=== PATIENT | male | born 1940 | race Caucasian/White ===

== ENCOUNTER 2017-01-06 07:51 | Day surgery (SDC) | payer MEDICARE, OTHER ==
[2017-01-06] MEDS ORDERED: Lactated Ringers 1,000 ML IV SCH (08:00)
[2017-01-06] MEDS ORDERED: Propofol 200 MG/20 ML SDV IV ONE (10:00)
[2017-01-06] MEDS ORDERED: Midazolam 1 MG/ML 2 ML SDV IV ONE (10:00)
--- NOTE | 2017-01-06 10:13 | PCM.OPNOTE ---
- General Post-Op/Procedure Note Date of Surgery/Procedure: 01/06/17 Operative Procedure(s): c scope Findings: in adequate prep diverticulosis Pre Op Diagnosis: screening Post-Op Diagnosis: in adequate prep. diverticulosis Anesthesia Technique: MAC Primary Surgeon: Jean-Claude Sanchez Anesthesia Provider: Lynn Evans Pathology: none Complications: None Condition: Good Free Text/Narrative:: see dictation n
[2017-01-06 11:20] VITALS: BP 132/74
--- NOTE | 2017-01-06 13:51 | OR ---
DATE OF OPERATION: 01/06/2017 SURGEON: Jean-Claude Sanchez MD PROCEDURE PERFORMED: Colonoscopy. PREOPERATIVE DIAGNOSIS: Colon cancer screening. POSTOPERATIVE DIAGNOSIS: Diverticulosis, inadequate prep. INDICATIONS FOR PROCEDURE: This is a 76-year-old white male who presents for followup colonoscopy, essentially without complaints. He was offered and accepted same. DESCRIPTION OF OPERATION: After an excellent IV sedation was administered, digital rectal exam was performed. Liquid stool was encountered. Flexible colonoscope was inserted and advanced without difficulty to the cecum. While we were able to reach the cecum, the prep was marginal at best. He had large deposits of thinned out particulate matter that we were able to irrigate. We were not able to successfully aspirate. The scope was then withdrawn. He was noted to have some scattered diverticula, but we could not clear the colon. He will be re-prepped and brought back at a later date. /[id number] /MODL
== END 2017-01-06 11:40 | disposition home or self-care (01) ==
LOC: FB.SDS 07:51
PROVIDERS: ATTEND Surgery
DX: Z12.11 Encounter for screening for malignant neoplasm of colon (principal); K57.30 Diverticulosis of large intestine without perforation or abscess without bleeding; I10 Essential (primary) hypertension; Z91.040 Latex allergy status; Z79.82 Long term (current) use of aspirin; Z79.84 Long term (current) use of oral hypoglycemic drugs; Z79.899 Other long term (current) drug therapy; N40.1 Benign prostatic hyperplasia with lower urinary tract symptoms; I25.810 Atherosclerosis of coronary artery bypass graft(s) without angina pectoris; E78.5 Hyperlipidemia, unspecified; I73.9 Peripheral vascular disease, unspecified; E11.9 Type 2 diabetes mellitus without complications; F32.9 Major depressive disorder, single episode, unspecified; Z96.651 Presence of right artificial knee joint; Z98.890 Other specified postprocedural states; Z87.891 Personal history of nicotine dependence
CPT/HCPCS: 00810; 82962; G0121; J2250; J2704; J7120

== ENCOUNTER 2017-01-07 08:44 | Day surgery (SDC) | payer MEDICARE, OTHER ==
[2017-01-07] MEDS ORDERED: Lactated Ringers 1,000 ML IV SCH (08:45)
[2017-01-07] MEDS ORDERED: Sodium Chloride 0.9% 10 ML Syringe FLUSH PRN (08:45)
[2017-01-07] MEDS ORDERED: Propofol 200 MG/20 ML SDV IV ONE (11:40)
[2017-01-07] MEDS ORDERED: Midazolam 1 MG/ML 2 ML SDV IV ONE (11:40)
--- NOTE | 2017-01-07 12:11 | PCM.OPNOTE ---
- General Post-Op/Procedure Note Date of Surgery/Procedure: 01/07/17 Operative Procedure(s): c scope with bx Findings: polyps ascending, sigmoid and rectum x2 Pre Op Diagnosis: screening Post-Op Diagnosis: polyps ascending, sigmoid and rectum x2. sigmioid diverticulosis Anesthesia Technique: MAC Primary Surgeon: Jean-Claude Sanchez Anesthesia Provider: Lynn Evans Pathology: polyps ascending, sigmoid and rectum x2 Complications: None Condition: Good Free Text/Narrative:: see dictation
[2017-01-07 13:00] VITALS: BP 152/66
--- NOTE | 2017-01-07 18:34 | OR ---
DATE OF OPERATION: 01/07/2017 SURGEON: Jean-Claude Sanchez MD PROCEDURE PERFORMED: Screening colonoscopy. PREOPERATIVE DIAGNOSIS: Need for screening C scope. POSTOPERATIVE DIAGNOSIS: Polyp ascending colon, polyp sigmoid colon, and rectal polyp x2 and sigmoid diverticulosis. INDICATIONS FOR PROCEDURE: This is a 76-year-old white male, who presents with the above-mentioned complaints. He was offered and accepted same. DESCRIPTION OF OPERATION: After an excellent IV sedation was administered, digital rectal exam was performed. No marked abnormality was noted. Flexible colonoscope was inserted and advanced without difficulty to the cecum. The prep was much improved from yesterday. Following findings were noted; ascending colon, small polypoid lesion, biopsied with cold biopsy forceps and sent for permanent. Transverse colon, unremarkable. Descending colon, unremarkable. Sigmoid, scattered diverticula. In the distal colon, there was a sigmoid polyp which was biopsied with cold biopsy forceps and sent for permanent. In the mid rectum, two polyps, one pedunculated biopsied with cold loop snare and one that was flat. This was biopsied and submitted in the same container. Colon was deflated, scope was removed. The patient tolerated the procedure well, and was taken to recovery room in good condition. /[id number] /MODL
== END 2017-01-07 13:25 | disposition home or self-care (01) ==
LOC: FB.SDS 08:44
PROVIDERS: ATTEND Surgery
DX: Z12.11 Encounter for screening for malignant neoplasm of colon (principal); D12.2 Benign neoplasm of ascending colon; D12.8 Benign neoplasm of rectum; K63.5 Polyp of colon; K57.30 Diverticulosis of large intestine without perforation or abscess without bleeding; I10 Essential (primary) hypertension; M19.90 Unspecified osteoarthritis, unspecified site; F34.1 Dysthymic disorder; E78.5 Hyperlipidemia, unspecified; F19.20 Other psychoactive substance dependence, uncomplicated; I73.9 Peripheral vascular disease, unspecified; E11.9 Type 2 diabetes mellitus without complications; F41.9 Anxiety disorder, unspecified; F32.9 Major depressive disorder, single episode, unspecified; I25.10 Atherosclerotic heart disease of native coronary artery without angina pectoris; Z95.1 Presence of aortocoronary bypass graft; Z79.84 Long term (current) use of oral hypoglycemic drugs; Z79.1 Long term (current) use of non-steroidal anti-inflammatories (NSAID); Z79.899 Other long term (current) drug therapy; Z79.82 Long term (current) use of aspirin; Z91.040 Latex allergy status; Z87.891 Personal history of nicotine dependence
CPT/HCPCS: 00810; 45380; 82962; 88305; J2250; J2704; J7120

== ENCOUNTER 2019-09-26 07:36 | Day surgery (SDC) | payer MEDICARE, OTHER ==
[~2019-09-26 07:36] MED LIST: Lactated Ringers 1,000 ML IV SCH; Sodium Chloride 0.9% 10 ML Syringe FLUSH PRN
[2019-09-26] MEDS ORDERED: fentaNYL 100 MCG/2 ML SDV IV ONE (07:37)
[2019-09-26] MEDS ORDERED: Midazolam 1 MG/ML 2 ML SDV IV ONE (07:37)
[2019-09-26] MEDS ORDERED: acetaZOLAMIDE 500 MG Cap.ER PO ONE ×2 (09:00→10:10)
[2019-09-26 10:28] VITALS: BP 119/65; PULSE 51
--- NOTE | 2019-09-26 14:54 | OR ---
DATE OF OPERATION: 09/26/2019 SURGEON: Leanne Turcios MD PREOPERATIVE DIAGNOSIS: Visually significant cataract, right eye. POSTOPERATIVE DIAGNOSIS: Visually significant cataract, right eye. PROCEDURES PERFORMED: Phacoemulsification with intraocular lens placement, right eye. ASSISTANTS: None. ANESTHESIA: Local with sedation. COMPLICATIONS: None. BLOOD LOSS: None. IMPLANTS: Jesus AU00T0, 20.5 diopter lens, serial number [id number], implanted. CDE: 1.55. DESCRIPTION OF PROCEDURE: After risks and benefits were reviewed with the patient, consent was obtained in the preoperative area, and the operative eye was marked with a surgical pen. In the preoperative area, a pledget was used to dilate the pupil consisting of a mixture of phenylephrine 10%, cyclopentolate 2%, moxifloxacin 0.5%, and bupivacaine 0.75%. The patient was taken to the operating room, where a time-out was performed, and the patient was placed under monitored anesthesia care. Topical tetracaine was used for anesthesia. The operative eye was prepped and draped for ophthalmic surgery, and the microscope was brought into position and focused. A paracentesis incision was made, followed by injection of preservative-free 1% lidocaine into the anterior chamber, followed by injection of Viscoat into the anterior chamber. A microkeratome blade was used to make a corneal limbal incision temporarily. A cystotome was used to make the beginning of the capsulorrhexis, which was carried around 360 degrees in a curvilinear fashion using Utrata forceps. A Tanner cannula with BSS was used to hydrodissect and hydrodelineate the nucleus. The nucleus was removed in a divide and conquer manner using phacoemulsification. Irrigation and aspiration were used to remove the remaining cortical material. Provisc was used to inflate the capsular bag, and a pre-loaded 20.5 diopter lens, serial number [id number] was injected into the capsular bag. A Sinskey hook was used to position and center the lens. Next, irrigation and aspiration was used to remove any remaining viscoelastic and cortical material from the anterior chamber. BSS on a cannula was used to inflate the anterior chamber and hydrate the wound. The wound was checked and found to be watertight. 1 mg of Moxifloxacin was injected into the anterior chamber. Drapes were removed and the eye was cleaned. A drop of brimonidine 0.15% and a drop of TobraDex was placed. The eye was shielded, and the patient was taken to the recovery room in stable condition. /[id number] MELVIN/MERRILL CC: SOFI PEREA PA-C MTDD
== END 2019-09-26 10:30 | disposition home or self-care (01) ==
LOC: FB.SDS 07:36
PROVIDERS: ATTEND Ophthalmology
DX: E11.36 Type 2 diabetes mellitus with diabetic cataract (principal); H25.13 Age-related nuclear cataract, bilateral; I10 Essential (primary) hypertension; I25.119 Atherosclerotic heart disease of native coronary artery with unspecified angina pectoris; E78.49 Other hyperlipidemia; N40.1 Benign prostatic hyperplasia with lower urinary tract symptoms; N13.8 Other obstructive and reflux uropathy; E78.5 Hyperlipidemia, unspecified; M19.90 Unspecified osteoarthritis, unspecified site; F41.9 Anxiety disorder, unspecified; F32.9 Major depressive disorder, single episode, unspecified; Z87.891 Personal history of nicotine dependence; Z79.02 Long term (current) use of antithrombotics/antiplatelets; Z79.82 Long term (current) use of aspirin; Z91.040 Latex allergy status; Z79.899 Other long term (current) drug therapy
CPT/HCPCS: 66984; A9270; J7120; 00142-QZ; 82962; J2250; J3010; V2632

== ENCOUNTER 2019-10-10 06:57 | Day surgery (SDC) | payer MEDICARE, OTHER ==
[2019-10-10] MEDS ORDERED: fentaNYL 100 MCG/2 ML SDV IV ONE (06:58)
[2019-10-10] MEDS ORDERED: Midazolam 1 MG/ML 2 ML SDV IV ONE (06:58)
[2019-10-10] MEDS ORDERED: Lactated Ringers 1,000 ML IV SCH (07:00)
[2019-10-10 07:26] VITALS: PULSE 57
[2019-10-10] MEDS ORDERED: acetaZOLAMIDE 500 MG Cap.ER PO ONE (09:00)
[2019-10-10 09:34] VITALS: BP 110/78
--- NOTE | 2019-10-11 08:31 | OR ---
DATE OF OPERATION: 10/10/2019 SURGEON: Leanne Turcios MD PREOPERATIVE DIAGNOSIS: Visually significant cataract, left eye. POSTOPERATIVE DIAGNOSIS: Visually significant cataract, left eye. PROCEDURES PERFORMED: Phacoemulsification with intraocular lens placement, left eye. ASSISTANTS: None. ANESTHESIA: Local with sedation. COMPLICATIONS: None. BLOOD LOSS: None. IMPLANTS: An Jesus AU00T0, 21.5 diopter lens, serial number [id number] implanted. CDE: 3.0. DESCRIPTION OF PROCEDURE: After risks and benefits were reviewed with the patient, consent was obtained in the preoperative area, and the operative eye was marked with a surgical pen. In the preoperative area, a pledget was used to dilate the pupil consisting of a mixture of phenylephrine 10%, cyclopentolate 2%, moxifloxacin 0.5%, and bupivacaine 0.75%. The patient was taken to the operating room, where a time-out was performed, and the patient was placed under monitored anesthesia care. Topical tetracaine was used for anesthesia. The operative eye was prepped and draped for ophthalmic surgery, and the microscope was brought into position and focused. A paracentesis incision was made, followed by injection of preservative-free 1% lidocaine into the anterior chamber, followed by injection of Viscoat into the anterior chamber. A microkeratome blade was used to make a corneal limbal incision temporally. A cystotome was used to make the beginning of the capsulorrhexis, which was carried around 360 degrees in a curvilinear fashion using Utrata forceps. A Tanner cannula with BSS was used to hydrodissect and hydrodelineate the nucleus. The nucleus was removed in a divide and conquer manner using phacoemulsification. Irrigation and aspiration were used to remove the remaining cortical material. Provisc was used to inflate the capsular bag, and a pre-loaded 21.5 Diopter lens, serial number [id number] was injected into the capsular bag. A Sinskey hook was used to position and center the lens. Next, irrigation and aspiration was used to remove any remaining viscoelastic and cortical material from the anterior chamber. BSS on a cannula was used to inflate the anterior chamber and hydrate the wound. The wound was checked and found to be watertight. 1 mg of Moxifloxacin was injected into the anterior chamber. Drapes were removed and the eye was cleaned. A drop of brimonidine 0.15% and a drop of TobraDex was placed. The eye was shielded, and the patient was taken to the recovery room in stable condition. /[id number] MELVIN/MERRILL CC: SOFI PEREA PA-C MTDD
== END 2019-10-10 11:20 | disposition home or self-care (01) ==
LOC: FB.SDS 06:57
PROVIDERS: ATTEND Ophthalmology
DX: E11.36 Type 2 diabetes mellitus with diabetic cataract (principal); H02.88B Meibomian gland dysfunction left eye, upper and lower eyelids; H02.88A Meibomian gland dysfunction right eye, upper and lower eyelids; H52.03 Hypermetropia, bilateral; H52.4 Presbyopia; H52.223 Regular astigmatism, bilateral; K21.9 Gastro-esophageal reflux disease without esophagitis; E78.5 Hyperlipidemia, unspecified; I10 Essential (primary) hypertension; I25.119 Atherosclerotic heart disease of native coronary artery with unspecified angina pectoris; Z96.1 Presence of intraocular lens; Z91.040 Latex allergy status; Z79.899 Other long term (current) drug therapy; Z79.02 Long term (current) use of antithrombotics/antiplatelets; Z79.82 Long term (current) use of aspirin
CPT/HCPCS: 00142; 66984; 82962; A9270; J2250; J3010; J7120; V2632

== ENCOUNTER 2020-04-02 01:47 | Inpatient (IN) | payer MEDICARE, OTHER ==
[2020-04-02] MEDS ORDERED: HYDROmorphone 2 MG/ML SDV IVPUSH ONE (02:37)
[2020-04-02] MEDS ORDERED: Ondansetron 4 MG/2 ML SDV IVPUSH ONE (02:37)
[2020-04-02] MEDS ORDERED: Diphtheria,Pertussis(Acell),Tetanus Vaccine 0.5 ML SDV IM ONE (02:41)
--- NOTE | 2020-04-02 02:50 | EDM.PDOC ---
ED HPI GENERAL MEDICAL PROBLEM - General Chief Complaint: Back Pain or Injury Stated Complaint: FELL Time Seen by Provider: 04/02/20 02:15 Source of Information: Reports: Patient History Limitations: Reports: No Limitations - History of Present Illness INITIAL COMMENTS - FREE TEXT/NARRATIVE: c/o L rib and flank pain at 6p he was walking through his garage, tripped on a small lip in the concrete, fell on L side, struck head and saw stars, no MON or neck pain now he sat in a chair when he got back to house, then had too much pain to get out of chair on his L side does not use a walker or cane, lives with only lab in [place] is prior creat 1.0 has a swollen L calf says he has abd pain "if you push in the right spot" altho did not appear to be tender anteriorly now on ASA and Plavix smoked in the past he took an oxycodone at home, EMS gave him 100 mcg of fentanyl h/o OK and CABG PCP is Rigoberto at [facility] who is only there on and Wed Treatments CORPORATE STATISTICAL FINANCIAL ANALYST: Reports: Other (see below) Other Treatments CORPORATE STATISTICAL FINANCIAL ANALYST: Fentanyl 100mcg IM prior to arrival, Oxycodone 5mg R mid-back Pain Score (Numeric/FACES): 2 L mid-back Pain Score (Numeric/FACES): 2 - Related Data Allergies Allergy/AdvReac Type Severity Reaction Status Date / Time latex Allergy Rash Verified 04/02/20 01:58 Home Meds: Home Meds Aspirin [Low Dose Aspirin EC] 81 mg PO DAILY 01/05/17 [History] Efinaconazole [Jublia] 1 applic TOP DAILY 01/05/17 [History] Ezetimibe [Zetia] 10 mg PO DAILY 01/05/17 [History] Ketoconazole [Nizoral 2% Shampoo] 1 applic TOP ASDIRECTED PRN 01/05/17 [History] Losartan/Hydrochlorothiazide [Losartan-HCTZ 100-25 MG] 0.5 tab PO DAILY 01/05/17 [History] Metoprolol Tartrate [Lopressor] 100 mg PO BID 01/05/17 [History] Omeprazole 20 mg PO DAILY 01/05/17 [History] Rosuvastatin [Crestor] 40 mg PO BEDTIME 01/05/17 [History] Sennosides/Docusate Sodium [Senna-Docusate Sodium] 1 each PO BID PRN 01/05/17 [History] Sertraline [Zoloft] 50 mg PO BEDTIME 01/05/17 [History] Sertraline [Zoloft] 150 mg PO DAILY 01/05/17 [History] amLODIPine [Norvasc] 10 mg PO DAILY 01/05/17 [History] buPROPion [Wellbutrin SR] 150 mg PO DAILY 01/05/17 [History] fluocinolone acetonide oiL [Dermotic] 4 drop EARBOTH BID PRN 01/05/17 [History] Clopidogrel [Plavix] 75 mg PO DAILY 09/11/19 [History] Dutasteride [Avodart] 0.5 mg PO DAILY 09/11/19 [History] Cyclobenzaprine [Flexeril] 5 mg TID PRN 04/02/20 [History] metFORMIN [Glucophage] 500 mg PO BIDMEALS 04/02/20 [History] Past Medical History HEENT History: Reports: Allergic Rhinitis, Cataract, Impaired Vision, Sinusitis, Other (See Below) Other HEENT History: CHRONIC CONJUCTIVITIS, MEIBOMIAN GLAND DYSFUNCTION, HYPEROPIA, ASTIGMATISM Cardiovascular History: Reports: Angina, CAD, High Cholesterol, Hypertension, OK, PVD Other Cardiovascular History: ATHEROSCLEROSIS Respiratory History: Reports: None Gastrointestinal History: Reports: GERD, Hemorrhoids Other Gastrointestinal History: RECTAL POLYP Genitourinary History: Reports: BPH, Prostate Disorder, Other (See Below) Other Genitourinary History: POLYURIA, LUTS RESIDENTIAL REMODELING SUBCONTRACTOR History: Reports: None Musculoskeletal History: Reports: Arthritis, Osteoarthritis Other Musculoskeletal History: SPINAL STENOSIS OF LUMBAR REGION, Neurological History: Reports: Neuropathy, Diabetic Psychiatric History: Reports: Anxiety, Depression Endocrine/Metabolic History: Reports: Diabetes, Type II, Obesity/BMI 30+ Hematologic History: Reports: Anticoagulation Therapy Other Hematologic History: NONTHROMBOCYTOPENIA PURPURA Oncologic (Cancer) History: Reports: Prostate - Infectious Disease History Infectious Disease History: Reports: Chicken Pox, Measles - Past Surgical History HEENT Surgical History: Reports: Cataract Surgery, Naso-Sinus Surgery Other HEENT Surgeries/Procedures: FESS. PHACO IOL RIGHT Cardiovascular Surgical History: Reports: Coronary Artery Bypass, Coronary Artery Stent, Varicose, Vascular Surgery Other Cardiovascular Surgeries/Procedures: VENOUS INSUFFICIENCY, 5 vessel CABG GI Surgical History: Reports: Colonoscopy Other GI Surgeries/Procedures: HEMORRHOIDS Other Male Surgeries/Procedures: ENLARGED PROSTATE, MALIGNANT NEOPLASM OF PROSTATE Musculoskeletal Surgical History: Reports: Knee Replacement Other Musculoskeletal Surgeries/Procedures:: R knee replacement Dermatological Surgical History: Reports: Other (See Below) Social & Family History - Family History Family Medical History: Noncontributory - Tobacco Use Smoking Status *Q: Former Smoker Years of Tobacco use: 25 Used Tobacco, but Quit: Yes Month/Year Tobacco Last Used: aug - Caffeine Use Caffeine Use: Reports: Coffee, Soda - Recreational Drug Use Recreational Drug Use: No ED ROS GENERAL - Review of Systems Review Of Systems: See Below Constitutional: Reports: No Symptoms HEENT: Reports: No Symptoms Respiratory: Reports: No Symptoms Cardiovascular: Reports: No Symptoms, Other (rib pain) Endocrine: Reports: No Symptoms GI/Abdominal: Reports: No Symptoms : Reports: No Symptoms Musculoskeletal: Reports: Back Pain Skin: Reports: No Symptoms Neurological: Reports: No Symptoms Psychiatric: Reports: No Symptoms Hematologic/Lymphatic: Reports: No Symptoms Immunologic: Reports: No Symptoms ED EXAM, GENERAL - Physical Exam Exam: See Below Exam Limited By: No Limitations General Appearance: Alert, WD/WN, Moderate Distress, Other (lying on R side, wincing at time when he moves, alert, conversant) Eye Exam: Bilateral Eye: PERRL Ears: Hearing Grossly Normal Nose: Normal Inspection Head: Atraumatic, Normocephalic, Other (NT, no STS, no ecchymosis) Neck: Normal Inspection, Supple, Non-Tender, Other (no PT, no spasm) Cardiovascular: Regular Rate, Rhythm, No Murmur GI/Abdominal: Other (inc'd adipose, protuberant, no definite tender however pt lying on R side, did have 2+ tender and winced at L flank in lumbar area in midscapular line) Back Exam: Other (back 2+ tender in L midscapular line in lower hemithorax without STS or ecchymosis, no crepitus noted in same area altho RN had reported some earlier) Extremities: Other (1-2+ edema to knees b/l, swollen L calf with smooth shiny skin that is 1.25x the size of R calf) Neurological: Alert, Oriented, CN II-XII Intact, Normal Cognition, No Motor/Sensory Deficits, Other (very talkative, friendly) Psychiatric: Normal Affect, Normal Mood Skin Exam: Warm, Dry, Intact, Normal Color, No Rash Lymphatic: No Adenopathy Course - Vital Signs Last Recorded V/S: Last Vital Signs Temp 36.5 C 04/02/20 01:47 Pulse 59 L 04/02/20 05:30 Resp 16 04/02/20 05:30 BP 134/66 04/02/20 05:30 Pulse Ox 95 04/02/20 05:30 - Orders/Labs/Meds Orders: Active Orders 24 hr Category Date Time Status Admission Status [Patient Status] [ADT] Routine ADT 04/02/20 05:38 Ordered EKG Documentation Completion [RC] ASDIRECTED Care 04/02/20 02:38 Active Oxygen Therapy Adult [Oxygen Therapy, ED] [RC] Care 04/02/20 04:00 Active ASDIRECTED Vaccines to be Administered [RC] PER UNIT ROUTINE Care 04/02/20 02:41 Active Chest Abdomen Pelvis w Cont [CT] Stat Exams 04/02/20 02:37 Taken Sodium Chloride 0.9% [Saline Flush] Med 04/02/20 02:51 Active 10 ml FLUSH ASDIRECTED PRN EKG 12 Lead [EK] Routine Ther 04/02/20 02:37 Ordered Medication Orders Sodium Chloride (Saline Flush) 10 ml FLUSH ASDIRECTED PRN PRN Reason: Keep Vein Open Last Admin: 04/02/20 02:53 Dose: 10 ml Documented by: REGINA Labs: Laboratory Tests 04/02/20 04/02/20 04/02/20 Range/Units 02:40 02:50 02:50 WBC 9.8 (4.5-12.0) X10-3/uL RBC 4.16 L (4.30-5.75) x10(6)uL Hgb 12.4 L (13.5-17.8) g/dL Hct 38.2 (30.0-51.3) % MCV 91.7 (80-96) fL MCH 29.7 (27.7-33.6) pg MCHC 32.4 (32.2-35.4) g/dL RDW 13.0 (11.5-15.5) % Plt Count 210 (125-369) X10(3)uL MPV 7.6 (7.4-10.4) fL Neut % (Auto) 77.9 (46-82) % Lymph % (Auto) 9.1 L (13-37) % [place] % (Auto) 9.0 (4-12) % Eos % (Auto) 4 (1.0-5.0) % Baso % (Auto) 0 (0-2) % Neut # (Auto) 7.6 (1.6-8.3) # Lymph # (Auto) 0.9 (0.6-5.0) # [place] # (Auto) 0.9 (0.0-1.3) # Eos # (Auto) 0.4 (0.0-0.8) # Baso # (Auto) 0.0 (0.0-0.2) # PT (9.0-11.1) sec INR (1.00-1.24) APTT (24.4-33.2) SECONDS D-Dimer, Quantitative (0.0-0.59) mg/LFEU Sodium 140 (135-145) mmol/L Potassium 3.9 (3.5-5.3) mmol/L Chloride 103 (100-110) mmol/L Carbon Dioxide 31 (21-32) mmol/L BUN 24 H (7-18) mg/dL Creatinine 1.3 (0.70-1.30) mg/dL Est Cr Clr Drug Dosing 45.31 mL/min Estimated GFR (MDRD) 53 L (>60) BUN/Creatinine Ratio 18.5 (9-20) Glucose 170 H (80-116) mg/dL Calcium 8.3 L (8.6-10.2) mg/dL Total Bilirubin 0.4 (0.1-1.3) mg/dL AST 83 H (5-25) IU/L ALT 125 H (12-36) U/L Alkaline Phosphatase 94 (56-112) IU/L Troponin I (4.0-60.3) pg/mL C-Reactive Protein (0.5-0.9) mg/dL NT-Pro-B Natriuret Pep (<=450) pg/mL Total Protein 7.1 (6.0-8.0) g/dL Albumin 3.0 L (3.2-4.6) g/dL Globulin 4.1 g/dL Albumin/Globulin Ratio 0.7 Urine Color Yellow (YELLOW) Urine Appearance Clear (CLEAR) Urine pH 7.0 H (5.0-6.5) Ur Specific [place] 1.005 L (1.010-1.025) Urine Protein Trace (NEGATIVE) mg/dL Urine Glucose (UA) Normal (NORMAL) mg/dL Urine Ketones Negative (NEGATIVE) mg/dL Urine Occult Blood Trace (NEGATIVE) Urine Nitrite Negative (NEGATIVE) Urine Bilirubin Negative (NEGATIVE) Urine Urobilinogen 4 H (NEGATIVE) mg/dL Ur Leukocyte Esterase Negative (NEGATIVE) Urine RBC 5-10 H (0-5) Urine WBC 0-5 (0-5) Ur Squamous Epith Cells Rare (NS,R,O) Urine Bacteria Few H (NS) Urine Mucus Few H (NS) 04/02/20 04/02/20 04/02/20 Range/Units 02:50 02:50 02:50 WBC (4.5-12.0) X10-3/uL RBC (4.30-5.75) x10(6)uL Hgb (13.5-17.8) g/dL Hct (30.0-51.3) % MCV (80-96) fL MCH (27.7-33.6) pg MCHC (32.2-35.4) g/dL RDW (11.5-15.5) % Plt Count (125-369) X10(3)uL MPV (7.4-10.4) fL Neut % (Auto) (46-82) % Lymph % (Auto) (13-37) % [place] % (Auto) (4-12) % Eos % (Auto) (1.0-5.0) % Baso % (Auto) (0-2) % Neut # (Auto) (1.6-8.3) # Lymph # (Auto) (0.6-5.0) # [place] # (Auto) (0.0-1.3) # Eos # (Auto) (0.0-0.8) # Baso # (Auto) (0.0-0.2) # PT 11.6 H (9.0-11.1) sec INR 1.08 (1.00-1.24) APTT (24.4-33.2) SECONDS D-Dimer, Quantitative 5.41 H (0.0-0.59) mg/LFEU Sodium (135-145) mmol/L Potassium (3.5-5.3) mmol/L Chloride (100-110) mmol/L Carbon Dioxide (21-32) mmol/L BUN (7-18) mg/dL Creatinine (0.70-1.30) mg/dL Est Cr Clr Drug Dosing mL/min Estimated GFR (MDRD) (>60) BUN/Creatinine Ratio (9-20) Glucose (80-116) mg/dL Calcium (8.6-10.2) mg/dL Total Bilirubin (0.1-1.3) mg/dL AST (5-25) IU/L ALT (12-36) U/L Alkaline Phosphatase (56-112) IU/L Troponin I 12.4 (4.0-60.3) pg/mL C-Reactive Protein 0.8 (0.5-0.9) mg/dL NT-Pro-B Natriuret Pep 338 (<=450) pg/mL Total Protein (6.0-8.0) g/dL Albumin (3.2-4.6) g/dL Globulin g/dL Albumin/Globulin Ratio Urine Color (YELLOW) Urine Appearance (CLEAR) Urine pH (5.0-6.5) Ur Specific [place] (1.010-1.025) Urine Protein (NEGATIVE) mg/dL Urine Glucose (UA) (NORMAL) mg/dL Urine Ketones (NEGATIVE) mg/dL Urine Occult Blood (NEGATIVE) Urine Nitrite (NEGATIVE) Urine Bilirubin (NEGATIVE) Urine Urobilinogen (NEGATIVE) mg/dL Ur Leukocyte Esterase (NEGATIVE) Urine RBC (0-5) Urine WBC (0-5) Ur Squamous Epith Cells (NS,R,O) Urine Bacteria (NS) Urine Mucus (NS) 04/02/20 Range/Units 02:50 WBC (4.5-12.0) X10-3/uL RBC (4.30-5.75) x10(6)uL Hgb (13.5-17.8) g/dL Hct (30.0-51.3) % MCV (80-96) fL MCH (27.7-33.6) pg MCHC (32.2-35.4) g/dL RDW (11.5-15.5) % Plt Count (125-369) X10(3)uL MPV (7.4-10.4) fL Neut % (Auto) (46-82) % Lymph % (Auto) (13-37) % [place] % (Auto) (4-12) % Eos % (Auto) (1.0-5.0) % Baso % (Auto) (0-2) % Neut # (Auto) (1.6-8.3) # Lymph # (Auto) (0.6-5.0) # [place] # (Auto) (0.0-1.3) # Eos # (Auto) (0.0-0.8) # Baso # (Auto) (0.0-0.2) # PT (9.0-11.1) sec INR (1.00-1.24) APTT 25.0 (24.4-33.2) SECONDS D-Dimer, Quantitative (0.0-0.59) mg/LFEU Sodium (135-145) mmol/L Potassium (3.5-5.3) mmol/L Chloride (100-110) mmol/L Carbon Dioxide (21-32) mmol/L BUN (7-18) mg/dL Creatinine (0.70-1.30) mg/dL Est Cr Clr Drug Dosing mL/min Estimated GFR (MDRD) (>60) BUN/Creatinine Ratio (9-20) Glucose (80-116) mg/dL Calcium (8.6-10.2) mg/dL Total Bilirubin (0.1-1.3) mg/dL AST (5-25) IU/L ALT (12-36) U/L Alkaline Phosphatase (56-112) IU/L Troponin I (4.0-60.3) pg/mL C-Reactive Protein (0.5-0.9) mg/dL NT-Pro-B Natriuret Pep (<=450) pg/mL Total Protein (6.0-8.0) g/dL Albumin (3.2-4.6) g/dL Globulin g/dL Albumin/Globulin Ratio Urine Color (YELLOW) Urine Appearance (CLEAR) Urine pH (5.0-6.5) Ur Specific [place] (1.010-1.025) Urine Protein (NEGATIVE) mg/dL Urine Glucose (UA) (NORMAL) mg/dL Urine Ketones (NEGATIVE) mg/dL Urine Occult Blood (NEGATIVE) Urine Nitrite (NEGATIVE) Urine Bilirubin (NEGATIVE) Urine Urobilinogen (NEGATIVE) mg/dL Ur Leukocyte Esterase (NEGATIVE) Urine RBC (0-5) Urine WBC (0-5) Ur Squamous Epith Cells (NS,R,O) Urine Bacteria (NS) Urine Mucus (NS) Meds: Medications Generic Name Dose Route Start Last Admin Trade Name Freq PRN Reason Stop Dose Admin Sodium Chloride 10 ml 04/02/20 02:51 04/02/20 02:53 Saline Flush FLUSH 10 ml ASDIRECTED PRN Administration Keep Vein Open Discontinued Medications Generic Name Dose Route Start Last Admin Trade Name Freq PRN Reason Stop Dose Admin Diphtheria/Tetanus/Acell Pertussis 0.5 ml 04/02/20 02:41 04/02/20 02:56 Adacel IM 04/02/20 02:42 0.5 ml .ONCE ONE Administration Hydromorphone HCl 2 mg 04/02/20 02:37 04/02/20 02:54 Dilaudid IVPUSH 04/02/20 02:38 2 mg ONETIME ONE Administration Iopamidol 100 ml 04/02/20 03:38 04/02/20 04:02 Isovue-370 (76%) IV 04/02/20 03:39 100 ml . DIRECTED ONE Administration Ondansetron HCl 4 mg 04/02/20 02:37 04/02/20 02:50 Zofran IVPUSH 04/02/20 02:38 4 mg ONETIME ONE Administration - Re-Assessments/Exams Free Text/Narrative Re-Assessment/Exam: 04/02/20 05:45 d-dimer 10x ULN in context of swollen R calf c/w R DVT, will give Lovenox pending RLE u/s later this AM as no bleed noted on CT does have rib fx's of 6-8 on L with multiple fx's of 7 but no flail chest on CT per radiologist is well as a tiny L pneumothorax and a small L pleural effusion pt still quite uncomfortable even after 2 mg Dilaudid pt agrees to admission Departure - Departure Time of Disposition: 05:41 Disposition: Admitted As Inpatient 68 Condition: Good Clinical Impression: Multiple fractures of ribs of left side, Pneumothorax, left, Pleural effusion on left, Elevated d-dimer, Hypoalbuminemia, Elevated liver function tests, Microscopic hematuria, Acute on chronic renal insufficiency, Normocytic nor mochromic anemia, First degree atrioventricular block, Abnormal EKG, Swelling of left lower extremity - Discharge Information *PRESCRIPTION DRUG MONITORING PROGRAM REVIEWED*: Not Applicable *COPY OF PRESCRIPTION DRUG MONITORING REPORT IN PATIENT RADHAMES: Not Applicable Referrals: Leatha Silverio NP [Primary Care Provider] - Forms: ED Department Discharge Sepsis Event Note (ED) - Evaluation Sepsis Screening Result: No Definite Risk - Focused Exam Vital Signs: Vital Signs Temp Pulse Resp BP Pulse Ox Pulse Ox 04/02/20 05:30 59 L 16 134/66 95 04/02/20 05:00 61 16 130/58 L 93 L 04/02/20 04:45 61 16 130/65 93 L 04/02/20 04:30 61 14 122/58 L 92 L 04/02/20 04:15 63 16 137/60 89 L 89 L 04/02/20 04:00 67 16 129/59 L 77 L 77 L 04/02/20 03:15 64 16 138/67 90 L 04/02/20 02:45 64 16 138/67 90 L 04/02/20 01:47 36.5 C 70 20 154/68 H 95 - My Orders Last 24 Hours: My Active Orders 04/02/20 02:37 Chest Abdomen Pelvis w Cont [CT] Stat EKG 12 Lead [EK] Routine 04/02/20 02:38 EKG Documentation Completion [RC] ASDIRECTED 04/02/20 02:41 Vaccines to be Administered [RC] PER UNIT ROUTINE 04/02/20 02:51 Sodium Chloride 0.9% [Saline Flush] 10 ml FLUSH ASDIRECTED PRN 04/02/20 04:00 Oxygen Therapy Adult [Oxygen Therapy, ED] [RC] ASDIRECTED 04/02/20 05:38 Admission Status [Patient Status] [ADT] Routine - Assessment/Plan Last 24 Hours: My Active Orders 04/02/20 02:37 Chest Abdomen Pelvis w Cont [CT] Stat EKG 12 Lead [EK] Routine 04/02/20 02:38 EKG Documentation Completion [RC] ASDIRECTED 04/02/20 02:41 Vaccines to be Administered [RC] PER UNIT ROUTINE 04/02/20 02:51 Sodium Chloride 0.9% [Saline Flush] 10 ml FLUSH ASDIRECTED PRN 04/02/20 04:00 Oxygen Therapy Adult [Oxygen Therapy, ED] [RC] ASDIRECTED 04/02/20 05:38 Admission Status [Patient Status] [ADT] Routine
[2020-04-02] MEDS: Sodium Chloride 0.9% 10 ML Syringe FLUSH PRN ×3 (02:53→21:25)
[2020-04-02] MEDS ORDERED: Iopamidol 755 Mg/ML 100 ML Bottle IV ONE (03:38)
[2020-04-02] MEDS ORDERED: Magnesium Hydroxide 400 MG/5 ML Susp 30 ML Cup PO PRN (05:53)
[2020-04-02] MEDS ORDERED: Zolpidem 5 MG Tab PO PRN (05:53)
[2020-04-02] MEDS ORDERED: Bisacodyl 5 MG Tab PO PRN (05:53)
[2020-04-02] MEDS ORDERED: Enoxaparin 100 MG/1 ML Syringe SUBCUT ONE (05:53)
[2020-04-02] MEDS ORDERED: HYDROmorphone 2 MG/ML SDV IVPUSH PRN (05:53)
[2020-04-02] MEDS ORDERED: Ondansetron 4 MG/2 ML SDV IV PRN (05:53)
[2020-04-02] MEDS ORDERED: Sodium Chloride 0.9% 10 ML Syringe FLUSH PRN (05:53)
[2020-04-02] MEDS ORDERED: oxyCODONE 5 MG Tab PO PRN (05:53)
[2020-04-02] MEDS ORDERED: FLUOCINOLONE ACETONIDE OIL EARBOTH PRN (06:06)
[2020-04-02] MEDS ORDERED: Acetaminophen/oxyCODONE 325-5 MG Tab PO PRN (08:51)
--- NOTE | 2020-04-02 08:58 | PCM.HP.2 ---
H&P History of Present Illness - General Date of Service: 04/02/20 Admit Problem/Dx: Admission Diagnosis/Problem Admission Diagnosis/Problem Rib pain on left side Source of Information: Patient, Old Records, Provider, RN History Limitations: Reports: No Limitations - History of Present Illness Initial Comments - Free Text/Narative: Mr. Lowery a 80 yo male admitted yesterday with multiple rib fractures after a fall on level ground. He came in by EMS, and is admitted for pain control. Pain is sharp severe worse with any movement. He has a history of coronary disease, hypertension, obesity, chronic left leg swelling. He also endorses a h/o HTN, DM and Insomnia. R mid-back Pain Score (Numeric/FACES): 2 L mid-back Pain Score (Numeric/FACES): 5 - Related Data Allergies/Adverse Reactions: Allergies Allergy/AdvReac Type Severity Reaction Status Date / Time latex Allergy Rash Verified 04/02/20 01:58 Home Medications: Home Meds Aspirin [Low Dose Aspirin EC] 81 mg PO DAILY 01/05/17 [History] Efinaconazole [Jublia] 1 applic TOP DAILY 01/05/17 [History] Ezetimibe [Zetia] 10 mg PO DAILY 01/05/17 [History] Ketoconazole [Nizoral 2% Shampoo] 1 applic TOP ASDIRECTED PRN 01/05/17 [History] Losartan/Hydrochlorothiazide [Losartan-HCTZ 100-25 MG] 0.5 tab PO DAILY 01/05/17 [History] Metoprolol Tartrate [Lopressor] 100 mg PO BID 01/05/17 [History] Omeprazole 20 mg PO DAILY 01/05/17 [History] Rosuvastatin [Crestor] 40 mg PO BEDTIME 01/05/17 [History] Sennosides/Docusate Sodium [Senna-Docusate Sodium] 1 each PO BID PRN 01/05/17 [History] Sertraline [Zoloft] 50 mg PO BEDTIME 01/05/17 [History] Sertraline [Zoloft] 150 mg PO DAILY 01/05/17 [History] amLODIPine [Norvasc] 10 mg PO DAILY 01/05/17 [History] buPROPion [Wellbutrin SR] 150 mg PO DAILY 01/05/17 [History] fluocinolone acetonide oiL [Dermotic] 4 drop EARBOTH BID PRN 01/05/17 [History] Clopidogrel [Plavix] 75 mg PO DAILY 09/11/19 [History] Dutasteride [Avodart] 0.5 mg PO DAILY 09/11/19 [History] Cyclobenzaprine [Flexeril] 5 mg TID PRN 04/02/20 [History] metFORMIN [Glucophage] 500 mg PO BIDMEALS 04/02/20 [History] Past Medical History HEENT History: Reports: Allergic Rhinitis, Cataract, Impaired Vision, Sinusitis, Other (See Below) Other HEENT History: CHRONIC CONJUCTIVITIS, MEIBOMIAN GLAND DYSFUNCTION, H YPEROPIA, ASTIGMATISM Cardiovascular History: Reports: Angina, CAD, High Cholesterol, Hypertension, DC, PVD Other Cardiovascular History: ATHEROSCLEROSIS Respiratory History: Reports: None Gastrointestinal History: Reports: GERD, Hemorrhoids Other Gastrointestinal History: RECTAL POLYP Genitourinary History: Reports: BPH, Prostate Disorder, Other (See Below) Other Genitourinary History: POLYURIA, 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 Musculoskeletal History: Reports: Arthritis, Osteoarthritis Other Musculoskeletal History: SPINAL STENOSIS OF LUMBAR REGION, Neurological History: Reports: Neuropathy, Diabetic Psychiatric History: Reports: Anxiety, Depression Endocrine/Metabolic History: Reports: Diabetes, Type II, Obesity/BMI 30+ Hematologic History: Reports: Anticoagulation Therapy Other Hematologic History: NONTHROMBOCYTOPENIA PURPURA Oncologic (Cancer) History: Reports: Prostate - Infectious Disease History Infectious Disease History: Reports: Chicken Pox, Measles - Past Surgical History HEENT Surgical History: Reports: Cataract Surgery, Naso-Sinus Surgery Other HEENT Surgeries/Procedures: FESS. PHACO IOL RIGHT Cardiovascular Surgical History: Reports: Coronary Artery Bypass, Coronary Artery Stent, Varicose, Vascular Surgery Other Cardiovascular Surgeries/Procedures: VENOUS INSUFFICIENCY, 5 vessel CABG GI Surgical History: Reports: Colonoscopy Other GI Surgeries/Procedures: HEMORRHOIDS Other Male Surgeries/Procedures: ENLARGED PROSTATE, MALIGNANT NEOPLASM OF PROSTATE Musculoskeletal Surgical History: Reports: Knee Replacement Other Musculoskeletal Surgeries/Procedures:: R knee replacement Social & Family History - Family History Family Medical History: Noncontributory - Tobacco Use Smoking Status *Q: Former Smoker Years of Tobacco use: 25 Used Tobacco, but Quit: Yes Month/Year Tobacco Last Used: aug - Caffeine Use Caffeine Use: Reports: Coffee, Soda - Recreational Drug Use Recreational Drug Use: No H&P Review of Systems - Review of Systems: Review Of Systems: Comprehensive ROS is negative, except as noted in HPI. Exam - Exam Exam: See Below - Vital Signs Vital Signs: Last Vital Signs Temp 98.3 F 04/02/20 07:58 Pulse 58 L 04/02/20 07:58 Resp 18 04/02/20 07:58 BP 127/69 04/02/20 07:58 Pulse Ox 92 L 04/02/20 07:58 Weight: 93.468 kg - Exam Quality Assessment: Supplemental Oxygen General: Alert, Oriented, 4 HEENT: PERRLA, Hearing Intact, Mucosa Moist & [place], Nares Patent, Normal Nasal Septum, Posterior Pharynx Clear, Conjunctiva Clear, EOMI, EACs Clear, TMs Clear Neck: Supple, Trachea Midline, 2 Lungs: Decreased Breath Sounds, Other (Tender rib cage,prosterioly) Cardiovascular: Regular Rate GI/Abdominal Exam: Normal Bowel Sounds, Soft (Male) Exam: Deferred Rectal (Males) Exam: Deferred Back Exam: Normal Inspection, Full Range of Motion, NT Extremities: Normal Inspection, Normal Range of Motion, Non-Tender, No Pedal Edema, Normal Capillary Refill Skin: Warm, Dry, Intact Neurological: Cranial Nerves Intact, Reflexes Equal Bilateral Neuro Extensive - Mental Status: Alert, Oriented x3, Normal Mood/Affect, Normal Cognition Neuro Extensive - Motor, Sensory, Reflexes: CN II-XII Intact, Normal Gait, N ormal Reflexes Psychiatric: Alert, Normal Affect, Normal Mood - Patient Data Lab Results Last 24 hrs: Laboratory Results - last 24 hr 04/02/20 04/02/20 04/02/20 Range/Units 02:40 02:50 02:50 WBC 9.8 (4.5-12.0) X10-3/uL RBC 4.16 L (4.30-5.75) x10(6)uL Hgb 12.4 L (13.5-17.8) g/dL Hct 38.2 (30.0-51.3) % MCV 91.7 (80-96) fL MCH 29.7 (27.7-33.6) pg MCHC 32.4 (32.2-35.4) g/dL RDW 13.0 (11.5-15.5) % Plt Count 210 (125-369) X10(3)uL MPV 7.6 (7.4-10.4) fL Neut % (Auto) 77.9 (46-82) % Lymph % (Auto) 9.1 L (13-37) % [place] % (Auto) 9.0 (4-12) % Eos % (Auto) 4 (1.0-5.0) % Baso % (Auto) 0 (0-2) % Neut # (Auto) 7.6 (1.6-8.3) # Lymph # (Auto) 0.9 (0.6-5.0) # [place] # (Auto) 0.9 (0.0-1.3) # Eos # (Auto) 0.4 (0.0-0.8) # Baso # (Auto) 0.0 (0.0-0.2) # PT (9.0-11.1) sec INR (1.00-1.24) APTT (24.4-33.2) SECONDS D-Dimer, Quantitative (0.0-0.59) mg/LFEU Sodium 140 (135-145) mmol/L Potassium 3.9 (3.5-5.3) mmol/L Chloride 103 (100-110) mmol/L Carbon Dioxide 31 (21-32) mmol/L BUN 24 H (7-18) mg/dL Creatinine 1.3 (0.70-1.30) mg/dL Est Cr Clr Drug Dosing 45.31 mL/min Estimated GFR (MDRD) 53 L (>60) BUN/Creatinine Ratio 18.5 (9-20) Glucose 170 H (80-116) mg/dL Calcium 8.3 L (8.6-10.2) mg/dL Total Bilirubin 0.4 (0.1-1.3) mg/dL AST 83 H (5-25) IU/L ALT 125 H (12-36) U/L Alkaline Phosphatase 94 (56-112) IU/L Troponin I (4.0-60.3) pg/mL C-Reactive Protein (0.5-0.9) mg/dL NT-Pro-B Natriuret Pep (<=450) pg/mL Total Protein 7.1 (6.0-8.0) g/dL Albumin 3.0 L (3.2-4.6) g/dL Globulin 4.1 g/dL Albumin/Globulin Ratio 0.7 Urine Color Yellow (YELLOW) Urine Appearance Clear (CLEAR) Urine pH 7.0 H (5.0-6.5) Ur Specific [place] 1.005 L (1.010-1.025) Urine Protein Trace (NEGATIVE) mg/dL Urine Glucose (UA) Normal (NORMAL) mg/dL Urine Ketones Negative (NEGATIVE) mg/dL Urine Occult Blood Trace (NEGATIVE) Urine Nitrite Negative (NEGATIVE) Urine Bilirubin Negative (NEGATIVE) Urine Urobilinogen 4 H (NEGATIVE) mg/dL Ur Leukocyte Esterase Negative (NEGATIVE) Urine RBC 5-10 H (0-5) Urine WBC 0-5 (0-5) Ur Squamous Epith Cells Rare (NS,R,O) Urine Bacteria Few H (NS) Urine Mucus Few H (NS) 04/02/20 04/02/20 04/02/20 Range/Units 02:50 02:50 02:50 WBC (4.5-12.0) X10-3/uL RBC (4.30-5.75) x10(6)uL Hgb (13.5-17.8) g/dL Hct (30.0-51.3) % MCV (80-96) fL MCH (27.7-33.6) pg MCHC (32.2-35.4) g/dL RDW (11.5-15.5) % Plt Count (125-369) X10(3)uL MPV (7.4-10.4) fL Neut % (Auto) (46-82) % Lymph % (Auto) (13-37) % [place] % (Auto) (4-12) % Eos % (Auto) (1.0-5.0) % Baso % (Auto) (0-2) % Neut # (Auto) (1.6-8.3) # Lymph # (Auto) (0.6-5.0) # [place] # (Auto) (0.0-1.3) # Eos # (Auto) (0.0-0.8) # Baso # (Auto) (0.0-0.2) # PT 11.6 H (9.0-11.1) sec INR 1.08 (1.00-1.24) APTT (24.4-33.2) SECONDS D-Dimer, Quantitative 5.41 H (0.0-0.59) mg/LFEU Sodium (135-145) mmol/L Potassium (3.5-5.3) mmol/L Chloride (100-110) mmol/L Carbon Dioxide (21-32) mmol/L BUN (7-18) mg/dL Creatinine (0.70-1.30) mg/dL Est Cr Clr Drug Dosing mL/min Estimated GFR (MDRD) (>60) BUN/Creatinine Ratio (9-20) Glucose (80-116) mg/dL Calcium (8.6-10.2) mg/dL Total Bilirubin (0.1-1.3) mg/dL AST (5-25) IU/L ALT (12-36) U/L Alkaline Phosphatase (56-112) IU/L Troponin I 12.4 (4.0-60.3) pg/mL C-Reactive Protein 0.8 (0.5-0.9) mg/dL NT-Pro-B Natriuret Pep 338 (<=450) pg/mL Total Protein (6.0-8.0) g/dL Albumin (3.2-4.6) g/dL Globulin g/dL Albumin/Globulin Ratio Urine Color (YELLOW) Urine Appearance (CLEAR) Urine pH (5.0-6.5) Ur Specific [place] (1.010-1.025) Urine Protein (NEGATIVE) mg/dL Urine Glucose (UA) (NORMAL) mg/dL Urine Ketones (NEGATIVE) mg/dL Urine Occult Blood (NEGATIVE) Urine Nitrite (NEGATIVE) Urine Bilirubin (NEGATIVE) Urine Urobilinogen (NEGATIVE) mg/dL Ur Leukocyte Esterase (NEGATIVE) Urine RBC (0-5) Urine WBC (0-5) Ur Squamous Epith Cells (NS,R,O) Urine Bacteria (NS) Urine Mucus (NS) 04/02/20 Range/Units 02:50 WBC (4.5-12.0) X10-3/uL RBC (4.30-5.75) x10(6)uL Hgb (13.5-17.8) g/dL Hct (30.0-51.3) % MCV (80-96) fL MCH (27.7-33.6) pg MCHC (32.2-35.4) g/dL RDW (11.5-15.5) % Plt Count (125-369) X10(3)uL MPV (7.4-10.4) fL Neut % (Auto) (46-82) % Lymph % (Auto) (13-37) % [place] % (Auto) (4-12) % Eos % (Auto) (1.0-5.0) % Baso % (Auto) (0-2) % Neut # (Auto) (1.6-8.3) # Lymph # (Auto) (0.6-5.0) # [place] # (Auto) (0.0-1.3) # Eos # (Auto) (0.0-0.8) # Baso # (Auto) (0.0-0.2) # PT (9.0-11.1) sec INR (1.00-1.24) APTT 25.0 (24.4-33.2) SECONDS D-Dimer, Quantitative (0.0-0.59) mg/LFEU Sodium (135-145) mmol/L Potassium (3.5-5.3) mmol/L Chloride (100-110) mmol/L Carbon Dioxide (21-32) mmol/L BUN (7-18) mg/dL Creatinine (0.70-1.30) mg/dL Est Cr Clr Drug Dosing mL/min Estimated GFR (MDRD) (>60) BUN/Creatinine Ratio (9-20) Glucose (80-116) mg/dL Calcium (8.6-10.2) mg/dL Total Bilirubin (0.1-1.3) mg/dL AST (5-25) IU/L ALT (12-36) U/L Alkaline Phosphatase (56-112) IU/L Troponin I (4.0-60.3) pg/mL C-Reactive Protein (0.5-0.9) mg/dL NT-Pro-B Natriuret Pep (<=450) pg/mL Total Protein (6.0-8.0) g/dL Albumin (3.2-4.6) g/dL Globulin g/dL Albumin/Globulin Ratio Urine Color (YELLOW) Urine Appearance (CLEAR) Urine pH (5.0-6.5) Ur Specific [place] (1.010-1.025) Urine Protein (NEGATIVE) mg/dL Urine Glucose (UA) (NORMAL) mg/dL Urine Ketones (NEGATIVE) mg/dL Urine Occult Blood (NEGATIVE) Urine Nitrite (NEGATIVE) Urine Bilirubin (NEGATIVE) Urine Urobilinogen (NEGATIVE) mg/dL Ur Leukocyte Esterase (NEGATIVE) Urine RBC (0-5) Urine WBC (0-5) Ur Squamous Epith Cells (NS,R,O) Urine Bacteria (NS) Urine Mucus (NS) Result Diagrams: 04/02/20 02:50 04/02/20 02:50 EKG INTERPRETATION Rhythm: NSR Sepsis Event Note - Evaluation Sepsis Screening Result: No Definite Risk - Focused Exam Vital Signs: Vital Signs Temp Pulse Resp BP Pulse Ox Pulse Ox 04/02/20 07:58 98.3 F 58 L 18 127/69 92 L 04/02/20 06:15 98.0 F 70 15 137/72 91 L 04/02/20 06:12 91 L 04/02/20 06:01 57 L 16 117/66 90 L 04/02/20 05:30 59 L 16 134/66 95 04/02/20 05:00 61 16 130/58 L 93 L 04/02/20 04:45 61 16 130/65 93 L 04/02/20 04:30 61 14 122/58 L 92 L 04/02/20 04:15 63 16 137/60 89 L 89 L 04/02/20 04:00 67 16 129/59 L 77 L 77 L 04/02/20 03:15 64 16 138/67 90 L 04/02/20 02:45 64 16 138/67 90 L 04/02/20 01:47 97.7 F 70 20 154/68 H 95 - Problem List (1) Multiple fractures of ribs of left side SNOMED Code(s): 1071833 ICD Code: S22.42XA - MULTIPLE FRACTURES OF RIBS, LEFT SIDE, INIT FOR CLOS FX Status: Acute Current Visit: Yes (2) CAD (coronary artery disease) SNOMED Code(s): 98790947 ICD Code: I25.10 - ATHSCL HEART DISEASE OF [place] CORONARY ARTERY W/O ANG PCTRS Status: Acute Current Visit: Yes Qualifiers: Coronary Disease-Associated Artery/Lesion type: bypass graft [place] vs. transplanted heart: [place] heart Associated angina: without angina Qualified Code(s): I25.810 - Atherosclerosis of coronary artery bypass graft(s) without angina pectoris (3) HTN (hypertension) SNOMED Code(s): 95969644 ICD Code: I10 - ESSENTIAL (PRIMARY) HYPERTENSION Status: Chronic Current Visit: Yes Qualifiers: Hypertension type: essential hypertension Qualified Code(s): I10 - Essential (primary) hypertension (4) DM2 (diabetes mellitus, type 2) SNOMED Code(s): 24793084 ICD Code: E11.9 - TYPE 2 DIABETES MELLITUS WITHOUT COMPLICATIONS Status: Chronic Current Visit: Yes (5) Pneumothorax, left SNOMED Code(s): 933605243 ICD Code: J93.9 - PNEUMOTHORAX, UNSPECIFIED Status: Acute Current Visit: Yes (6) Swelling of left lower extremity SNOMED Code(s): 366881953 ICD Code: M79.89 - OTHER SPECIFIED SOFT TISSUE DISORDERS Status: Acute Current Visit: Yes Problem List Initiated/Reviewed/Updated: Yes Orders Last 24hrs: Active Orders 24 hr Category Date Time Status Admission Status [Patient Status] [ADT] Routine ADT 04/02/20 05:38 Active Blood Glucose Check, Bedside [RC] QIDACANDBED Care 04/02/20 05:53 Active EKG Documentation Completion [RC] ASDIRECTED Care 04/02/20 02:38 Active EKG Documentation Completion [RC] ASDIRECTED Care 04/02/20 06:03 Active Height and Weight [RC] UPON Care 04/02/20 05:53 Active Oxygen Therapy Adult [Oxygen Therapy, ED] [RC] Care 04/02/20 04:00 Active ASDIRECTED Oxygen Therapy [RC] PRN Care 04/02/20 05:57 Active RT Incentive Spirometry [RC] Q4HWA Care 04/02/20 08:51 Ordered Up With Assistance [RC] ASDIRECTED Care 04/02/20 05:53 Active VTE/DVT Education [RC] Per Unit Routine Care 04/02/20 05:57 Active Vital Signs [RC] 08,12,16,20,00,04 Care 04/02/20 05:57 Active Consult to Granite Countertop Installer [CONS] Routine Cons 04/02/20 05:53 Active OT Evaluation and Treatment [CONS] Routine Cons 04/02/20 05:53 Active PT Evaluation and Treatment [CONS] Routine Cons 04/02/20 05:53 Active Heart Healthy Diet [DIET] Diet 04/02/20 Breakfast Active Chest 2V [CR] AM Exams 04/04/20 05:11 Ordered Chest Abdomen Pelvis w Cont [CT] Stat Exams 04/02/20 02:37 Taken VL Duplex Lwr Ext Art Ltd Lt [US] Routine Exams 04/02/20 09:00 Stop Req BASIC METABOLIC PANEL,BMP [CHEM] AM Lab 04/03/20 05:11 Ordered BASIC METABOLIC PANEL,BMP [CHEM] AM Lab 04/04/20 05:11 Ordered BASIC METABOLIC PANEL,BMP [CHEM] AM Lab 04/05/20 05:11 Ordered CBC WITH AUTO DIFF [HEME] DAILY Lab 04/03/20 06:05 Ordered CBC WITH AUTO DIFF [HEME] DAILY Lab 04/04/20 06:05 Ordered TROPONIN I [CHEM] AM Lab 04/03/20 05:11 Ordered TROPONIN I [CHEM] Routine Lab 04/03/20 06:06 Ordered Acetaminophen [TylenoL] Med 04/02/20 09:00 Active 650 mg PO QID Acetaminophen/oxyCODONE [Percocet 325-5 MG] Med 04/02/20 08:51 Ordered 1 tab PO Q4H PRN Aspirin [Halfprin] Med 04/02/20 09:00 Active 81 mg PO DAILY Clopidogrel [Plavix] Med 04/02/20 09:00 Active 75 mg PO DAILY Docusate Sodium/Sennosides [Senna Plus] Med 04/02/20 06:06 Active 1 tab PO BID PRN Dutasteride [Avodart] Med 04/02/20 09:00 Active 0.5 mg PO DAILY Enoxaparin [Lovenox] Med 04/02/20 09:00 Ordered 30 mg SUBCUT Q24H Ezetimibe [Zetia] Med 04/02/20 09:00 Pending 10 mg PO DAILY Ketorolac [Toradol] Med 04/02/20 09:00 Ordered 15 mg IVPUSH Q6H Losartan [Cozaar] Med 04/02/20 09:00 Active 50 mg PO DAILY Magnesium Hydroxide [Milk of Magnesia] Med 04/02/20 05:53 Active 30 ml PO Q12H PRN Metoprolol Tartrate [Lopressor] Med 04/02/20 09:00 Active 100 mg PO BID Ondansetron [Zofran] Med 04/02/20 05:53 Active 4 mg IV Q4H PRN Pantoprazole [ProTONIX] Med 04/02/20 07:30 Active 40 mg PO ACBREAKFAST Rosuvastatin [Crestor] Med 04/02/20 21:00 Pending 40 mg PO BEDTIME Sertraline [Zoloft] Med 04/02/20 09:00 Active 150 mg PO DAILY Sertraline [Zoloft] Med 04/02/20 21:00 Active 50 mg PO BEDTIME Sodium Chloride 0.9% [Saline Flush] Med 04/02/20 02:51 Active 10 ml FLUSH ASDIRECTED PRN Sodium Chloride 0.9% [Saline Flush] Med 04/02/20 05:53 Active 10 ml FLUSH ASDIRECTED PRN Zolpidem [Ambien] Med 04/02/20 05:53 Active 5 mg PO BEDTIME PRN amLODIPine [Norvasc] Med 04/02/20 09:00 Active 10 mg PO DAILY bisacodyL [Dulcolax] Med 04/02/20 05:53 Active 5 mg PO DAILY PRN buPROPion [Wellbutrin SR] Med 04/02/20 09:00 Active 150 mg PO DAILY fluocinolone acetonide oiL [Dermotic] Med 04/02/20 06:06 Pending 4 drop EARBOTH BID PRN hydroCHLOROthiazide Med 04/02/20 09:00 Active 12.5 mg PO DAILY oxyCODONE Med 04/02/20 05:53 Active 5 mg PO Q4H PRN Saline Lock Insert [OM.PC] Routine Oth 04/02/20 05:53 Ordered Resuscitation Status Routine Resus Stat 04/02/20 05:53 Ordered EKG 12 Lead [EK] AM Ther 04/03/20 05:11 Ordered EKG 12 Lead [EK] Routine Ther 04/02/20 02:37 Ordered Medication Orders Acetaminophen (Tylenol) 650 mg PO QID NAE Amlodipine Besylate (Norvasc) 10 mg PO DAILY NAE Aspirin (Halfprin) 81 mg PO DAILY NAE Bisacodyl (Dulcolax) 5 mg PO DAILY PRN PRN Reason: Constipation Bupropion HCl (Wellbutrin Sr) 150 mg PO DAILY NAE Clopidogrel Bisulfate (Plavix) 75 mg PO DAILY NAE Dutasteride (Avodart) 0.5 mg PO DAILY NAE Ezetimibe (Zetia) 10 mg PO DAILY [facility] Enoxaparin Sodium (Lovenox) 30 mg SUBCUT Q24H [facility] Hydrochlorothiazide (Hydrochlorothiazide) 12.5 mg PO DAILY [facility] Ketorolac Tromethamine (Toradol) 15 mg IVPUSH Q6H [facility] Stop: 04/07/20 09:01 Losartan Potassium (Cozaar) 50 mg PO DAILY [facility] Magnesium Hydroxide (Milk Of Magnesia) 30 ml PO Q12H PRN PRN Reason: Constipation Metoprolol Tartrate (Lopressor) 100 mg PO BID [facility] Non-Formulary Medication (Fluocinolone Acetonide Oil [Dermotic]) 4 drop EARBOTH BID PRN PRN Reason: Itching Non-Formulary Medication (Rosuvastatin [Crestor]) 40 mg PO BEDTIME [facility] Ondansetron HCl (Zofran) 4 mg IV Q4H PRN PRN Reason: Nausea/Vomiting Oxycodone HCl (Oxycodone) 5 mg PO Q4H PRN PRN Reason: Pain (moderate 4-6) Oxycodone/Acetaminophen (Percocet 325-5 Mg) 1 tab PO Q4H PRN PRN Reason: Breakthrough Pain Pantoprazole Sodium (Protonix) 40 mg PO ACBREAKFAST [facility] Senna/Docusate Sodium (Senna Plus) 1 tab PO BID PRN PRN Reason: Constipation Sertraline HCl (Zoloft) 150 mg PO DAILY [facility] Sertraline HCl (Zoloft) 50 mg PO BEDTIME [facility] Sodium Chloride (Saline Flush) 10 ml FLUSH ASDIRECTED PRN PRN Reason: Keep Vein Open Last Admin: 04/02/20 02:53 Dose: 10 ml Documented by: REGINA Sodium Chloride (Saline Flush) 10 ml FLUSH ASDIRECTED PRN PRN Reason: Keep Vein Open Zolpidem Tartrate (Ambien) 5 mg PO BEDTIME PRN PRN Reason: Sleep Assessment/Plan Comment:: Admit for pain control- I have chosen Toradol and Percocet. LMWH for DVT prophylaxis. IS. PT/OT.
[2020-04-02] MEDS ORDERED: Hydrochlorothiazide 12.5 MG Cap PO SCH (09:00)
[2020-04-02] MEDS ORDERED: Clopidogrel 75 MG Tab PO SCH (09:00)
[2020-04-02] MEDS ORDERED: Ezetimibe 10 MG Tab PO SCH (09:00)
[2020-04-02] MEDS: Acetaminophen 325 MG Tab PO SCH ×4 (10:18→21:20)
[2020-04-02] MEDS: Pantoprazole 40 MG Tab.CR PO SCH (10:18)
[2020-04-02] MEDS: Dutasteride 0.5 MG Cap PO SCH (10:20)
[2020-04-02] MEDS: Aspirin 81 MG Tab.EC PO SCH (10:24)
[2020-04-02] MEDS: Losartan 50 MG Tab PO SCH (10:24)
[2020-04-02] MEDS: Metoprolol Tartrate 100 MG Tab PO SCH ×2 (10:25→21:21)
[2020-04-02] MEDS: amLODIPine 10 MG Tab PO SCH (10:25)
[2020-04-02] MEDS: Sertraline 50 MG Tab PO SCH ×2 (10:26→21:20)
[2020-04-02] MEDS: buPROPion 150 MG Tab.SR PO SCH (10:27)
[2020-04-02] MEDS: Ketorolac 15 MG/ML SDV IVPUSH SCH ×3 (10:28→21:19)
--- NOTE | 2020-04-02 11:44 | CR ---
INDICATION: Followup pneumothorax visualized on CT scan of the same date. CHEST, 1 VIEW: An AP upright view of the chest, 04/02/20, was compared with CT scan of the same date and revealed multiple rib fractures posterolaterally on the left. No visible pneumothorax is identified on this examination. There is some pleural thickening at the lateral [id number] pleural space on the left compatible with pleural reaction due to the multiple rib fractures - probable minimal hemothorax. The heart is prominent in size with post median sternotomy change. Increased parenchymal density of the lung in the lower middle lung field may represent contusion. There is some blunting of the right costophrenic angle noted with some increased density there, possibly on the basis of atelectatic change. This should be correlated clinically. IMPRESSION: 1. Rib fractures and pleural reaction compatible with minimal hemothorax on the left. Possible lung contusion also at the level of the lingula and left lower lobe. 2. ASHD with mild cardiomegaly and post median sternotomy change. 3. Possible atelectatic change and possibly some minimal pleural effusion at the right lung base. MTDD
--- NOTE | 2020-04-02 13:52 | CONS ---
DATE OF CONSULTATION: 04/02/2020 HISTORY OF PRESENT ILLNESS: This 80-year-old gentleman is seen in consultation from Dr. Lei. He was admitted through the emergency room early this morning. He fell at home last evening and hit his head in the garage and also landed on his side. He did not lose consciousness, but did see stars. He was able to get into his house and sit in the recliner, but then was having too much side pain to get out of the recliner. Again, he has had no headaches, loss of consciousness, or other neurologic concerns. He was seen in the emergency room and admitted for pain control from multiple rib fractures on the left side. There is also some pleural thickening and a couple of small air bubbles along that side. The patient denies any abdominal or pelvic pain. PAST MEDICAL HISTORY: Reviewed. MEDICATIONS: Reviewed. MEDICAL ALLERGIES: Reviewed. PHYSICAL EXAMINATION: GENERAL: A pleasant gentleman in no acute distress. He is currently sitting up in bed. He is able to breathe without difficulty, but does have pain on his left side with deep breaths. He is eating well and tolerating his diet. VITAL SIGNS: Reviewed and within normal limits. HEENT: His scalp is normal, and I did not see any abrasions or bruising. NECK: Nontender. There is normal range of motion. CHEST: His left chest wall is tender laterally, but he is able to take deep breaths and does have some diminished breath sounds in the base, but otherwise clear. HEART: Regular rate and rhythm. ABDOMEN: Obese, soft, and nontender. MUSCULOSKELETAL: Pelvis, hips, shoulders, and arms all seem to be nontender with good range of motion. ASSESSMENT: 1. Fall with left rib fractures. 2. Anticoagulated. 3. Small pneumothorax only visible on CT scan. PLAN: I had Dr. Lei obtain another chest x-ray this morning which does not show any pneumothorax at this time. Because he has been on Plavix at home and now is on Lovenox, Toradol, and aspirin, I will have him obtain a CT scan of the head. He will continue to use incentive spirometry and monitor closely for any signs of respiratory problems including pneumonia. Forty minutes was spent seeing the patient and reviewing his records. /[id number] VALERIE/MERRILL
--- NOTE | 2020-04-02 16:38 | CT ---
INDICATION: Fall. CT HEAD WITHOUT CONTRAST: Spiral 3.75 mm axial sections were obtained through the brain without contrast with axial, sagittal and coronal reconstructions 04/02/20 - no comparison. Total exam DLP was 1580.01 mGy-cm. There is thickening of the lining of the right maxillary antrum and much more marked thickening of the lining of the left maxillary antrum what appears to be postsurgical change at the medial wall of the left maxillary antrum posteriorly. Thickening of the linings of multiple left-sided ethmoidal air cells is also noted. Frontal air cells show thickening of the linings also. Mastoid air cells appear to be fairly well aerated. [id number] degenerative changes are noted at the odonto-atlantian joint. No definite cranial abnormality was identified. The orbits appear to be intact. Calcifications are noted in the vertebral and internal carotid arteries. No shift of midline structures was identified. Ventricles and sulci at the left temporal lobe are prominent suggesting atrophy in those areas with a lesser degree of cortical atrophy in the right temporal area. A lacunar infarct of small size is suggested at the basal ganglia on the right and possibly a very tiny one on the left. Minimal low density abnormalities in the white matter are suggested suggesting minimal microvascular disease type changes. No evidence of a bleeding site or hematoma was identified. No other abnormal areas of density were identified. IMPRESSION: 1. No definite acute intracranial abnormality - no bleeding site or hematoma. 2. Cerebrovascular disease with arterial calcifications, central and temporal atrophy (left temporal atrophy more severe than right), lacunar infarcts at the basal ganglia, and minimal microvascular disease type changes in the white matter. 3. Change in the paranasal sinuses compatible with chronic inflammatory disease - no definite acute sinusitis - correlate clinically. Report was called to Dr. Lei at 1551 hours. [facility]
[2020-04-02] MEDS ORDERED: Non-Formulary Medication 1 Each (Rosuvastatin [Crestor] 40 MG) PO SCH (21:00)
[2020-04-02] MEDS ORDERED: Albuterol/Ipratropium 3.0-0.5 MG/3 ML Neb Soln NEB PRN (21:40)
[2020-04-03] MEDS: Ketorolac 15 MG/ML SDV IVPUSH SCH ×4 (03:42→20:34)
[2020-04-03] MEDS: Sodium Chloride 0.9% 10 ML Syringe FLUSH PRN ×4 (03:47→20:38)
--- NOTE | 2020-04-03 08:29 | PCM.PN ---
- General Info Date of Service: 04/03/20 Subjective Update: Mr. Lowery is feeling much better. Pain is sharp on movement. He still on oxygen supplementation up to 5 L. He was mildly confused overnight Functional Status: Reports: Pain Controlled, Tolerating Diet, Ambulating - Review of Systems General: Reports: No Symptoms HEENT: Reports: No Symptoms Pulmonary: Reports: Pleuritic Chest Pain Cardiovascular: Reports: No Symptoms Gastrointestinal: Reports: No Symptoms - Patient Data Vitals - Most Recent: Last Vital Signs Temp 98.6 F 04/03/20 06:26 Pulse 68 04/03/20 06:26 Resp 18 04/03/20 06:26 BP 138/60 04/03/20 06:26 Pulse Ox 90 L 04/03/20 07:17 Weight - Most Recent: 93.468 kg Lab Results Last 24 Hours: Laboratory Results - last 24 hr 04/02/20 04/02/20 04/02/20 Range/Units 08:07 13:42 17:33 WBC (4.5-12.0) X10-3/uL RBC (4.30-5.75) x10(6)uL Hgb (13.5-17.8) g/dL Hct (30.0-51.3) % MCV (80-96) fL MCH (27.7-33.6) pg MCHC (32.2-35.4) g/dL RDW (11.5-15.5) % Plt Count (125-369) X10(3)uL MPV (7.4-10.4) fL Neut % (Auto) (46-82) % Lymph % (Auto) (13-37) % [place] % (Auto) (4-12) % Eos % (Auto) (1.0-5.0) % Baso % (Auto) (0-2) % Neut # (Auto) (1.6-8.3) # Lymph # (Auto) (0.6-5.0) # [place] # (Auto) (0.0-1.3) # Eos # (Auto) (0.0-0.8) # Baso # (Auto) (0.0-0.2) # Sodium (135-145) mmol/L Potassium (3.5-5.3) mmol/L Chloride (100-110) mmol/L Carbon Dioxide (21-32) mmol/L BUN (7-18) mg/dL Creatinine (0.70-1.30) mg/dL Est Cr Clr Drug Dosing mL/min Estimated GFR (MDRD) (>60) BUN/Creatinine Ratio (9-20) Glucose (80-116) mg/dL POC Glucose 115 H 143 H 116 H (74-100) mg/dL Calcium (8.6-10.2) mg/dL Troponin I (4.0-60.3) pg/mL 04/03/20 04/03/20 04/03/20 Range/Units 05:50 05:50 05:50 WBC 12.0 (4.5-12.0) X10-3/uL RBC 4.01 L (4.30-5.75) x10(6)uL Hgb 12.0 L (13.5-17.8) g/dL Hct 37.0 (30.0-51.3) % MCV 92.2 (80-96) fL MCH 29.9 (27.7-33.6) pg MCHC 32.5 (32.2-35.4) g/dL RDW 13.2 (11.5-15.5) % Plt Count 161 (125-369) X10(3)uL MPV 7.8 (7.4-10.4) fL Neut % (Auto) 81.0 (46-82) % Lymph % (Auto) 7.1 L (13-37) % [place] % (Auto) 8.3 (4-12) % Eos % (Auto) 3 (1.0-5.0) % Baso % (Auto) 0 (0-2) % Neut # (Auto) 9.8 H (1.6-8.3) # Lymph # (Auto) 0.8 (0.6-5.0) # [place] # (Auto) 1.0 (0.0-1.3) # Eos # (Auto) 0.4 (0.0-0.8) # Baso # (Auto) 0.0 (0.0-0.2) # Sodium 140 (135-145) mmol/L Potassium 4.0 (3.5-5.3) mmol/L Chloride 104 (100-110) mmol/L Carbon Dioxide 29 (21-32) mmol/L BUN 36 H D (7-18) mg/dL Creatinine 1.7 H (0.70-1.30) mg/dL Est Cr Clr Drug Dosing 34.65 mL/min Estimated GFR (MDRD) 39 L (>60) BUN/Creatinine Ratio 21.2 H (9-20) Glucose 104 (80-116) mg/dL POC Glucose (74-100) mg/dL Calcium 8.4 L (8.6-10.2) mg/dL Troponin I 16.5 (4.0-60.3) pg/mL Med Orders - Current: Current Medications Acetaminophen (Tylenol) 650 mg PO QID [facility] Last Admin: 04/02/20 21:20 Dose: 650 mg Documented by: Albuterol/Ipratropium (Duoneb 3.0-0.5 Mg/3 Ml) 3 ml NEB Q6H PRN PRN Reason: Dyspnea Amlodipine Besylate (Norvasc) 10 mg PO DAILY [facility] [place] Last Admin: 04/02/20 10:25 Dose: 10 mg Documented by: Aspirin (Halfprin) 81 mg PO DAILY [facility] [place] Last Admin: 04/02/20 10:24 Dose: 81 mg Documented by: Bisacodyl (Dulcolax) 5 mg PO DAILY PRN PRN Reason: Constipation Bupropion HCl (Wellbutrin Sr) 150 mg PO DAILY [facility] [place] Last Admin: 04/02/20 10:27 Dose: 150 mg Documented by: Dutasteride (Avodart) 0.5 mg PO DAILY [facility] [place] Last Admin: 04/02/20 10:20 Dose: 0.5 mg Documented by: Ezetimibe (Zetia) 10 mg PO DAILY [facility] [place] Enoxaparin Sodium (Lovenox) 40 mg SUBCUT DAILY [facility] Ketorolac Tromethamine (Toradol) 15 mg IVPUSH Q6H [facility] Stop: 04/07/20 09:31 Last Admin: 04/03/20 03:42 Dose: 15 mg Documented by: Losartan Potassium (Cozaar) 50 mg PO DAILY [facility] [place] Last Admin: 04/02/20 10:24 Dose: 50 mg Documented by: Magnesium Hydroxide (Milk Of Magnesia) 30 ml PO Q12H PRN PRN Reason: Constipation Metoprolol Tartrate (Lopressor) 100 mg PO BID [facility] [place] Last Admin: 04/02/20 21:21 Dose: 100 mg Documented by: Non-Formulary Medication (Rosuvastatin [Crestor]) 40 mg PO BEDTIME [facility] [place] Ondansetron HCl (Zofran) 4 mg IV Q4H PRN PRN Reason: Nausea/Vomiting Last Admin: 04/03/20 03:45 Dose: 4 mg Documented by: Oxycodone HCl (Oxycodone) 5 mg PO Q4H PRN PRN Reason: Pain (moderate 4-6) Oxycodone/Acetaminophen (Percocet 325-5 Mg) 1 tab PO Q4H PRN PRN Reason: Breakthrough Pain Last Admin: 04/03/20 06:00 Dose: 1 tab Documented by: Pantoprazole Sodium (Protonix) 40 mg PO ACBREAKFAST [facility] [place] Last Admin: 04/02/20 10:18 Dose: 40 mg Documented by: Senna/Docusate Sodium (Senna Plus) 1 tab PO BID PRN PRN Reason: Constipation Sertraline HCl (Zoloft) 150 mg PO DAILY [facility] [place] Last Admin: 04/02/20 10:26 Dose: 150 mg Documented by: Sertraline HCl (Zoloft) 50 mg PO BEDTIME [facility] [place] Last Admin: 04/02/20 21:20 Dose: 50 mg Documented by: Sodium Chloride (Saline Flush) 10 ml FLUSH ASDIRECTED PRN PRN Reason: Keep Vein Open Last Admin: 04/03/20 03:47 Dose: 10 ml Documented by: Sodium Chloride (Saline Flush) 10 ml FLUSH ASDIRECTED PRN PRN Reason: Keep Vein Open Zolpidem Tartrate (Ambien) 5 mg PO BEDTIME PRN PRN Reason: Sleep Discontinued Medications Clopidogrel Bisulfate (Plavix) 75 mg PO DAILY [facility] [place] Last Admin: 04/02/20 10:23 Dose: 75 mg Documented by: Diphtheria/Tetanus/Acell Pertussis (Adacel) 0.5 ml IM .ONCE ONE Stop: 04/02/20 02:42 Last Admin: 04/02/20 02:56 Dose: 0.5 ml Documented by: Enoxaparin Sodium (Lovenox) 100 mg SUBCUT ONETIME ONE Stop: 04/02/20 05:54 Last Admin: 04/02/20 07:56 Dose: 100 mg Documented by: Hydrochlorothiazide (Hydrochlorothiazide) 12.5 mg PO DAILY [facility] [place] Last Admin: 04/02/20 10:22 Dose: 12.5 mg Documented by: Hydromorphone HCl (Dilaudid) 2 mg IVPUSH ONETIME ONE Stop: 04/02/20 02:38 Last Admin: 04/02/20 02:54 Dose: 2 mg Documented by: Hydromorphone HCl (Dilaudid) 0.5 mg IVPUSH Q2H PRN PRN Reason: Pain (severe 7-10) Iopamidol (Isovue-370 (76%)) 100 ml IV . DIRECTED ONE Stop: 04/02/20 03:39 Last Admin: 04/02/20 04:02 Dose: 100 ml Documented by: Non-Formulary Medication (Fluocinolone Acetonide Oil [Dermotic]) 4 drop EARBOTH BID PRN PRN Reason: Itching Ondansetron HCl (Zofran) 4 mg IVPUSH ONETIME ONE Stop: 04/02/20 02:38 Last Admin: 04/02/20 02:50 Dose: 4 mg Documented by: - Exam Quality Assessment: Supplemental Oxygen General: Alert, Oriented HEENT: Pupils Equal Neck: Supple Lungs: Clear to Auscultation Cardiovascular: Regular Rate Sepsis Event Note - Evaluation Sepsis Screening Result: No Definite Risk - Focused Exam Vital Signs: Vital Signs Temp Pulse Pulse Resp BP BP Pulse Ox 04/03/20 07:17 04/03/20 06:26 98.6 F 68 18 138/60 84 L 04/03/20 00:00 98 F 55 L 14 137/64 95 04/02/20 21:41 04/02/20 21:21 55 L 111/64 04/02/20 21:18 55 L 88 L 04/02/20 20:30 98.7 F 54 L 15 111/63 88 L Pulse Ox 04/03/20 07:17 90 L 04/03/20 06:26 04/03/20 00:00 04/02/20 21:41 85 L 04/02/20 21:21 04/02/20 21:18 04/02/20 20:30 - Problem List & Annotations (1) Multiple fractures of ribs of left side SNOMED Code(s): 8354621 Code(s): S22.42XA - MULTIPLE FRACTURES OF RIBS, LEFT SIDE, INIT FOR CLOS FX Status: Acute Current Visit: Yes Qualifiers: Encounter type: subsequent encounter (2) CAD (coronary artery disease) SNOMED Code(s): 02844645 Code(s): I25.10 - ATHSCL HEART DISEASE OF [place] CORONARY ARTERY W/O ANG PCTRS Status: Acute Current Visit: Yes Qualifiers: Coronary Disease-Associated Artery/Lesion type: bypass graft [place] vs. transplanted heart: [place] heart Associated angina: without angina Qualified Code(s): I25.810 - Atherosclerosis of coronary artery bypass graft(s) without angina pectoris (3) HTN (hypertension) SNOMED Code(s): 49825442 Code(s): I10 - ESSENTIAL (PRIMARY) HYPERTENSION Status: Chronic Current Visit: Yes Qualifiers: Hypertension type: essential hypertension Qualified Code(s): I10 - Essential (primary) hypertension (4) DM2 (diabetes mellitus, type 2) SNOMED Code(s): 61659919 Code(s): E11.9 - TYPE 2 DIABETES MELLITUS WITHOUT COMPLICATIONS Status: Chronic Current Visit: Yes Qualifiers: Diabetes mellitus termite control representative insulin use: without termite control representative use (5) Pneumothorax, left SNOMED Code(s): 622550675 Code(s): J93.9 - PNEUMOTHORAX, UNSPECIFIED Status: Acute Current Visit: Yes (6) Swelling of left lower extremity SNOMED Code(s): 004540537 Code(s): M79.89 - OTHER SPECIFIED SOFT TISSUE DISORDERS Status: Acute Current Visit: Yes (7) Delirium SNOMED Code(s): 8240791 Code(s): R41.0 - DISORIENTATION, UNSPECIFIED Status: Acute Current Visit: Yes (8) EVAN (acute kidney injury) SNOMED Code(s): 02849745, 20968046 Code(s): N17.9 - ACUTE KIDNEY FAILURE, UNSPECIFIED Status: Acute Current Visit: Yes - Problem List Review Problem List Initiated/Reviewed/Updated: Yes - My Orders Last 24 Hours: My Active Orders 04/02/20 08:51 RT Incentive Spirometry [RC] Q4HWA Acetaminophen/oxyCODONE [Percocet 325-5 MG] 1 tab PO Q4H PRN 04/02/20 09:30 Ketorolac [Toradol] 15 mg IVPUSH Q6H 04/02/20 09:50 Notify Provider Consults [RC] ASDIRECTED Consult to Physician [CONS] Urgent 04/03/20 09:00 Enoxaparin [Lovenox] 40 mg SUBCUT DAILY - Plan Plan:: I appreciate Dr. Avendaño input. CT of the head was essentially negative. I stopped Plavix. We'll continue with the current pain control oxygen supplementation. Physical therapy to see him..
[2020-04-03] MEDS: Sertraline 50 MG Tab PO SCH ×2 (08:30→20:28)
[2020-04-03] MEDS: Pantoprazole 40 MG Tab.CR PO SCH (08:30)
[2020-04-03] MEDS: Dutasteride 0.5 MG Cap PO SCH (08:31)
[2020-04-03] MEDS: Losartan 50 MG Tab PO SCH (08:32)
[2020-04-03] MEDS: amLODIPine 10 MG Tab PO SCH (08:32)
[2020-04-03] MEDS: Acetaminophen 325 MG Tab PO SCH ×4 (08:33→20:29)
[2020-04-03] MEDS: buPROPion 150 MG Tab.SR PO SCH (08:35)
[2020-04-03] MEDS: Aspirin 81 MG Tab.EC PO SCH (08:35)
[2020-04-03] MEDS: Metoprolol Tartrate 100 MG Tab PO SCH ×2 (08:35→20:28)
[2020-04-03] MEDS: Enoxaparin 40 MG/0.4 ML Syringe SUBCUT SCH (08:58)
[2020-04-03] MEDS: Carboxymethylcellulose Sodium 0.5% Ophth Soln 15 ML Bottle EYEBOTH SCH ×3 (08:58→20:28)
[2020-04-04] MEDS: Ketorolac 15 MG/ML SDV IVPUSH SCH ×4 (02:39→20:30)
[2020-04-04] MEDS: Sodium Chloride 0.9% 10 ML Syringe FLUSH PRN ×3 (02:40→20:32)
[2020-04-04] MEDS: Pantoprazole 40 MG Tab.CR PO SCH (06:48)
[2020-04-04] MEDS: Carboxymethylcellulose Sodium 0.5% Ophth Soln 15 ML Bottle EYEBOTH SCH ×4 (08:30→20:20)
[2020-04-04] MEDS ORDERED: Polyethylene Glycol 3350 Powder 17 GM Packet PO ONE (08:31)
[2020-04-04] MEDS: Losartan 50 MG Tab PO SCH (08:38)
[2020-04-04] MEDS: Dutasteride 0.5 MG Cap PO SCH (08:38)
[2020-04-04] MEDS: Enoxaparin 40 MG/0.4 ML Syringe SUBCUT SCH (08:39)
[2020-04-04] MEDS: Aspirin 81 MG Tab.EC PO SCH (08:39)
[2020-04-04] MEDS: amLODIPine 10 MG Tab PO SCH (08:39)
[2020-04-04] MEDS: Metoprolol Tartrate 100 MG Tab PO SCH ×2 (08:39→20:20)
--- NOTE | 2020-04-04 08:39 | PCM.PN ---
- General Info Date of Service: 04/04/20 Subjective Update: Erika continues to need 5 L of oxygenation. Pain is stable as long as he does not move. This morning he complains of nausea/ gagging/dry heaving. He also complains of constipation 2 days. He denies fever or chills. Functional Status: Reports: Tolerating Diet, Ambulating, Incentive Spirometry - Review of Systems General: Reports: No Symptoms HEENT: Reports: No Symptoms Pulmonary: Reports: Shortness of Breath, Pleuritic Chest Pain Cardiovascular: Reports: No Symptoms Gastrointestinal: Reports: Constipation, Nausea Genitourinary: Reports: No Symptoms Musculoskeletal: Reports: No Symptoms - Patient Data Vitals - Most Recent: Last Vital Signs Temp 97.7 F 04/04/20 04:00 Pulse 64 04/04/20 04:00 Resp 20 04/04/20 04:00 BP 141/61 H 04/04/20 04:00 Pulse Ox 85 L 04/04/20 04:00 Weight - Most Recent: 93.468 kg Lab Results Last 24 Hours: Laboratory Results - last 24 hr 04/02/20 04/03/20 04/03/20 Range/Units 20:31 11:12 20:32 WBC (4.5-12.0) X10-3/uL RBC (4.30-5.75) x10(6)uL Hgb (13.5-17.8) g/dL Hct (30.0-51.3) % MCV (80-96) fL MCH (27.7-33.6) pg MCHC (32.2-35.4) g/dL RDW (11.5-15.5) % Plt Count (125-369) X10(3)uL MPV (7.4-10.4) fL Neut % (Auto) (46-82) % Lymph % (Auto) (13-37) % [place] % (Auto) (4-12) % Eos % (Auto) (1.0-5.0) % Baso % (Auto) (0-2) % Neut # (Auto) (1.6-8.3) # Lymph # (Auto) (0.6-5.0) # [place] # (Auto) (0.0-1.3) # Eos # (Auto) (0.0-0.8) # Baso # (Auto) (0.0-0.2) # Sodium (135-145) mmol/L Potassium (3.5-5.3) mmol/L Chloride (100-110) mmol/L Carbon Dioxide (21-32) mmol/L BUN (7-18) mg/dL Creatinine (0.70-1.30) mg/dL Est Cr Clr Drug Dosing mL/min Estimated GFR (MDRD) (>60) BUN/Creatinine Ratio (9-20) Glucose (80-116) mg/dL POC Glucose 146 H 163 H 135 H (74-100) mg/dL Calcium (8.6-10.2) mg/dL 04/04/20 04/04/20 04/04/20 Range/Units 05:38 06:30 06:30 WBC 13.3 H (4.5-12.0) X10-3/uL RBC 4.03 L (4.30-5.75) x10(6)uL Hgb 12.1 L (13.5-17.8) g/dL Hct 37.4 (30.0-51.3) % MCV 92.7 (80-96) fL MCH 30.0 (27.7-33.6) pg MCHC 32.4 (32.2-35.4) g/dL RDW 13.0 (11.5-15.5) % Plt Count 162 (125-369) X10(3)uL MPV 8.0 (7.4-10.4) fL Neut % (Auto) 77.6 (46-82) % Lymph % (Auto) 8.2 L (13-37) % [place] % (Auto) 11.9 (4-12) % Eos % (Auto) 2 (1.0-5.0) % Baso % (Auto) 0 (0-2) % Neut # (Auto) 10.3 H (1.6-8.3) # Lymph # (Auto) 1.1 (0.6-5.0) # [place] # (Auto) 1.6 H (0.0-1.3) # Eos # (Auto) 0.3 (0.0-0.8) # Baso # (Auto) 0.0 (0.0-0.2) # Sodium 137 (135-145) mmol/L Potassium 4.4 (3.5-5.3) mmol/L Chloride 100 (100-110) mmol/L Carbon Dioxide 28 (21-32) mmol/L BUN 42 H (7-18) mg/dL Creatinine 1.7 H (0.70-1.30) mg/dL Est Cr Clr Drug Dosing 34.65 mL/min Estimated GFR (MDRD) 39 L (>60) BUN/Creatinine Ratio 24.7 H (9-20) Glucose 126 H (80-116) mg/dL POC Glucose 134 H (74-100) mg/dL Calcium 8.6 (8.6-10.2) mg/dL Med Orders - Current: Current Medications Acetaminophen (Tylenol) 650 mg PO QID [facility] Last Admin: 04/03/20 20:29 Dose: 650 mg Documented by: Albuterol (Proventil Neb Soln) 2.5 mg NEB BID [facility] Albuterol/Ipratropium (Duoneb 3.0-0.5 Mg/3 Ml) 3 ml NEB Q6H PRN PRN Reason: Dyspnea Last Admin: 04/02/20 23:00 Dose: 3 ml Documented by: Amlodipine Besylate (Norvasc) 10 mg PO DAILY [facility] Last Admin: 04/03/20 08:32 Dose: 10 mg Documented by: Artificial Tears (Refresh Tears 0.5%) 0 ml EYEBOTH TID [facility] Last Admin: 04/03/20 20:28 Dose: 2 drop Documented by: Aspirin (Halfprin) 81 mg PO DAILY [facility] Last Admin: 04/03/20 08:35 Dose: 81 mg Documented by: Bisacodyl (Dulcolax) 5 mg PO DAILY PRN PRN Reason: Constipation Bupropion HCl (Wellbutrin Sr) 150 mg PO DAILY [facility] Last Admin: 04/03/20 08:35 Dose: 150 mg Documented by: Dutasteride (Avodart) 0.5 mg PO DAILY [facility] Last Admin: 04/03/20 08:31 Dose: 0.5 mg Documented by: Ezetimibe (Zetia) 10 mg PO DAILY [facility] Enoxaparin Sodium (Lovenox) 40 mg SUBCUT DAILY [facility] Last Admin: 04/03/20 08:58 Dose: 40 mg Documented by: Ketorolac Tromethamine (Toradol) 15 mg IVPUSH Q6H [facility] Stop: 04/07/20 09:31 Last Admin: 04/04/20 02:39 Dose: 15 mg Documented by: Losartan Potassium (Cozaar) 50 mg PO DAILY [facility] Last Admin: 04/03/20 08:32 Dose: 50 mg Documented by: Magnesium Hydroxide (Milk Of Magnesia) 30 ml PO Q12H PRN PRN Reason: Constipation Metoprolol Tartrate (Lopressor) 100 mg PO BID [facility] Last Admin: 04/03/20 20:28 Dose: 100 mg Documented by: Non-Formulary Medication (Rosuvastatin [Crestor]) 40 mg PO BEDTIME [facility] Ondansetron HCl (Zofran) 4 mg IV Q4H PRN PRN Reason: Nausea/Vomiting Last Admin: 04/03/20 03:45 Dose: 4 mg Documented by: Oxycodone HCl (Oxycodone) 5 mg PO Q4H PRN PRN Reason: Pain (moderate 4-6) Oxycodone/Acetaminophen (Percocet 325-5 Mg) 1 tab PO Q4H PRN PRN Reason: Breakthrough Pain Last Admin: 04/03/20 06:00 Dose: 1 tab Documented by: Pantoprazole Sodium (Protonix) 40 mg PO ACBREAKFAST [facility] Last Admin: 04/04/20 06:48 Dose: 40 mg Documented by: Polyethylene Glycol (Miralax) 17 gm PO ONETIME ONE Stop: 04/04/20 08:32 Senna/Docusate Sodium (Senna Plus) 1 tab PO BID PRN PRN Reason: Constipation Sertraline HCl (Zoloft) 150 mg PO DAILY [facility] Last Admin: 04/03/20 08:30 Dose: 150 mg Documented by: Sertraline HCl (Zoloft) 50 mg PO BEDTIME [facility] Last Admin: 04/03/20 20:28 Dose: 50 mg Documented by: Sodium Chloride (Saline Flush) 10 ml FLUSH ASDIRECTED PRN PRN Reason: Keep Vein Open Last Admin: 04/04/20 02:40 Dose: 10 ml Documented by: Sodium Chloride (Saline Flush) 10 ml FLUSH ASDIRECTED PRN PRN Reason: Keep Vein Open Zolpidem Tartrate (Ambien) 5 mg PO BEDTIME PRN PRN Reason: Sleep Discontinued Medications Clopidogrel Bisulfate (Plavix) 75 mg PO DAILY [facility] Last Admin: 04/02/20 10:23 Dose: 75 mg Documented by: Diphtheria/Tetanus/Acell Pertussis (Adacel) 0.5 ml IM .ONCE ONE Stop: 04/02/20 02:42 Last Admin: 04/02/20 02:56 Dose: 0.5 ml Documented by: Enoxaparin Sodium (Lovenox) 100 mg SUBCUT ONETIME ONE Stop: 04/02/20 05:54 Last Admin: 04/02/20 07:56 Dose: 100 mg Documented by: Hydrochlorothiazide (Hydrochlorothiazide) 12.5 mg PO DAILY [facility] Last Admin: 04/02/20 10:22 Dose: 12.5 mg Documented by: Hydromorphone HCl (Dilaudid) 2 mg IVPUSH ONETIME ONE Stop: 04/02/20 02:38 Last Admin: 04/02/20 02:54 Dose: 2 mg Documented by: Hydromorphone HCl (Dilaudid) 0.5 mg IVPUSH Q2H PRN PRN Reason: Pain (severe 7-10) Iopamidol (Isovue-370 (76%)) 100 ml IV . DIRECTED ONE Stop: 04/02/20 03:39 Last Admin: 04/02/20 04:02 Dose: 100 ml Documented by: Non-Formulary Medication (Fluocinolone Acetonide Oil [Dermotic]) 4 drop EARBOTH BID PRN PRN Reason: Itching Ondansetron HCl (Zofran) 4 mg IVPUSH ONETIME ONE Stop: 04/02/20 02:38 Last Admin: 04/02/20 02:50 Dose: 4 mg Documented by: - Exam Quality Assessment: Supplemental Oxygen General: Alert, Oriented HEENT: Pupils Equal Neck: Supple Lungs: Crackles Cardiovascular: Regular Rate GI/Abdominal Exam: Soft, Distended Extremities: Normal Inspection Skin: Warm, Dry Sepsis Event Note - Evaluation Sepsis Screening Result: No Definite Risk - Focused Exam Vital Signs: Vital Signs Temp Pulse Resp BP Pulse Ox 04/04/20 04:00 97.7 F 64 20 141/61 H 85 L 04/04/20 00:00 97.6 F 60 18 131/56 L 86 L - Problem List & Annotations (1) Multiple fractures of ribs of left side SNOMED Code(s): 6361495 Code(s): S22.42XA - MULTIPLE FRACTURES OF RIBS, LEFT SIDE, INIT FOR CLOS FX Status: Acute Current Visit: Yes Qualifiers: Encounter type: subsequent encounter (2) CAD (coronary artery disease) SNOMED Code(s): 53416700 Code(s): I25.10 - ATHSCL HEART DISEASE OF [place] CORONARY ARTERY W/O ANG PCTRS Status: Acute Current Visit: Yes Qualifiers: Coronary Disease-Associated Artery/Lesion type: bypass graft [place] vs. transplanted heart: [place] heart Associated angina: without angina Qualified Code(s): I25.810 - Atherosclerosis of coronary artery bypass graft(s) without angina pectoris (3) HTN (hypertension) SNOMED Code(s): 11649977 Code(s): I10 - ESSENTIAL (PRIMARY) HYPERTENSION Status: Chronic Current Visit: Yes Qualifiers: Hypertension type: essential hypertension Qualified Code(s): I10 - Essential (primary) hypertension (4) DM2 (diabetes mellitus, type 2) SNOMED Code(s): 61201350 Code(s): E11.9 - TYPE 2 DIABETES MELLITUS WITHOUT COMPLICATIONS Status: Chronic Current Visit: Yes Qualifiers: Diabetes mellitus machine long goods helper insulin use: without machine long goods helper use (5) Pneumothorax, left SNOMED Code(s): 488871327 Code(s): J93.9 - PNEUMOTHORAX, UNSPECIFIED Status: Acute Current Visit: Yes (6) Swelling of left lower extremity SNOMED Code(s): 398487208 Code(s): M79.89 - OTHER SPECIFIED SOFT TISSUE DISORDERS Status: Acute Current Visit: Yes (7) Delirium SNOMED Code(s): 3545349 Code(s): R41.0 - DISORIENTATION, UNSPECIFIED Status: Acute Current Visit: Yes (8) EVAN (acute kidney injury) SNOMED Code(s): 86185213, 95074301 Code(s): N17.9 - ACUTE KIDNEY FAILURE, UNSPECIFIED Status: Acute Current Visit: Yes (9) Constipation SNOMED Code(s): 00874086 Code(s): K59.00 - CONSTIPATION, UNSPECIFIED Status: Acute Current Visit: Yes Qualifiers: Constipation type: drug induced constipation Qualified Code(s): K59.03 - Drug induced constipation - Problem List Review Problem List Initiated/Reviewed/Updated: Yes - My Orders Last 24 Hours: My Active Orders 04/03/20 09:00 Carboxymethylcellulose Sodium [Refresh Tears 0.5%] 0 ml EYEBOTH TID Enoxaparin [Lovenox] 40 mg SUBCUT DAILY 04/04/20 08:31 Abdomen 2V AP Flat Upright [CR] Urgent CORONAVIRUS COVID-19, AN Urgent polyethylene glycoL 3350 [MiraLAX] 17 gm PO ONETIME ONE 04/04/20 08:32 RT Aerosol Therapy [RC] ASDIRECTED 04/04/20 09:00 Albuterol [Proventil Neb Soln] 2.5 mg NEB BID 04/05/20 05:11 CBC WITH AUTO DIFF [HEME] AM - Plan Plan:: I will obtain a chest and flat and upright x-ray this morning. I've given some MiraLAX, Zofran try nebulizer for his hypoxia. I called Lanette is and updated of the progress
[2020-04-04] MEDS: Sertraline 50 MG Tab PO SCH ×2 (08:40→20:19)
[2020-04-04] MEDS: Acetaminophen 325 MG Tab PO SCH ×4 (08:40→20:19)
[2020-04-04] MEDS: buPROPion 150 MG Tab.SR PO SCH (08:40)
[2020-04-04] MEDS: Albuterol 0.083% 2.5 MG/3 ML Neb Soln NEB SCH ×2 (10:51→20:23)
--- NOTE | 2020-04-04 17:06 | CR ---
INDICATION: Followup left pneumothorax. CHEST TWO VIEWS: PA and lateral views of the chest 04/04/20 were compared with 04/02/20 and now definitely reveals blunting of the right costophrenic angle with parenchymal changes at the left lung base again noted. Findings may represent bibasilar pneumonia and pleuritis, but should be correlated clinically. Little interval change was suggested. MTDD
--- NOTE | 2020-04-04 17:13 | CR ---
INDICATION: Constipation. ABDOMEN: Four images of the abdomen in supine and upright projections obtained 04/04/20 - and compared with 04/02/20 CT chest, abdomen and pelvis. Pleuroparenchymal changes at both lung bases are compatible with pneumonia and pleuritis and possibly some atelectatic change. The pattern of gas and feces is nonspecific without evidence of free air or definite obstructive process. Less stool appears to be present in the colon. No definite mass lesions, organomegaly, or nonvascular pathologic calcifications were identified. Calcifications are noted in the abdominal aorta and iliac, as well as femoral arteries. Surgery is noted in the left inguinal area. Hypertrophic degenerative changes are noted in the spine. IMPRESSION: 1. Nonacute abdomen. 2. Bibasilar pleuroparenchymal changes. MTDD
[2020-04-05] MEDS: Ketorolac 15 MG/ML SDV IVPUSH SCH (03:01)
[2020-04-05] MEDS: Sodium Chloride 0.9% 10 ML Syringe FLUSH PRN (03:06)
[2020-04-05] MEDS: Pantoprazole 40 MG Tab.CR PO SCH ×2 (05:12→06:32)
--- NOTE | 2020-04-05 08:01 | PCM.PN ---
- General Info Date of Service: 04/05/20 Admission Dx/Problem (Free Text): Patient states that he is a little bit more comfortable yesterday than he has been. This morning he having left rib pain. He denies any shortness of breath. He says sometimes he is little confused when he stuck and people on the phone. Rolling over moving his makes his ribs hurt more. - Patient Data Vitals - Most Recent: Last Vital Signs Temp 98.3 F 04/05/20 04:00 Pulse 67 04/05/20 04:00 Resp 20 04/05/20 05:00 BP 157/72 H 04/05/20 04:00 Pulse Ox 91 L 04/05/20 05:00 Weight - Most Recent: 206 lb 1 oz Lab Results Last 24 Hours: Laboratory Results - last 24 hr 04/04/20 04/04/20 04/04/20 Range/Units 09:15 17:29 20:05 WBC (4.5-12.0) X10-3/uL RBC (4.30-5.75) x10(6)uL Hgb (13.5-17.8) g/dL Hct (30.0-51.3) % MCV (80-96) fL MCH (27.7-33.6) pg MCHC (32.2-35.4) g/dL RDW (11.5-15.5) % Plt Count (125-369) X10(3)uL MPV (7.4-10.4) fL Neut % (Auto) (46-82) % Lymph % (Auto) (13-37) % Stephens % (Auto) (4-12) % Eos % (Auto) (1.0-5.0) % Baso % (Auto) (0-2) % Neut # (Auto) (1.6-8.3) # Lymph # (Auto) (0.6-5.0) # Stephens # (Auto) (0.0-1.3) # Eos # (Auto) (0.0-0.8) # Baso # (Auto) (0.0-0.2) # Sodium (135-145) mmol/L Potassium (3.5-5.3) mmol/L Chloride (100-110) mmol/L Carbon Dioxide (21-32) mmol/L BUN (7-18) mg/dL Creatinine (0.70-1.30) mg/dL Est Cr Clr Drug Dosing mL/min Estimated GFR (MDRD) (>60) BUN/Creatinine Ratio (9-20) Glucose (80-116) mg/dL POC Glucose 126 H 145 H (74-100) mg/dL Calcium (8.6-10.2) mg/dL SARS Virus RNA (PCR) Negative (NEGATIVE) 04/05/20 04/05/20 Range/Units 06:20 06:20 WBC 10.2 (4.5-12.0) X10-3/uL RBC 3.76 L (4.30-5.75) x10(6)uL Hgb 11.6 L (13.5-17.8) g/dL Hct 34.5 (30.0-51.3) % MCV 91.6 (80-96) fL MCH 30.7 (27.7-33.6) pg MCHC 33.5 (32.2-35.4) g/dL RDW 13.1 (11.5-15.5) % Plt Count 170 (125-369) X10(3)uL MPV 7.9 (7.4-10.4) fL Neut % (Auto) 79.2 (46-82) % Lymph % (Auto) 7.2 L (13-37) % Stephens % (Auto) 11.2 (4-12) % Eos % (Auto) 2 (1.0-5.0) % Baso % (Auto) 0 (0-2) % Neut # (Auto) 8.2 (1.6-8.3) # Lymph # (Auto) 0.7 (0.6-5.0) # Stephens # (Auto) 1.1 (0.0-1.3) # Eos # (Auto) 0.2 (0.0-0.8) # Baso # (Auto) 0.0 (0.0-0.2) # Sodium 140 (135-145) mmol/L Potassium 4.2 (3.5-5.3) mmol/L Chloride 102 (100-110) mmol/L Carbon Dioxide 31 (21-32) mmol/L BUN 38 H (7-18) mg/dL Creatinine 1.5 H (0.70-1.30) mg/dL Est Cr Clr Drug Dosing 39.27 mL/min Estimated GFR (MDRD) 45 L (>60) BUN/Creatinine Ratio 25.3 H (9-20) Glucose 123 H (80-116) mg/dL POC Glucose (74-100) mg/dL Calcium 8.4 L (8.6-10.2) mg/dL SARS Virus RNA (PCR) (NEGATIVE) Med Orders - Current: Current Medications Albuterol (Proventil Neb Soln) 2.5 mg NEB BID [facility] Last Admin: 04/04/20 20:23 Dose: 2.5 mg Documented by: Albuterol/Ipratropium (Duoneb 3.0-0.5 Mg/3 Ml) 3 ml NEB Q6H PRN PRN Reason: Dyspnea Last Admin: 04/02/20 23:00 Dose: 3 ml Documented by: Amlodipine Besylate (Norvasc) 10 mg PO DAILY [facility] Last Admin: 04/04/20 08:39 Dose: 10 mg Documented by: Artificial Tears (Refresh Tears 0.5%) 0 ml EYEBOTH TID [facility] Last Admin: 04/04/20 20:20 Dose: 2 drop Documented by: Aspirin (Halfprin) 81 mg PO DAILY [facility] Last Admin: 04/04/20 08:39 Dose: 81 mg Documented by: Bisacodyl (Dulcolax) 5 mg PO DAILY PRN PRN Reason: Constipation Last Admin: 04/05/20 03:09 Dose: 5 mg Documented by: Bupropion HCl (Wellbutrin Sr) 150 mg PO DAILY [facility] Last Admin: 04/04/20 08:40 Dose: 150 mg Documented by: Dutasteride (Avodart) 0.5 mg PO DAILY [facility] Last Admin: 04/04/20 08:38 Dose: 0.5 mg Documented by: Ezetimibe (Zetia) 10 mg PO DAILY [facility] Enoxaparin Sodium (Lovenox) 40 mg SUBCUT DAILY [facility] Last Admin: 04/04/20 08:39 Dose: 40 mg Documented by: Ketorolac Tromethamine (Toradol) 15 mg IVPUSH Q6H [facility] Stop: 04/07/20 09:31 Last Admin: 04/05/20 03:01 Dose: 15 mg Documented by: Losartan Potassium (Cozaar) 50 mg PO DAILY [facility] Last Admin: 04/04/20 08:38 Dose: 50 mg Documented by: Magnesium Hydroxide (Milk Of Magnesia) 30 ml PO Q12H PRN PRN Reason: Constipation Last Admin: 04/05/20 03:09 Dose: 30 ml Documented by: Metoprolol Tartrate (Lopressor) 100 mg PO BID [facility] Last Admin: 04/04/20 20:20 Dose: 100 mg Documented by: Non-Formulary Medication (Rosuvastatin [Crestor]) 40 mg PO BEDTIME [facility] Ondansetron HCl (Zofran) 4 mg IV Q4H PRN PRN Reason: Nausea/Vomiting Last Admin: 04/03/20 03:45 Dose: 4 mg Documented by: Pantoprazole Sodium (Protonix) 40 mg PO ACBREAKFAST [facility] Last Admin: 04/05/20 06:32 Dose: Not Given Documented by: Senna/Docusate Sodium (Senna Plus) 1 tab PO BID PRN PRN Reason: Constipation Last Admin: 04/04/20 16:49 Dose: 1 tab Documented by: Sertraline HCl (Zoloft) 150 mg PO DAILY [facility] Last Admin: 04/04/20 08:40 Dose: 150 mg Documented by: Sertraline HCl (Zoloft) 50 mg PO BEDTIME [facility] Last Admin: 04/04/20 20:19 Dose: 50 mg Documented by: Sodium Chloride (Saline Flush) 10 ml FLUSH ASDIRECTED PRN PRN Reason: Keep Vein Open Last Admin: 04/05/20 03:06 Dose: 10 ml Documented by: Sodium Chloride (Saline Flush) 10 ml FLUSH ASDIRECTED PRN PRN Reason: Keep Vein Open Zolpidem Tartrate (Ambien) 5 mg PO BEDTIME PRN PRN Reason: Sleep Last Admin: 04/04/20 22:45 Dose: 5 mg Documented by: Discontinued Medications Acetaminophen (Tylenol) 650 mg PO QID [facility] Last Admin: 04/04/20 20:19 Dose: 650 mg Documented by: Clopidogrel Bisulfate (Plavix) 75 mg PO DAILY [facility] Last Admin: 04/02/20 10:23 Dose: 75 mg Documented by: Diphtheria/Tetanus/Acell Pertussis (Adacel) 0.5 ml IM .ONCE ONE Stop: 04/02/20 02:42 Last Admin: 04/02/20 02:56 Dose: 0.5 ml Documented by: Enoxaparin Sodium (Lovenox) 100 mg SUBCUT ONETIME ONE Stop: 04/02/20 05:54 Last Admin: 04/02/20 07:56 Dose: 100 mg Documented by: Hydrochlorothiazide (Hydrochlorothiazide) 12.5 mg PO DAILY [facility] Last Admin: 04/02/20 10:22 Dose: 12.5 mg Documented by: Hydromorphone HCl (Dilaudid) 2 mg IVPUSH ONETIME ONE Stop: 04/02/20 02:38 Last Admin: 04/02/20 02:54 Dose: 2 mg Documented by: Hydromorphone HCl (Dilaudid) 0.5 mg IVPUSH Q2H PRN PRN Reason: Pain (severe 7-10) Iopamidol (Isovue-370 (76%)) 100 ml IV . DIRECTED ONE Stop: 04/02/20 03:39 Last Admin: 04/02/20 04:02 Dose: 100 ml Documented by: Non-Formulary Medication (Fluocinolone Acetonide Oil [Dermotic]) 4 drop EARBOTH BID PRN PRN Reason: Itching Ondansetron HCl (Zofran) 4 mg IVPUSH ONETIME ONE Stop: 04/02/20 02:38 Last Admin: 04/02/20 02:50 Dose: 4 mg Documented by: Oxycodone HCl (Oxycodone) 5 mg PO Q4H PRN PRN Reason: Pain (moderate 4-6) Oxycodone/Acetaminophen (Percocet 325-5 Mg) 1 tab PO Q4H PRN PRN Reason: Breakthrough Pain Last Admin: 04/03/20 06:00 Dose: 1 tab Documented by: Polyethylene Glycol (Miralax) 17 gm PO ONETIME ONE Stop: 04/04/20 08:32 Last Admin: 04/04/20 09:13 Dose: 17 gm Documented by: - Exam General: Alert, Oriented, Cooperative Lungs: Clear to Auscultation, Normal Respiratory Effort. No: Decreased Breath S ounds, Crackles, Rales Extremities: No Pedal Edema Sepsis Event Note - Evaluation Sepsis Screening Result: No Definite Risk - Focused Exam Vital Signs: Vital Signs Temp Pulse Pulse Resp BP BP Pulse Ox 04/05/20 05:00 20 91 L 04/05/20 04:00 98.3 F 67 20 157/72 H 87 L 04/04/20 23:25 97.6 F 59 L 20 144/66 H 91 L 04/04/20 20:23 59 L 04/04/20 20:20 60 133/59 L 04/04/20 20:00 97.4 F 60 18 133/59 L 94 L - Problem List & Annotations (1) EVAN (acute kidney injury) SNOMED Code(s): 64191054, 32485933 Code(s): N17.9 - ACUTE KIDNEY FAILURE, UNSPECIFIED Status: Acute Current Visit: Yes (2) Multiple fractures of ribs of left side SNOMED Code(s): 6426192 Code(s): S22.42XA - MULTIPLE FRACTURES OF RIBS, LEFT SIDE, INIT FOR CLOS FX Status: Acute Current Visit: Yes Qualifiers: Encounter type: subsequent encounter (3) Pleural effusion on left SNOMED Code(s): 90396290 Code(s): J90 - PLEURAL EFFUSION, NOT ELSEWHERE CLASSIFIED Status: Acute Current Visit: Yes (4) Pneumothorax, left SNOMED Code(s): 784372381 Code(s): J93.9 - PNEUMOTHORAX, UNSPECIFIED Status: Acute Current Visit: Yes (5) DM2 (diabetes mellitus, type 2) SNOMED Code(s): 46617148 Code(s): E11.9 - TYPE 2 DIABETES MELLITUS WITHOUT COMPLICATIONS Status: Chronic Current Visit: Yes Qualifiers: Diabetes mellitus buttermaker continuous churn insulin use: without longterm use - Problem List Review Problem List Initiated/Reviewed/Updated: Yes - My Orders Last 24 Hours: My Active Orders 04/05/20 08:00 HYDROcodone/Ibuprofen [Vicoprofen] 1 tab PO Q6H 04/05/20 Lunch Consistent Carbohydrate Diet [DIET] - Plan Plan:: 1. Stop Toradol and Tylenol. 2. Stop low-sodium diet and start a diabetic diet. 3. Hydrocodone/Tylenol 7.5 mg by 325 mg 1 pill every 6 hours scheduled. Monitor closely his pain control. If it's not adequate we'll increase either the frequency or the dose. 4. Continue O2 to keep sats greater than 90% 5. Continue PT/OT.
[2020-04-05] MEDS: Dutasteride 0.5 MG Cap PO SCH (08:41)
[2020-04-05] MEDS: HYDROcodone/Ibuprofen 7.5-200 MG Tab PO SCH ×2 (08:41→14:33)
[2020-04-05] MEDS: Losartan 50 MG Tab PO SCH (08:42)
[2020-04-05] MEDS: Aspirin 81 MG Tab.EC PO SCH (08:42)
[2020-04-05] MEDS: Enoxaparin 40 MG/0.4 ML Syringe SUBCUT SCH (08:42)
[2020-04-05] MEDS: amLODIPine 10 MG Tab PO SCH (08:42)
[2020-04-05] MEDS: Carboxymethylcellulose Sodium 0.5% Ophth Soln 15 ML Bottle EYEBOTH SCH ×3 (08:43→20:53)
[2020-04-05] MEDS: Metoprolol Tartrate 100 MG Tab PO SCH ×2 (08:43→20:58)
[2020-04-05] MEDS: Sertraline 50 MG Tab PO SCH ×2 (08:44→20:54)
[2020-04-05] MEDS: buPROPion 150 MG Tab.SR PO SCH (08:44)
[2020-04-05] MEDS: Albuterol 0.083% 2.5 MG/3 ML Neb Soln NEB SCH ×2 (08:48→20:53)
[2020-04-05] MEDS: Acetaminophen/oxyCODONE 325-5 MG Tab PO SCH ×2 (17:21→20:57)
[2020-04-06] MEDS: Acetaminophen/oxyCODONE 325-5 MG Tab PO SCH ×5 (01:07→16:16)
[2020-04-06] MEDS: Pantoprazole 40 MG Tab.CR PO SCH (06:49)
--- NOTE | 2020-04-06 08:00 | PCM.PN ---
- General Info Date of Service: 04/06/20 Admission Dx/Problem (Free Text): Patient did not sleep well last night. He is on scheduled Percocet every 4 hours. Doesn't know if it's helping. He is pretty well as long as he doesn't know when he twists around the knee has some pain. He denies shortness breath, chest pain. He has left leg swelling with that's not new and is been worked up in the clinic with a Doppler per charge nurse. - Patient Data Vitals - Most Recent: Last Vital Signs Temp 98.4 F 04/06/20 05:00 Pulse 60 04/06/20 05:00 Resp 20 04/06/20 05:00 BP 144/60 H 04/06/20 05:00 Pulse Ox 94 L 04/06/20 05:00 Weight - Most Recent: 206 lb 1 oz Lab Results Last 24 Hours: Laboratory Results - last 24 hr 04/05/20 04/05/20 04/05/20 Range/Units 11:34 16:40 21:45 POC Glucose 154 H 104 H 145 H (74-100) mg/dL 04/06/20 Range/Units 06:46 POC Glucose 96 (74-100) mg/dL Med Orders - Current: Current Medications Albuterol (Proventil Neb Soln) 2.5 mg NEB BID [facility] Last Admin: 04/05/20 20:53 Dose: 2.5 mg Documented by: Albuterol/Ipratropium (Duoneb 3.0-0.5 Mg/3 Ml) 3 ml NEB Q6H PRN PRN Reason: Dyspnea Last Admin: 04/02/20 23:00 Dose: 3 ml Documented by: Amlodipine Besylate (Norvasc) 10 mg PO DAILY [facility] Last Admin: 04/05/20 08:42 Dose: 10 mg Documented by: Artificial Tears (Refresh Tears 0.5%) 0 ml EYEBOTH TID [facility] Last Admin: 04/05/20 20:53 Dose: 2 drop Documented by: Aspirin (Halfprin) 81 mg PO DAILY [facility] Last Admin: 04/05/20 08:42 Dose: 81 mg Documented by: Bisacodyl (Dulcolax) 5 mg PO DAILY PRN PRN Reason: Constipation Last Admin: 04/05/20 03:09 Dose: 5 mg Documented by: Bupropion HCl (Wellbutrin Sr) 150 mg PO DAILY [facility] Last Admin: 04/05/20 08:44 Dose: 150 mg Documented by: Dutasteride (Avodart) 0.5 mg PO DAILY [facility] Last Admin: 04/05/20 08:41 Dose: 0.5 mg Documented by: Ezetimibe (Zetia) 10 mg PO DAILY [facility] Enoxaparin Sodium (Lovenox) 40 mg SUBCUT DAILY [facility] Last Admin: 04/05/20 08:42 Dose: 40 mg Documented by: Losartan Potassium (Cozaar) 50 mg PO DAILY [facility] Last Admin: 04/05/20 08:42 Dose: 50 mg Documented by: Magnesium Hydroxide (Milk Of Magnesia) 30 ml PO Q12H PRN PRN Reason: Constipation Last Admin: 04/05/20 03:09 Dose: 30 ml Documented by: Metoprolol Tartrate (Lopressor) 100 mg PO BID [facility] Last Admin: 04/05/20 20:58 Dose: 100 mg Documented by: Non-Formulary Medication (Rosuvastatin [Crestor]) 40 mg PO BEDTIME [facility] Ondansetron HCl (Zofran) 4 mg IV Q4H PRN PRN Reason: Nausea/Vomiting Last Admin: 04/03/20 03:45 Dose: 4 mg Documented by: Oxycodone/Acetaminophen (Percocet 325-5 Mg) 1 tab PO Q4H [facility] Last Admin: 04/06/20 04:59 Dose: 1 tab Documented by: Pantoprazole Sodium (Protonix) 40 mg PO ACBREAKFAST [facility] Last Admin: 04/06/20 06:49 Dose: 40 mg Documented by: Senna/Docusate Sodium (Senna Plus) 1 tab PO BID PRN PRN Reason: Constipation Last Admin: 04/04/20 16:49 Dose: 1 tab Documented by: Sertraline HCl (Zoloft) 150 mg PO DAILY [facility] Last Admin: 04/05/20 08:44 Dose: 150 mg Documented by: Sertraline HCl (Zoloft) 50 mg PO BEDTIME [facility] Last Admin: 04/05/20 20:54 Dose: 50 mg Documented by: Sodium Chloride (Saline Flush) 10 ml FLUSH ASDIRECTED PRN PRN Reason: Keep Vein Open Last Admin: 04/05/20 03:06 Dose: 10 ml Documented by: Sodium Chloride (Saline Flush) 10 ml FLUSH ASDIRECTED PRN PRN Reason: Keep Vein Open Zolpidem Tartrate (Ambien) 5 mg PO BEDTIME PRN PRN Reason: Sleep Last Admin: 04/04/20 22:45 Dose: 5 mg Documented by: Discontinued Medications Acetaminophen (Tylenol) 650 mg PO QID [facility] Last Admin: 04/04/20 20:19 Dose: 650 mg Documented by: Clopidogrel Bisulfate (Plavix) 75 mg PO DAILY [facility] Last Admin: 04/02/20 10:23 Dose: 75 mg Documented by: Diphtheria/Tetanus/Acell Pertussis (Adacel) 0.5 ml IM .ONCE ONE Stop: 04/02/20 02:42 Last Admin: 04/02/20 02:56 Dose: 0.5 ml Documented by: Enoxaparin Sodium (Lovenox) 100 mg SUBCUT ONETIME ONE Stop: 04/02/20 05:54 Last Admin: 04/02/20 07:56 Dose: 100 mg Documented by: Hydrochlorothiazide (Hydrochlorothiazide) 12.5 mg PO DAILY [facility] Last Admin: 04/02/20 10:22 Dose: 12.5 mg Documented by: Hydrocodone Bitartrate/Ibuprofen (Vicoprofen) 1 tab PO Q6H [facility] Last Admin: 04/05/20 14:33 Dose: 1 tab Documented by: Hydromorphone HCl (Dilaudid) 2 mg IVPUSH ONETIME ONE Stop: 04/02/20 02:38 Last Admin: 04/02/20 02:54 Dose: 2 mg Documented by: Hydromorphone HCl (Dilaudid) 0.5 mg IVPUSH Q2H PRN PRN Reason: Pain (severe 7-10) Iopamidol (Isovue-370 (76%)) 100 ml IV . DIRECTED ONE Stop: 04/02/20 03:39 Last Admin: 04/02/20 04:02 Dose: 100 ml Documented by: Ketorolac Tromethamine (Toradol) 15 mg IVPUSH Q6H [facility] Stop: 04/07/20 09:31 Last Admin: 04/05/20 03:01 Dose: 15 mg Documented by: Non-Formulary Medication (Fluocinolone Acetonide Oil [Dermotic]) 4 drop EARBOTH BID PRN PRN Reason: Itching Ondansetron HCl (Zofran) 4 mg IVPUSH ONETIME ONE Stop: 04/02/20 02:38 Last Admin: 04/02/20 02:50 Dose: 4 mg Documented by: Oxycodone HCl (Oxycodone) 5 mg PO Q4H PRN PRN Reason: Pain (moderate 4-6) Oxycodone/Acetaminophen (Percocet 325-5 Mg) 1 tab PO Q4H PRN PRN Reason: Breakthrough Pain Last Admin: 04/03/20 06:00 Dose: 1 tab Documented by: Polyethylene Glycol (Miralax) 17 gm PO ONETIME ONE Stop: 04/04/20 08:32 Last Admin: 04/04/20 09:13 Dose: 17 gm Documented by: - Exam General: Alert, Oriented, Cooperative Lungs: Clear to Auscultation, Normal Respiratory Effort. No: Crackles, Rales, Rhonchi Cardiovascular: Regular Rate, Regular Rhythm, No Murmurs Extremities: Other (Peripheral edema left leg) Psy/Mental Status: Alert, Normal Affect, Normal Mood Sepsis Event Note - Evaluation Sepsis Screening Result: No Definite Risk - Focused Exam Vital Signs: Vital Signs Temp Pulse Pulse Resp BP BP Pulse Ox 04/06/20 05:00 98.4 F 60 20 144/60 H 94 L 04/06/20 03:00 04/06/20 00:00 97.9 F 60 20 138/64 95 04/05/20 21:10 60 04/05/20 20:58 60 128/60 04/05/20 20:00 97.9 F 58 L 20 130/54 L 94 L Pulse Ox 04/06/20 05:00 04/06/20 03:00 95 04/06/20 00:00 04/05/20 21:10 04/05/20 20:58 04/05/20 20:00 - Problem List & Annotations (1) EVAN (acute kidney injury) SNOMED Code(s): 74248937, 69642522 Code(s): N17.9 - ACUTE KIDNEY FAILURE, UNSPECIFIED Status: Acute Current Visit: Yes (2) Multiple fractures of ribs of left side SNOMED Code(s): 1194613 Code(s): S22.42XA - MULTIPLE FRACTURES OF RIBS, LEFT SIDE, INIT FOR CLOS FX Status: Acute Current Visit: Yes Qualifiers: Encounter type: subsequent encounter (3) Pleural effusion on left SNOMED Code(s): 65006103 Code(s): J90 - PLEURAL EFFUSION, NOT ELSEWHERE CLASSIFIED Status: Acute Current Visit: Yes (4) Pneumothorax, left SNOMED Code(s): 404077221 Code(s): J93.9 - PNEUMOTHORAX, UNSPECIFIED Status: Acute Current Visit: Yes (5) DM2 (diabetes mellitus, type 2) SNOMED Code(s): 13172595 Code(s): E11.9 - TYPE 2 DIABETES MELLITUS WITHOUT COMPLICATIONS Status: Chronic Current Visit: Yes Qualifiers: Diabetes mellitus custodial insulin use: without custodial use (6) Leg edema, left SNOMED Code(s): 987480072 Code(s): R60.0 - LOCALIZED EDEMA Status: Acute Current Visit: Yes - Problem List Review Problem List Initiated/Reviewed/Updated: Yes - My Orders Last 24 Hours: My Active Orders 04/05/20 Lunch Consistent Carbohydrate Diet [DIET] 04/05/20 17:00 Acetaminophen/oxyCODONE [Percocet 325-5 MG] 1 tab PO Q4H 04/06/20 08:00 Lidocaine 5% [Lidoderm 5%] 700 mg TOP Q24H - Plan Plan:: 1. Continue scheduled Percocet 2. Lidocaine patch to the left ribs 3. Up ambulating. 4. Wean oxygen down to keep it above 90% 5. I will look on the regular chart at the clinic for the workup of his left leg. 6. Compression stocking to the left leg.
[2020-04-06] MEDS: Albuterol 0.083% 2.5 MG/3 ML Neb Soln NEB SCH ×2 (08:25→20:55)
[2020-04-06] MEDS: Losartan 50 MG Tab PO SCH (08:33)
[2020-04-06] MEDS: Lidocaine 5% 700 MG Patch TOP SCH (08:33)
[2020-04-06] MEDS: Dutasteride 0.5 MG Cap PO SCH (08:33)
[2020-04-06] MEDS: Aspirin 81 MG Tab.EC PO SCH (08:34)
[2020-04-06] MEDS: Metoprolol Tartrate 100 MG Tab PO SCH ×2 (08:34→20:53)
[2020-04-06] MEDS: Enoxaparin 40 MG/0.4 ML Syringe SUBCUT SCH (08:35)
[2020-04-06] MEDS: Carboxymethylcellulose Sodium 0.5% Ophth Soln 15 ML Bottle EYEBOTH SCH ×3 (08:35→20:53)
[2020-04-06] MEDS: amLODIPine 10 MG Tab PO SCH (08:35)
[2020-04-06] MEDS: buPROPion 150 MG Tab.SR PO SCH (08:35)
[2020-04-06] MEDS: Sertraline 50 MG Tab PO SCH ×2 (08:36→20:54)
[2020-04-06] MEDS ORDERED: fentaNYL 12 MCG/HR Transdermal Patch TRDERM SCH (16:15)
[2020-04-06] MEDS ORDERED: Cyclobenzaprine 10 MG Tab PO PRN (20:00)
[2020-04-06] MEDS: Acetaminophen/oxyCODONE 325-5 MG Tab PO PRN (21:02)
[2020-04-07 00:49] VITALS: BP 148/65
[2020-04-07] MEDS: Acetaminophen/oxyCODONE 325-5 MG Tab PO PRN (01:25)
[2020-04-07] MEDS: Pantoprazole 40 MG Tab.CR PO SCH (07:10)
[2020-04-07 08:03] VITALS: PULSE 64
--- NOTE | 2020-04-07 08:06 | PCM.PN ---
- General Info Date of Service: 04/07/20 Admission Dx/Problem (Free Text): Patient states he still has pain but probably improved. The nurses state since she's been on the fentanyl patch he is much improved and using less Percocet and is ambulating better. He denies any shortness of breath today. - Patient Data Vitals - Most Recent: Last Vital Signs Temp 98.1 F 04/07/20 08:00 Pulse 64 04/07/20 08:00 Resp 20 04/07/20 08:00 BP 148/65 H 04/07/20 00:00 Pulse Ox 95 04/07/20 08:00 Weight - Most Recent: 206 lb 1 oz Lab Results Last 24 Hours: Laboratory Results - last 24 hr 04/06/20 04/06/20 04/07/20 Range/Units 11:13 21:28 06:15 POC Glucose 177 H 121 H 101 H (74-100) mg/dL Med Orders - Current: Current Medications Albuterol (Proventil Neb Soln) 2.5 mg NEB BID [facility] Last Admin: 04/06/20 20:55 Dose: 2.5 mg Documented by: Albuterol/Ipratropium (Duoneb 3.0-0.5 Mg/3 Ml) 3 ml NEB Q6H PRN PRN Reason: Dyspnea Last Admin: 04/02/20 23:00 Dose: 3 ml Documented by: Amlodipine Besylate (Norvasc) 10 mg PO DAILY [facility] Last Admin: 04/06/20 08:35 Dose: 10 mg Documented by: Artificial Tears (Refresh Tears 0.5%) 0 ml EYEBOTH TID [facility] Last Admin: 04/06/20 20:53 Dose: 2 drop Documented by: Aspirin (Halfprin) 81 mg PO DAILY [facility] Last Admin: 04/06/20 08:34 Dose: 81 mg Documented by: Bisacodyl (Dulcolax) 5 mg PO DAILY PRN PRN Reason: Constipation Last Admin: 04/05/20 03:09 Dose: 5 mg Documented by: Bupropion HCl (Wellbutrin Sr) 150 mg PO DAILY [facility] Last Admin: 04/06/20 08:35 Dose: 150 mg Documented by: Cyclobenzaprine HCl (Flexeril) 10 mg PO BEDTIME PRN PRN Reason: Spasms Dutasteride (Avodart) 0.5 mg PO DAILY [facility] Last Admin: 04/06/20 08:33 Dose: 0.5 mg Documented by: Ezetimibe (Zetia) 10 mg PO DAILY [facility] Enoxaparin Sodium (Lovenox) 40 mg SUBCUT DAILY [facility] Last Admin: 04/06/20 08:35 Dose: 40 mg Documented by: Fentanyl (Duragesic) 12 mcg TRDERM Q72H [facility] Last Admin: 04/06/20 16:20 Dose: 12 mcg Documented by: Lidocaine (Lidoderm 5%) 700 mg TOP Q24H [facility] Last Admin: 04/06/20 08:33 Dose: 700 mg Documented by: Losartan Potassium (Cozaar) 50 mg PO DAILY [facility] Last Admin: 04/06/20 08:33 Dose: 50 mg Documented by: Magnesium Hydroxide (Milk Of Magnesia) 30 ml PO Q12H PRN PRN Reason: Constipation Last Admin: 04/05/20 03:09 Dose: 30 ml Documented by: Metoprolol Tartrate (Lopressor) 100 mg PO BID [facility] Last Admin: 04/06/20 20:53 Dose: 100 mg Documented by: Non-Formulary Medication (Rosuvastatin [Crestor]) 40 mg PO BEDTIME [facility] Ondansetron HCl (Zofran) 4 mg IV Q4H PRN PRN Reason: Nausea/Vomiting Last Admin: 04/03/20 03:45 Dose: 4 mg Documented by: Oxycodone/Acetaminophen (Percocet 325-5 Mg) 1 tab PO Q4H PRN PRN Reason: Pain Last Admin: 04/07/20 01:25 Dose: 1 tab Documented by: Pantoprazole Sodium (Protonix) 40 mg PO ACBREAKFAST [facility] Last Admin: 04/07/20 07:10 Dose: 40 mg Documented by: Senna/Docusate Sodium (Senna Plus) 1 tab PO BID PRN PRN Reason: Constipation Last Admin: 04/04/20 16:49 Dose: 1 tab Documented by: Sertraline HCl (Zoloft) 150 mg PO DAILY [facility] Last Admin: 04/06/20 08:36 Dose: 150 mg Documented by: Sertraline HCl (Zoloft) 50 mg PO BEDTIME [facility] Last Admin: 04/06/20 20:54 Dose: 50 mg Documented by: Sodium Chloride (Saline Flush) 10 ml FLUSH ASDIRECTED PRN PRN Reason: Keep Vein Open Last Admin: 04/05/20 03:06 Dose: 10 ml Documented by: Sodium Chloride (Saline Flush) 10 ml FLUSH ASDIRECTED PRN PRN Reason: Keep Vein Open Zolpidem Tartrate (Ambien) 5 mg PO BEDTIME PRN PRN Reason: Sleep Last Admin: 04/04/20 22:45 Dose: 5 mg Documented by: Discontinued Medications Acetaminophen (Tylenol) 650 mg PO QID [facility] Last Admin: 04/04/20 20:19 Dose: 650 mg Documented by: Clopidogrel Bisulfate (Plavix) 75 mg PO DAILY [facility] Last Admin: 04/02/20 10:23 Dose: 75 mg Documented by: Diphtheria/Tetanus/Acell Pertussis (Adacel) 0.5 ml IM .ONCE ONE Stop: 04/02/20 02:42 Last Admin: 04/02/20 02:56 Dose: 0.5 ml Documented by: Enoxaparin Sodium (Lovenox) 100 mg SUBCUT ONETIME ONE Stop: 04/02/20 05:54 Last Admin: 04/02/20 07:56 Dose: 100 mg Documented by: Hydrochlorothiazide (Hydrochlorothiazide) 12.5 mg PO DAILY [facility] Last Admin: 04/02/20 10:22 Dose: 12.5 mg Documented by: Hydrocodone Bitartrate/Ibuprofen (Vicoprofen) 1 tab PO Q6H [facility] Last Admin: 04/05/20 14:33 Dose: 1 tab Documented by: Hydromorphone HCl (Dilaudid) 2 mg IVPUSH ONETIME ONE Stop: 04/02/20 02:38 Last Admin: 04/02/20 02:54 Dose: 2 mg Documented by: Hydromorphone HCl (Dilaudid) 0.5 mg IVPUSH Q2H PRN PRN Reason: Pain (severe 7-10) Iopamidol (Isovue-370 (76%)) 100 ml IV . DIRECTED ONE Stop: 04/02/20 03:39 Last Admin: 04/02/20 04:02 Dose: 100 ml Documented by: Ketorolac Tromethamine (Toradol) 15 mg IVPUSH Q6H [facility] Stop: 04/07/20 09:31 Last Admin: 04/05/20 03:01 Dose: 15 mg Documented by: Non-Formulary Medication (Fluocinolone Acetonide Oil [Dermotic]) 4 drop EARBOTH BID PRN PRN Reason: Itching Ondansetron HCl (Zofran) 4 mg IVPUSH ONETIME ONE Stop: 04/02/20 02:38 Last Admin: 04/02/20 02:50 Dose: 4 mg Documented by: Oxycodone HCl (Oxycodone) 5 mg PO Q4H PRN PRN Reason: Pain (moderate 4-6) Oxycodone/Acetaminophen (Percocet 325-5 Mg) 1 tab PO Q4H PRN PRN Reason: Breakthrough Pain Last Admin: 04/03/20 06:00 Dose: 1 tab Documented by: Oxycodone/Acetaminophen (Percocet 325-5 Mg) 1 tab PO Q4H [facility] Last Admin: 04/06/20 16:16 Dose: 1 tab Documented by: Polyethylene Glycol (Miralax) 17 gm PO ONETIME ONE Stop: 04/04/20 08:32 Last Admin: 04/04/20 09:13 Dose: 17 gm Documented by: - Exam General: Alert, Oriented Lungs: Clear to Auscultation, Normal Respiratory Effort. No: Crackles, Rales, Rhonchi Sepsis Event Note - Evaluation Sepsis Screening Result: No Definite Risk - Focused Exam Vital Signs: Vital Signs Temp Pulse Pulse Resp BP BP Pulse Ox 04/07/20 08:00 98.1 F 64 20 95 04/07/20 04:00 72 20 93 L 04/07/20 00:00 97.0 F 64 20 148/65 H 93 L 04/06/20 21:10 68 04/06/20 20:53 64 144/70 H Pulse Ox 04/07/20 08:00 04/07/20 04:00 93 L 04/07/20 00:00 92 L 04/06/20 21:10 04/06/20 20:53 - Problem List & Annotations (1) EVAN (acute kidney injury) SNOMED Code(s): 83732287, 66519371 Code(s): N17.9 - ACUTE KIDNEY FAILURE, UNSPECIFIED Status: Acute Current Visit: Yes (2) Multiple fractures of ribs of left side SNOMED Code(s): 0020955 Code(s): S22.42XA - MULTIPLE FRACTURES OF RIBS, LEFT SIDE, INIT FOR CLOS FX Status: Acute Current Visit: Yes Qualifiers: Encounter type: subsequent encounter (3) Pleural effusion on left SNOMED Code(s): 94293892 Code(s): J90 - PLEURAL EFFUSION, NOT ELSEWHERE CLASSIFIED Status: Acute Current Visit: Yes (4) Pneumothorax, left SNOMED Code(s): 683955709 Code(s): J93.9 - PNEUMOTHORAX, UNSPECIFIED Status: Acute Current Visit: Yes (5) DM2 (diabetes mellitus, type 2) SNOMED Code(s): 35059826 Code(s): E11.9 - TYPE 2 DIABETES MELLITUS WITHOUT COMPLICATIONS Status: Chronic Current Visit: Yes Qualifiers: Diabetes mellitus terminal press operator insulin use: without fci use (6) Leg edema, left SNOMED Code(s): 750504898 Code(s): R60.0 - LOCALIZED EDEMA Status: Acute Current Visit: Yes - Problem List Review Problem List Initiated/Reviewed/Updated: Yes - My Orders Last 24 Hours: My Active Orders 04/06/20 08:00 Lidocaine 5% [Lidoderm 5%] 700 mg TOP Q24H 04/06/20 08:21 DEO Hose [Antiembolic Hose] [OM.PC] Routine 04/06/20 16:12 Acetaminophen/oxyCODONE [Percocet 325-5 MG] 1 tab PO Q4H PRN 04/06/20 16:15 fentaNYL [Duragesic] 12 mcg TRDERM Q72H 04/06/20 20:00 Cyclobenzaprine [Flexeril] 10 mg PO BEDTIME PRN - Plan Plan:: 1. Transfer to swing bed today and the same medications, PT/OT.
--- NOTE | 2020-04-07 08:13 | PCM.DCSUM1 ---
Discharge Summary - Hospital Course Free Text/Narrative:: Hospital course-patient was admitted because of multiple rib fractures the left side and hypoxia. He was found to have a small pneumothorax, hemothorax and possible pulmonary contusion. He had a head CT that showed no acute changes. CT scan of the chest showed the above changes. His oxygen was low and he was requiring 6 L oxygen to keep his sat greater than 100%. His having some nausea and his pain was poorly controlled. Initially Toradol and Tylenol number switch him to oral hydrocodone and Percocet. Percocet didn't help a whole lot so I switched him again to fentanyl patch and Percocet when necessary and that made a difference. He had PT/OT. And did well. Over time his oxygen improved and he got off oxygen. We'll switch him to swing bed for physical therapy and occupational therapy. Brief History: Mr. Lowery a 80 yo male admitted yesterday with multiple rib fractures after a fall on level ground. He came in by EMS, and is admitted for pain control. Pain is sharp severe worse with any movement. He has a history of coronary disease, hypertension, obesity, chronic left leg swelling. He also endorses a h/o HTN, DM and Insomnia. Diagnosis: Stroke: No - Discharge Data Discharge Date: 04/07/20 Discharge Disposition: DC/Tfer W/I Hosp To Swing Condition: Good - Referral to Home Health Primary Care Physician: Leatha Silverio NP - Discharge Diagnosis/Problem(s) (1) EVAN (acute kidney injury) SNOMED Code(s): 12018201, 37694448 ICD Code: N17.9 - ACUTE KIDNEY FAILURE, UNSPECIFIED Status: Acute Current Visit: Yes (2) Multiple fractures of ribs of left side SNOMED Code(s): 8943150 ICD Code: S22.42XA - MULTIPLE FRACTURES OF RIBS, LEFT SIDE, INIT FOR CLOS FX Status: Acute Current Visit: Yes Qualifiers: Encounter type: subsequent encounter (3) Pleural effusion on left SNOMED Code(s): 53625642 ICD Code: J90 - PLEURAL EFFUSION, NOT ELSEWHERE CLASSIFIED Status: Acute Current Visit: Yes (4) Pneumothorax, left SNOMED Code(s): 607742616 ICD Code: J93.9 - PNEUMOTHORAX, UNSPECIFIED Status: Acute Current Visit: Yes (5) DM2 (diabetes mellitus, type 2) SNOMED Code(s): 95924643 ICD Code: E11.9 - TYPE 2 DIABETES MELLITUS WITHOUT COMPLICATIONS Status: Chronic Current Visit: Yes Qualifiers: Diabetes mellitus detention insulin use: without terminologist use (6) Leg edema, left SNOMED Code(s): 211488502 ICD Code: R60.0 - LOCALIZED EDEMA Status: Acute Current Visit: Yes - Patient Summary/Data Consults: Consultations 04/02/20 05:53 Consult to Canvas Repairer [CONS] Routine Comment: Physician Instructions: Quantity: Reason for Consult: albumin 3.0 Special Instructions: OT Evaluation and Treatment [CONS] Routine Please Evaluate and Treat. OT Reason for Consult: ADL's This query below is only for informational purposes and is not editable. Admission Diagnosis/Problem: Rib pain on left side PT Evaluation and Treatment [CONS] Routine Please Evaluate and Treat. PT Reason for Consult: Ambulation This query below is only for informational purposes and is not editable. Admission Diagnosis/Problem: Rib pain on left side 04/02/20 09:50 Consult to Physician [CONS] Urgent Consulting Provider: Atul Avendaño Courtesy Call Completed to Consulting Physician: Yes - Patient Instructions Diet: Diabetic Diet Activity: As Tolerated Driving: Do Not Drive Showering/Bathing: May Shower Notify Provider of: Increased Pain Other/Special Instructions: 1. Transfer to swing bed for PT/OT - Discharge Plan *PRESCRIPTION DRUG MONITORING PROGRAM REVIEWED*: Not Applicable *COPY OF PRESCRIPTION DRUG MONITORING REPORT IN PATIENT RADHAMES: Not Applicable Home Medications: Home Meds Aspirin [Low Dose Aspirin EC] 81 mg PO DAILY 01/05/17 [History] Efinaconazole [Jublia] 1 applic TOP DAILY 01/05/17 [History] Ezetimibe [Zetia] 10 mg PO DAILY 01/05/17 [History] Ketoconazole [Nizoral 2% Shampoo] 1 applic TOP ASDIRECTED PRN 01/05/17 [History] Losartan/Hydrochlorothiazide [Losartan-HCTZ 100-25 MG] 0.5 tab PO DAILY 01/05/17 [History] Metoprolol Tartrate [Lopressor] 100 mg PO BID 01/05/17 [History] Omeprazole 20 mg PO DAILY 01/05/17 [History] Rosuvastatin [Crestor] 40 mg PO BEDTIME 01/05/17 [History] Sennosides/Docusate Sodium [Senna-Docusate Sodium] 1 each PO BID PRN 01/05/17 [History] Sertraline [Zoloft] 50 mg PO BEDTIME 01/05/17 [History] Sertraline [Zoloft] 150 mg PO DAILY 01/05/17 [History] amLODIPine [Norvasc] 10 mg PO DAILY 01/05/17 [History] buPROPion [Wellbutrin SR] 150 mg PO DAILY 01/05/17 [History] fluocinolone acetonide oiL [Dermotic] 4 drop EARBOTH BID PRN 01/05/17 [History] Clopidogrel [Plavix] 75 mg PO DAILY 09/11/19 [History] Dutasteride [Avodart] 0.5 mg PO DAILY 09/11/19 [History] Cyclobenzaprine [Flexeril] 5 mg TID PRN 04/02/20 [History] metFORMIN [Glucophage] 500 mg PO BIDMEALS 04/02/20 [History] Acetaminophen/oxyCODONE [Percocet 325-5 MG] 1 tab PO Q4H PRN tablet 04/07/20 [Rx] Carboxymethylcellulose Sodium [Refresh Tears 0.5%] 0 ml EYEBOTH TID bottle 04/07/20 [Rx] bisacodyL [Dulcolax] 5 mg PO DAILY PRN tablet 04/07/20 [Rx] fentaNYL [Duragesic] 12 mcg TRDERM Q72H patch 04/07/20 [Rx] Patient Handouts: Fall Prevention in Hospitals, Adult, Rib Fracture, [id number], Venous Thromboembolism Prevention Forms: ED Department Discharge Referrals: Leatha Silverio NP [Primary Care Provider] - - Discharge Summary/Plan Comment DC Time >30 min.: No - Patient Data Vitals - Most Recent: Last Vital Signs Temp 98.1 F 04/07/20 08:00 Pulse 64 04/07/20 08:00 Resp 20 04/07/20 08:00 BP 148/65 H 04/07/20 00:00 Pulse Ox 95 04/07/20 08:00 Weight - Most Recent: 206 lb 1 oz Lab Results - Last 24 hrs: Laboratory Results - last 24 hr 04/06/20 04/06/20 04/07/20 Range/Units 11:13 21:28 06:15 POC Glucose 177 H 121 H 101 H (74-100) mg/dL Med Orders - Current: Current Medications Albuterol (Proventil Neb Soln) 2.5 mg NEB BID [facility] Last Admin: 04/06/20 20:55 Dose: 2.5 mg Documented by: Albuterol/Ipratropium (Duoneb 3.0-0.5 Mg/3 Ml) 3 ml NEB Q6H PRN PRN Reason: Dyspnea Last Admin: 04/02/20 23:00 Dose: 3 ml Documented by: Amlodipine Besylate (Norvasc) 10 mg PO DAILY [facility] Last Admin: 04/06/20 08:35 Dose: 10 mg Documented by: Artificial Tears (Refresh Tears 0.5%) 0 ml EYEBOTH TID [facility] Last Admin: 04/06/20 20:53 Dose: 2 drop Documented by: Aspirin (Halfprin) 81 mg PO DAILY [facility] Last Admin: 04/06/20 08:34 Dose: 81 mg Documented by: Bisacodyl (Dulcolax) 5 mg PO DAILY PRN PRN Reason: Constipation Last Admin: 04/05/20 03:09 Dose: 5 mg Documented by: Bupropion HCl (Wellbutrin Sr) 150 mg PO DAILY [facility] Last Admin: 04/06/20 08:35 Dose: 150 mg Documented by: Cyclobenzaprine HCl (Flexeril) 10 mg PO BEDTIME PRN PRN Reason: Spasms Dutasteride (Avodart) 0.5 mg PO DAILY [facility] Last Admin: 04/06/20 08:33 Dose: 0.5 mg Documented by: Ezetimibe (Zetia) 10 mg PO DAILY [facility] Enoxaparin Sodium (Lovenox) 40 mg SUBCUT DAILY [facility] Last Admin: 04/06/20 08:35 Dose: 40 mg Documented by: Fentanyl (Duragesic) 12 mcg TRDERM Q72H [facility] Last Admin: 04/06/20 16:20 Dose: 12 mcg Documented by: Lidocaine (Lidoderm 5%) 700 mg TOP Q24H [facility] Last Admin: 04/06/20 08:33 Dose: 700 mg Documented by: Losartan Potassium (Cozaar) 50 mg PO DAILY [facility] Last Admin: 04/06/20 08:33 Dose: 50 mg Documented by: Magnesium Hydroxide (Milk Of Magnesia) 30 ml PO Q12H PRN PRN Reason: Constipation Last Admin: 04/05/20 03:09 Dose: 30 ml Documented by: Metoprolol Tartrate (Lopressor) 100 mg PO BID [facility] Last Admin: 04/06/20 20:53 Dose: 100 mg Documented by: Non-Formulary Medication (Rosuvastatin [Crestor]) 40 mg PO BEDTIME [facility] Ondansetron HCl (Zofran) 4 mg IV Q4H PRN PRN Reason: Nausea/Vomiting Last Admin: 04/03/20 03:45 Dose: 4 mg Documented by: Oxycodone/Acetaminophen (Percocet 325-5 Mg) 1 tab PO Q4H PRN PRN Reason: Pain Last Admin: 04/07/20 01:25 Dose: 1 tab Documented by: Pantoprazole Sodium (Protonix) 40 mg PO ACBREAKFAST [facility] Last Admin: 04/07/20 07:10 Dose: 40 mg Documented by: Senna/Docusate Sodium (Senna Plus) 1 tab PO BID PRN PRN Reason: Constipation Last Admin: 04/04/20 16:49 Dose: 1 tab Documented by: Sertraline HCl (Zoloft) 150 mg PO DAILY [facility] Last Admin: 04/06/20 08:36 Dose: 150 mg Documented by: Sertraline HCl (Zoloft) 50 mg PO BEDTIME [facility] Last Admin: 04/06/20 20:54 Dose: 50 mg Documented by: Sodium Chloride (Saline Flush) 10 ml FLUSH ASDIRECTED PRN PRN Reason: Keep Vein Open Last Admin: 04/05/20 03:06 Dose: 10 ml Documented by: Sodium Chloride (Saline Flush) 10 ml FLUSH ASDIRECTED PRN PRN Reason: Keep Vein Open Zolpidem Tartrate (Ambien) 5 mg PO BEDTIME PRN PRN Reason: Sleep Last Admin: 04/04/20 22:45 Dose: 5 mg Documented by: Discontinued Medications Acetaminophen (Tylenol) 650 mg PO QID [facility] Last Admin: 04/04/20 20:19 Dose: 650 mg Documented by: Clopidogrel Bisulfate (Plavix) 75 mg PO DAILY [facility] Last Admin: 04/02/20 10:23 Dose: 75 mg Documented by: Diphtheria/Tetanus/Acell Pertussis (Adacel) 0.5 ml IM .ONCE ONE Stop: 04/02/20 02:42 Last Admin: 04/02/20 02:56 Dose: 0.5 ml Documented by: Enoxaparin Sodium (Lovenox) 100 mg SUBCUT ONETIME ONE Stop: 04/02/20 05:54 Last Admin: 04/02/20 07:56 Dose: 100 mg Documented by: Hydrochlorothiazide (Hydrochlorothiazide) 12.5 mg PO DAILY [facility] Last Admin: 04/02/20 10:22 Dose: 12.5 mg Documented by: Hydrocodone Bitartrate/Ibuprofen (Vicoprofen) 1 tab PO Q6H [facility] Last Admin: 04/05/20 14:33 Dose: 1 tab Documented by: Hydromorphone HCl (Dilaudid) 2 mg IVPUSH ONETIME ONE Stop: 04/02/20 02:38 Last Admin: 04/02/20 02:54 Dose: 2 mg Documented by: Hydromorphone HCl (Dilaudid) 0.5 mg IVPUSH Q2H PRN PRN Reason: Pain (severe 7-10) Iopamidol (Isovue-370 (76%)) 100 ml IV . DIRECTED ONE Stop: 04/02/20 03:39 Last Admin: 04/02/20 04:02 Dose: 100 ml Documented by: Ketorolac Tromethamine (Toradol) 15 mg IVPUSH Q6H [facility] Stop: 04/07/20 09:31 Last Admin: 04/05/20 03:01 Dose: 15 mg Documented by: Non-Formulary Medication (Fluocinolone Acetonide Oil [Dermotic]) 4 drop EARBOTH BID PRN PRN Reason: Itching Ondansetron HCl (Zofran) 4 mg IVPUSH ONETIME ONE Stop: 04/02/20 02:38 Last Admin: 04/02/20 02:50 Dose: 4 mg Documented by: Oxycodone HCl (Oxycodone) 5 mg PO Q4H PRN PRN Reason: Pain (moderate 4-6) Oxycodone/Acetaminophen (Percocet 325-5 Mg) 1 tab PO Q4H PRN PRN Reason: Breakthrough Pain Last Admin: 04/03/20 06:00 Dose: 1 tab Documented by: Oxycodone/Acetaminophen (Percocet 325-5 Mg) 1 tab PO Q4H [facility] Last Admin: 04/06/20 16:16 Dose: 1 tab Documented by: Polyethylene Glycol (Miralax) 17 gm PO ONETIME ONE Stop: 04/04/20 08:32 Last Admin: 04/04/20 09:13 Dose: 17 gm Documented by:
[2020-04-07] MEDS: Lidocaine 5% 700 MG Patch TOP SCH (12:08)
== END 2020-04-07 08:08 | disposition swing bed (61) | DRG 200 ==
LOC: FB.ED 01:47 → FB.MS 05:43 → UNDOADMIN 05:43
PROVIDERS: ADMIT Emergency Medicine; ATTEND Family Medicine
DX: S27.0XXA Traumatic pneumothorax, initial encounter (principal); S22.42XA Multiple fractures of ribs, left side, initial encounter for closed fracture; W01.0XXA Fall on same level from slipping, tripping and stumbling without subsequent striking against object, initial encounter; S27.329A Contusion of lung, unspecified, initial encounter; R79.1 Abnormal coagulation profile; R94.5 Abnormal results of liver function studies; R31.29 Other microscopic hematuria; N17.9 Acute kidney failure, unspecified; N18.9 Chronic kidney disease, unspecified; D64.9 Anemia, unspecified; I44.0 Atrioventricular block, first degree; R60.0 Localized edema; J90 Pleural effusion, not elsewhere classified; I25.10 Atherosclerotic heart disease of native coronary artery without angina pectoris; I12.9 Hypertensive chronic kidney disease with stage 1 through stage 4 chronic kidney disease, or unspecified chronic kidney disease; I25.810 Atherosclerosis of coronary artery bypass graft(s) without angina pectoris; S27.1XXA Traumatic hemothorax, initial encounter; I73.9 Peripheral vascular disease, unspecified; W19.XXXA Unspecified fall, initial encounter; Z87.19 Personal history of other diseases of the digestive system; E11.22 Type 2 diabetes mellitus with diabetic chronic kidney disease; E11.40 Type 2 diabetes mellitus with diabetic neuropathy, unspecified; I10 Essential (primary) hypertension; E66.9 Obesity, unspecified; G89.29 Other chronic pain; M79.89 Other specified soft tissue disorders; G47.00 Insomnia, unspecified; K59.03 Drug induced constipation; H54.7 Unspecified visual loss; J30.9 Allergic rhinitis, unspecified; E78.00 Pure hypercholesterolemia, unspecified; E11.51 Type 2 diabetes mellitus with diabetic peripheral angiopathy without gangrene; E11.42 Type 2 diabetes mellitus with diabetic polyneuropathy; K21.9 Gastro-esophageal reflux disease without esophagitis; N40.0 Benign prostatic hyperplasia without lower urinary tract symptoms; M19.90 Unspecified osteoarthritis, unspecified site; M48.061 Spinal stenosis, lumbar region without neurogenic claudication; F41.9 Anxiety disorder, unspecified; F32.9 Major depressive disorder, single episode, unspecified; D69.2 Other nonthrombocytopenic purpura; Z96.651 Presence of right artificial knee joint; Y92.009 Unspecified place in unspecified non-institutional (private) residence as the place of occurrence of the external cause; Z79.82 Long term (current) use of aspirin; Z79.899 Other long term (current) drug therapy; Z79.02 Long term (current) use of antithrombotics/antiplatelets; Z79.84 Long term (current) use of oral hypoglycemic drugs; Z91.040 Latex allergy status; I25.2 Old myocardial infarction; Z79.01 Long term (current) use of anticoagulants; Z85.46 Personal history of malignant neoplasm of prostate; Z98.49 Cataract extraction status, unspecified eye; Z95.5 Presence of coronary angioplasty implant and graft; Z95.1 Presence of aortocoronary bypass graft; Z87.891 Personal history of nicotine dependence; Z68.31 Body mass index [BMI] 31.0-31.9, adult; Z20.828 Contact with and (suspected) exposure to other viral communicable diseases
CPT/HCPCS: 36415; 70450; 71045; 71046; 71260; 74019; 74177; 80048; 80053; 81001; 82962; 83880; 84484; 85025; 85379; 85610; 85730; 86140; 90471; 90715; 93005; 94150; 94640; 94760; 96372; 96374; 96375; 97110-GO; 97161-GP; 97165-GO; 97530-GO; 97530-GP; 99285-25; A9270-GY; J1170; J1650; J1885; J2405; J7620-GY; Q9967; U0002

== ENCOUNTER 2020-04-07 08:09 | Inpatient (IN) | payer MEDICARE, OTHER ==
[2020-04-07] MEDS ORDERED: Bisacodyl 5 MG Tab PO PRN (09:26)
[2020-04-07] MEDS ORDERED: FLUOCINOLONE ACETONIDE OIL EARBOTH PRN (09:26)
--- NOTE | 2020-04-07 09:36 | PCM.HP.2 ---
H&P History of Present Illness - General Date of Service: 04/07/20 Admit Problem/Dx: Admission Diagnosis/Problem Admission Diagnosis/Problem Fracture of multiple ribs Source of Information: Patient, Old Records History Limitations: Reports: No Limitations - History of Present Illness Initial Comments - Free Text/Narative: This is a 80-year-old male patient that fell at home and has multiple left rib fractures. He came into the hospital and was admitted for pain control, small pneumothorax with no chest tube, hemothorax and possible lung contusion. He was hypoxic and oxygen 6 L during his hospitalization that was weaned down. He was slowly titrated up on his medication until he finally had some improvement on a Duragesic patch and Percocet when necessary. Receiving physical therapy and occupational therapy and he is good enough to go to swing bed today. left back Pain Score (Numeric/FACES): 3 - Related Data Allergies/Adverse Reactions: Allergies Allergy/AdvReac Type Severity Reaction Status Date / Time latex Allergy Rash Verified 04/02/20 01:58 Home Medications: Home Meds Aspirin [Low Dose Aspirin EC] 81 mg PO DAILY 01/05/17 [History] Efinaconazole [Jublia] 1 applic TOP DAILY 01/05/17 [History] Ezetimibe [Zetia] 10 mg PO DAILY 01/05/17 [History] Ketoconazole [Nizoral 2% Shampoo] 1 applic TOP ASDIRECTED PRN 01/05/17 [History] Losartan/Hydrochlorothiazide [Losartan-HCTZ 100-25 MG] 0.5 tab PO DAILY 01/05/17 [History] Metoprolol Tartrate [Lopressor] 100 mg PO BID 01/05/17 [History] Omeprazole 20 mg PO DAILY 01/05/17 [History] Rosuvastatin [Crestor] 40 mg PO BEDTIME 01/05/17 [History] Sennosides/Docusate Sodium [Senna-Docusate Sodium] 1 each PO BID PRN 01/05/17 [History] Sertraline [Zoloft] 50 mg PO BEDTIME 01/05/17 [History] Sertraline [Zoloft] 150 mg PO DAILY 01/05/17 [History] amLODIPine [Norvasc] 10 mg PO DAILY 01/05/17 [History] buPROPion [Wellbutrin SR] 150 mg PO DAILY 01/05/17 [History] fluocinolone acetonide oiL [Dermotic] 4 drop EARBOTH BID PRN 01/05/17 [History] Clopidogrel [Plavix] 75 mg PO DAILY 09/11/19 [History] Dutasteride [Avodart] 0.5 mg PO DAILY 09/11/19 [History] Cyclobenzaprine [Flexeril] 5 mg TID PRN 04/02/20 [History] metFORMIN [Glucophage] 500 mg PO BIDMEALS 04/02/20 [History] Acetaminophen/oxyCODONE [Percocet 325-5 MG] 1 tab PO Q4H PRN tablet 04/07/20 [Rx] Carboxymethylcellulose Sodium [Refresh Tears 0.5%] 0 ml EYEBOTH TID bottle 04/07/20 [Rx] bisacodyL [Dulcolax] 5 mg PO DAILY PRN tablet 04/07/20 [Rx] fentaNYL [Duragesic] 12 mcg TRDERM Q72H patch 04/07/20 [Rx] Past Medical History HEENT History: Reports: Allergic Rhinitis, Cataract, Impaired Vision, Sinusitis, Other (See Below) Other HEENT History: CHRONIC CONJUCTIVITIS, MEIBOMIAN GLAND DYSFUNCTION, HYPEROPIA, ASTIGMATISM Cardiovascular History: Reports: Angina, CAD, High Cholesterol, Hypertension, [place], PVD Other Cardiovascular History: ATHEROSCLEROSIS Respiratory History: Reports: None Gastrointestinal History: Reports: GERD, Hemorrhoids Other Gastrointestinal History: RECTAL POLYP Genitourinary History: Reports: BPH, Prostate Disorder, Other (See Below) Other Genitourinary History: POLYURIA, [employer] CLINICAL History: Reports: None Musculoskeletal History: Reports: Arthritis, Osteoarthritis Other Musculoskeletal History: SPINAL STENOSIS OF LUMBAR REGION, Neurological History: Reports: Neuropathy, Diabetic Psychiatric History: Reports: Anxiety, Depression Endocrine/Metabolic History: Reports: Diabetes, Type II, Obesity/BMI 30+ Hematologic History: Reports: Anticoagulation Therapy Other Hematologic History: NONTHROMBOCYTOPENIA PURPURA Oncologic (Cancer) History: Reports: Prostate - Infectious Disease History Infectious Disease History: Reports: Chicken Pox, Measles - Past Surgical History HEENT Surgical History: Reports: Cataract Surgery, Naso-Sinus Surgery Other HEENT Surgeries/Procedures: FESS. PHACO IOL RIGHT Cardiovascular Surgical History: Reports: Coronary Artery Bypass, Coronary Artery Stent, Varicose, Vascular Surgery Other Cardiovascular Surgeries/Procedures: VENOUS INSUFFICIENCY, 5 vessel CABG GI Surgical History: Reports: Colonoscopy Other GI Surgeries/Procedures: HEMORRHOIDS Other Male Surgeries/Procedures: ENLARGED PROSTATE, MALIGNANT NEOPLASM OF PROSTATE Musculoskeletal Surgical History: Reports: Knee Replacement Other Musculoskeletal Surgeries/Procedures:: R knee replacement Social & Family History - Family History Family Medical History: Noncontributory - Caffeine Use Caffeine Use: Reports: Coffee, Soda H&P Review of Systems - Review of Systems: Review Of Systems: See Below General: Reports: No Symptoms HEENT: Reports: No Symptoms Pulmonary: Reports: Other (Left rib pain). Denies: Shortness of Breath, Wh eezing, Pleuritic Chest Pain Cardiovascular: Reports: No Symptoms Gastrointestinal: Reports: No Symptoms Genitourinary: Reports: No Symptoms Musculoskeletal: Reports: No Symptoms Skin: Reports: No Symptoms Psychiatric: Reports: No Symptoms Neurological: Reports: No Symptoms Hematologic/Lymphatic: Reports: No Symptoms Immunologic: Reports: No Symptoms Exam - Exam Exam: See Below - Vital Signs Vital Signs: Last Vital Signs Temp 98.1 F 04/07/20 09:28 Pulse 64 04/07/20 09:28 Resp 20 04/07/20 09:28 BP 162/75 H 04/07/20 09:28 Pulse Ox 95 04/07/20 09:28 Weight: 206 lb 1 oz - Exam General: Alert, Oriented, Sedated HEENT: Hearing Intact, Posterior Pharynx Clear Neck: Supple, Trachea Midline Lungs: Clear to Auscultation, Normal Respiratory Effort. No: Crackles, Rales, Rhonchi, Rub Cardiovascular: Regular Rate, Regular Rhythm. No: Systolic Murmur GI/Abdominal Exam: Normal Bowel Sounds, Soft, Non-Tender, No Distention Extremities: Non-Tender (Left leg which is chronic) Neurological: Normal Gait, Normal Speech Neuro Extensive - Mental Status: Alert, Oriented x3, Normal Mood/Affect, Normal Cognition Psychiatric: Alert, Normal Affect, Normal Mood Sepsis Event Note - Evaluation Sepsis Screening Result: No Definite Risk - Focused Exam Vital Signs: Vital Signs Temp Pulse Resp BP Pulse Ox Pulse Ox 04/07/20 09:28 98.1 F 64 20 162/75 H 95 04/07/20 09:23 95 - Problem List (1) EVAN (acute kidney injury) SNOMED Code(s): 24593999, 88930741 ICD Code: N17.9 - ACUTE KIDNEY FAILURE, UNSPECIFIED Status: Acute Current Visit: No (2) Multiple fractures of ribs of left side SNOMED Code(s): 0625538 ICD Code: S22.42XA - MULTIPLE FRACTURES OF RIBS, LEFT SIDE, INIT FOR CLOS FX Status: Acute Current Visit: No (3) Pleural effusion on left SNOMED Code(s): 01703487 ICD Code: J90 - PLEURAL EFFUSION, NOT ELSEWHERE CLASSIFIED Status: Acute Current Visit: No (4) Pneumothorax, left SNOMED Code(s): 272130792 ICD Code: J93.9 - PNEUMOTHORAX, UNSPECIFIED Status: Acute Current Visit: No (5) DM2 (diabetes mellitus, type 2) SNOMED Code(s): 82471442 ICD Code: E11.9 - TYPE 2 DIABETES MELLITUS WITHOUT COMPLICATIONS Status: Chronic Current Visit: No Problem List Initiated/Reviewed/Updated: Yes Orders Last 24hrs: Active Orders 24 hr Category Date Time Status Patient Status [ADT] Routine ADT 04/07/20 09:23 Ordered Height and Weight [RC] WEEKLY Care 04/07/20 09:23 Ordered May Shower [RC] ASDIRECTED Care 04/07/20 09:23 Ordered Oxygen Therapy [RC] PRN Care 04/07/20 09:23 Ordered Up ad Krys [RC] ASDIRECTED Care 04/07/20 09:23 Ordered VTE/DVT Education [RC] Per Unit Routine Care 04/07/20 09:23 Ordered Vital Signs [RC] PER UNIT ROUTINE Care 04/07/20 09:23 Ordered OT Evaluation and Treatment [CONS] Routine Cons 04/07/20 09:23 Ordered PT Evaluation and Treatment [CONS] Routine Cons 04/07/20 09:23 Ordered Consistent Carbohydrate Diet [DIET] Diet 04/07/20 Lunch Ordered Acetaminophen/oxyCODONE [Percocet 325-5 MG] Med 04/07/20 09:26 Ordered 1 tab PO Q4H PRN Aspirin [Halfprin] Med 04/08/20 09:00 Ordered 81 mg PO DAILY Carboxymethylcellulose Sodium [Refresh Tears 0.5%] Med 04/07/20 14:00 Ordered 1 ml EYEBOTH TID Clopidogrel [Plavix] Med 04/08/20 09:00 Ordered 75 mg PO DAILY Docusate Sodium/Sennosides [Senna Plus] Med 04/07/20 09:26 Ordered 1 each PO BID PRN Dutasteride [Avodart] Med 04/08/20 09:00 Ordered 0.5 mg PO DAILY Efinaconazole [Jublia] Med 04/08/20 09:00 Ordered 1 applic TOP DAILY Ezetimibe [Zetia] Med 04/08/20 09:00 Ordered 10 mg PO DAILY Ketoconazole [Nizoral 2% Shampoo] Med 04/07/20 09:26 Ordered 1 applic TOP ASDIRECTED PRN Losartan/Hydrochlorothiazide [Losartan-HCTZ 100-25 MG] Med 04/08/20 09:00 Ordered 0.5 tab PO DAILY Metoprolol Tartrate [Lopressor] Med 04/07/20 21:00 Ordered 100 mg PO BID Omeprazole [Omeprazole] Med 04/08/20 09:00 Ordered 20 mg PO DAILY Sertraline [Zoloft] Med 04/08/20 09:00 Ordered 150 mg PO DAILY Sertraline [Zoloft] Med 04/07/20 21:00 Ordered 50 mg PO BEDTIME amLODIPine [Norvasc] Med 04/08/20 09:00 Ordered 10 mg PO DAILY bisacodyL [Dulcolax] Med 04/07/20 09:26 Ordered 5 mg PO DAILY PRN buPROPion [Wellbutrin SR] Med 04/08/20 09:00 Ordered 150 mg PO DAILY fentaNYL [Duragesic] Med 04/07/20 09:30 Ordered 12 mcg TRDERM Q72H fluocinolone acetonide oiL [Dermotic] Med 04/07/20 09:26 Ordered 4 drop EARBOTH BID PRN metFORMIN [Glucophage] Med 04/07/20 18:00 Ordered 500 mg PO BIDMEALS Resuscitation Status Routine Resus Stat 04/07/20 09:23 Ordered Medication Orders Amlodipine Besylate (Norvasc) 10 mg PO DAILY NAE Artificial Tears (Refresh Tears 0.5%) 1 ml EYEBOTH TID NAE Aspirin (Halfprin) 81 mg PO DAILY NAE Bisacodyl (Dulcolax) 5 mg PO DAILY PRN PRN Reason: Constipation Bupropion HCl (Wellbutrin Sr) 150 mg PO DAILY NAE Clopidogrel Bisulfate (Plavix) 75 mg PO DAILY NAE Dutasteride (Avodart) 0.5 mg PO DAILY NAE Ezetimibe (Zetia) 10 mg PO DAILY NAE Non-Formulary Medication (Efinaconazole [Jublia]) 1 applic TOP DAILY NAE Oxycodone/Acetaminophen (Percocet 325-5 Mg) 1 tab PO Q4H PRN PRN Reason: Pain Assessment/Plan Comment:: 1. Admit to swing bed. 2. PT/OT. 3. Up ad krys. 4. Pain control with Duragesic patch and Percocet when necessary 5. Diabetic diet 6. Accu-Cheks twice a day. - Mortality Measure Prognosis:: Good
[2020-04-07] MEDS: Losartan 50 MG Tab PO SCH (10:21)
[2020-04-07] MEDS: Dutasteride 0.5 MG Cap PO SCH (10:21)
[2020-04-07] MEDS: Sertraline 50 MG Tab PO SCH ×2 (10:22→20:37)
[2020-04-07] MEDS: Metoprolol Tartrate 100 MG Tab PO SCH ×2 (10:22→20:36)
[2020-04-07] MEDS: Aspirin 81 MG Tab.EC PO SCH (10:22)
[2020-04-07] MEDS: amLODIPine 10 MG Tab PO SCH (10:23)
[2020-04-07] MEDS: Carboxymethylcellulose Sodium 0.5% Ophth Soln 15 ML Bottle EYEBOTH SCH ×3 (10:23→20:37)
[2020-04-07] MEDS: buPROPion 150 MG Tab.SR PO SCH (10:24)
[2020-04-07] MEDS: Pantoprazole 40 MG Tab.CR PO SCH (10:24)
[2020-04-07] MEDS: Ezetimibe 10 MG Tab PO SCH (10:28)
[2020-04-07] MEDS: Clopidogrel 75 MG Tab PO SCH (10:28)
[2020-04-07] MEDS: metFORMIN 500 MG Tab PO SCH ×2 (10:28→17:18)
[2020-04-07] MEDS: Hydrochlorothiazide 12.5 MG Cap PO SCH (10:28)
[2020-04-08] MEDS: Aspirin 81 MG Tab.EC PO SCH (08:38)
[2020-04-08] MEDS: Dutasteride 0.5 MG Cap PO SCH (08:39)
[2020-04-08] MEDS: Losartan 50 MG Tab PO SCH (08:39)
[2020-04-08] MEDS: Carboxymethylcellulose Sodium 0.5% Ophth Soln 15 ML Bottle EYEBOTH SCH ×3 (08:39→20:10)
[2020-04-08] MEDS: buPROPion 150 MG Tab.SR PO SCH (08:39)
[2020-04-08] MEDS: amLODIPine 10 MG Tab PO SCH (08:39)
[2020-04-08] MEDS: Sertraline 50 MG Tab PO SCH ×2 (08:40→20:11)
[2020-04-08] MEDS: Metoprolol Tartrate 100 MG Tab PO SCH ×2 (08:40→20:08)
[2020-04-08] MEDS: Pantoprazole 40 MG Tab.CR PO SCH (08:44)
[2020-04-08] MEDS: Ezetimibe 10 MG Tab PO SCH (08:44)
[2020-04-08] MEDS: Clopidogrel 75 MG Tab PO SCH (08:44)
[2020-04-08] MEDS: metFORMIN 500 MG Tab PO SCH ×2 (08:44→17:18)
[2020-04-08] MEDS: Hydrochlorothiazide 12.5 MG Cap PO SCH (08:45)
[2020-04-08] MEDS ORDERED: EFINACONAZOLE TOP SCH (09:00)
[2020-04-08] MEDS: Acetaminophen/oxyCODONE 325-5 MG Tab PO PRN ×2 (11:51→20:13)
[2020-04-08] MEDS: Mirtazapine 15 MG Tab PO SCH (20:12)
[2020-04-09] MEDS: Sertraline 50 MG Tab PO SCH ×2 (08:24→20:31)
[2020-04-09] MEDS: Pantoprazole 40 MG Tab.CR PO SCH (08:25)
[2020-04-09] MEDS: Aspirin 81 MG Tab.EC PO SCH (08:25)
[2020-04-09] MEDS: Ezetimibe 10 MG Tab PO SCH (08:25)
[2020-04-09] MEDS: metFORMIN 500 MG Tab PO SCH ×2 (08:25→18:18)
[2020-04-09] MEDS: Dutasteride 0.5 MG Cap PO SCH (08:25)
[2020-04-09] MEDS: Clopidogrel 75 MG Tab PO SCH (08:25)
[2020-04-09] MEDS: buPROPion 150 MG Tab.SR PO SCH (08:26)
[2020-04-09] MEDS: Losartan 50 MG Tab PO SCH (08:29)
[2020-04-09] MEDS: amLODIPine 10 MG Tab PO SCH (08:29)
[2020-04-09] MEDS: Metoprolol Tartrate 100 MG Tab PO SCH ×2 (08:29→20:31)
[2020-04-09] MEDS: Hydrochlorothiazide 12.5 MG Cap PO SCH (08:29)
--- NOTE | 2020-04-09 08:30 | PCM.PN ---
- General Info Date of Service: 04/09/20 Admission Dx/Problem (Free Text): Patient states he finally had a good night sleep. He says sometimes he feels like he needs to go somewhere is [facility] not even though he knows that he is not supposed to go there. He had a confrontation with the occupational therapist. He said he was going through his clothes. From his perspective it doesn't sound like there was good communication and kicked him out of the room. Says he [place] Bad about It. - Patient Data Vitals - Most Recent: Last Vital Signs Temp 98.0 F 04/09/20 03:37 Pulse 68 04/09/20 03:37 Resp 16 04/09/20 03:37 BP 143/83 H 04/09/20 03:37 Pulse Ox 96 04/09/20 03:37 Weight - Most Recent: 206 lb 1 oz Lab Results Last 24 Hours: Laboratory Results - last 24 hr 04/08/20 04/09/20 Range/Units 17:20 07:20 Sodium 139 (135-145) mmol/L Potassium 3.8 (3.5-5.3) mmol/L Chloride 103 (100-110) mmol/L Carbon Dioxide 27 (21-32) mmol/L BUN 21 H D (7-18) mg/dL Creatinine 1.2 (0.70-1.30) mg/dL Est Cr Clr Drug Dosing 49.08 mL/min Estimated GFR (MDRD) 59 L (>60) BUN/Creatinine Ratio 17.5 (9-20) Glucose 89 (80-116) mg/dL POC Glucose 134 H (74-100) mg/dL Calcium 9.4 (8.6-10.2) mg/dL Med Orders - Current: Current Medications Amlodipine Besylate (Norvasc) 10 mg PO DAILY [facility] Last Admin: 04/08/20 08:39 Dose: 10 mg Documented by: Artificial Tears (Refresh Tears 0.5%) 0 ml EYEBOTH TID [facility] Last Admin: 04/08/20 20:10 Dose: 1 drop Documented by: Aspirin (Halfprin) 81 mg PO DAILY [facility] Last Admin: 04/08/20 08:38 Dose: 81 mg Documented by: Bisacodyl (Dulcolax) 5 mg PO DAILY PRN PRN Reason: Constipation Last Admin: 04/07/20 10:21 Dose: 5 mg Documented by: Bupropion HCl (Wellbutrin Sr) 150 mg PO DAILY [facility] Last Admin: 04/08/20 08:39 Dose: 150 mg Documented by: Clopidogrel Bisulfate (Plavix) 75 mg PO DAILY [facility] Last Admin: 04/08/20 08:44 Dose: 75 mg Documented by: Dutasteride (Avodart) 0.5 mg PO DAILY [facility] Last Admin: 04/08/20 08:39 Dose: 0.5 mg Documented by: Ezetimibe (Zetia) 10 mg PO DAILY [facility] Last Admin: 04/08/20 08:44 Dose: 10 mg Documented by: Fentanyl (Duragesic) 12 mcg TRDERM Q72H [facility] Hydrochlorothiazide (Hydrochlorothiazide) 12.5 mg PO DAILY [facility] Last Admin: 04/08/20 08:45 Dose: 12.5 mg Documented by: Ketoconazole (Nizoral 2% Shampoo) 0 ml TOP ASDIRECTED PRN PRN Reason: Itching Losartan Potassium (Cozaar) 50 mg PO DAILY [facility] Last Admin: 04/08/20 08:39 Dose: 50 mg Documented by: Metformin HCl (Glucophage) 500 mg PO BIDMEALS [facility] Last Admin: 04/08/20 17:18 Dose: 500 mg Documented by: Metoprolol Tartrate (Lopressor) 100 mg PO BID [facility] Last Admin: 04/08/20 20:08 Dose: 100 mg Documented by: Mirtazapine (Remeron) 7.5 mg PO BEDTIME [facility] Last Admin: 04/08/20 20:12 Dose: 7.5 mg Documented by: Oxycodone/Acetaminophen (Percocet 325-5 Mg) 1 tab PO Q4H PRN PRN Reason: Pain Last Admin: 04/08/20 20:13 Dose: 1 tab Documented by: Pantoprazole Sodium (Protonix) 40 mg PO DAILY [facility] Last Admin: 04/08/20 08:44 Dose: 40 mg Documented by: Senna/Docusate Sodium (Senna Plus) 1 tab PO BID PRN PRN Reason: Constipation Sertraline HCl (Zoloft) 50 mg PO BEDTIME [facility] Last Admin: 04/08/20 20:11 Dose: 50 mg Documented by: Sertraline HCl (Zoloft) 150 mg PO DAILY [facility] Last Admin: 04/08/20 08:40 Dose: 150 mg Documented by: Discontinued Medications Non-Formulary Medication (Efinaconazole [Jublia]) 1 applic TOP DAILY NAE Non-Formulary Medication (Fluocinolone Acetonide Oil [Dermotic]) 4 drop EARBOTH BID PRN PRN Reason: Itching - Exam General: Alert, Oriented, Cooperative Sepsis Event Note - Evaluation Sepsis Screening Result: No Definite Risk - Focused Exam Vital Signs: Vital Signs Temp Pulse Resp BP Pulse Ox 04/09/20 03:37 98.0 F 68 16 143/83 H 96 - Problem List & Annotations (1) EVAN (acute kidney injury) SNOMED Code(s): 64282728, 31375116 Code(s): N17.9 - ACUTE KIDNEY FAILURE, UNSPECIFIED Status: Acute Current Visit: No (2) Multiple fractures of ribs of left side SNOMED Code(s): 5392616 Code(s): S22.42XA - MULTIPLE FRACTURES OF RIBS, LEFT SIDE, INIT FOR CLOS FX Status: Acute Current Visit: No (3) Pleural effusion on left SNOMED Code(s): 39699229 Code(s): J90 - PLEURAL EFFUSION, NOT ELSEWHERE CLASSIFIED Status: Acute Current Visit: No (4) Pneumothorax, left SNOMED Code(s): 229990955 Code(s): J93.9 - PNEUMOTHORAX, UNSPECIFIED Status: Acute Current Visit: No (5) DM2 (diabetes mellitus, type 2) SNOMED Code(s): 77879375 Code(s): E11.9 - TYPE 2 DIABETES MELLITUS WITHOUT COMPLICATIONS Status: Chronic Current Visit: No - Problem List Review Problem List Initiated/Reviewed/Updated: Yes - My Orders Last 24 Hours: My Active Orders 04/08/20 21:00 Mirtazapine [Remeron] 7.5 mg PO BEDTIME 04/09/20 09:00 fentaNYL [Duragesic] 12 mcg TRDERM Q72H - Plan Plan:: I gave Remeron last night it helped him sleep. As I discussed with the patient. See how his mentation is today because the narcotics have been causing some confusion. This is happened to him before according to his when he had cardiac surgery. He also has not been sleeping well so will give him 4-5 hours and see how well he is mentating per nurse. If he mentating well will continue Duragesic patch. If he's not mentating well. I will continue the patch. If he is not all start a non-steroidal anti-inflammatory. Kidney test was checked today and this improved from last week.
[2020-04-09] MEDS: Carboxymethylcellulose Sodium 0.5% Ophth Soln 15 ML Bottle EYEBOTH SCH ×3 (08:36→20:29)
[2020-04-09] MEDS ORDERED: fentaNYL 12 MCG/HR Transdermal Patch TRDERM SCH ×2 (09:00→12:00)
[2020-04-09] MEDS: Acetaminophen/oxyCODONE 325-5 MG Tab PO PRN ×3 (12:35→20:39)
[2020-04-09] MEDS: Mirtazapine 15 MG Tab PO SCH (20:31)
[2020-04-10] MEDS: buPROPion 150 MG Tab.SR PO SCH (08:10)
[2020-04-10] MEDS: Dutasteride 0.5 MG Cap PO SCH (08:10)
[2020-04-10] MEDS: amLODIPine 10 MG Tab PO SCH (08:10)
[2020-04-10] MEDS: Clopidogrel 75 MG Tab PO SCH (08:10)
[2020-04-10] MEDS: Aspirin 81 MG Tab.EC PO SCH (08:10)
[2020-04-10] MEDS: metFORMIN 500 MG Tab PO SCH (08:10)
[2020-04-10] MEDS: Ezetimibe 10 MG Tab PO SCH (08:10)
[2020-04-10] MEDS: Sertraline 50 MG Tab PO SCH (08:10)
[2020-04-10] MEDS: Hydrochlorothiazide 12.5 MG Cap PO SCH (08:11)
[2020-04-10] MEDS: Losartan 50 MG Tab PO SCH (08:11)
[2020-04-10] MEDS: Pantoprazole 40 MG Tab.CR PO SCH (08:11)
[2020-04-10] MEDS: Metoprolol Tartrate 100 MG Tab PO SCH (08:11)
[2020-04-10 08:12] VITALS: BP 147/61; PULSE 60
[2020-04-10] MEDS: Carboxymethylcellulose Sodium 0.5% Ophth Soln 15 ML Bottle EYEBOTH SCH (08:12)
--- NOTE | 2020-04-10 08:55 | PCM.SN.2 ---
- Free Text/Narrative Note: Patient has had 2 good nights sleep with the Remeron. His cognition is improved significantly. He is able to do everything needs to do with a fentanyl patch. Occasionally needs a little Percocet for pain. We will discharge to home. Most likely he will not be home bound so he will not qualify for home health. His size of is feasible she will call and we will order home health.
--- NOTE | 2020-04-10 09:17 | PCM.DCSUM1 ---
Discharge Summary - Hospital Course Free Text/Narrative:: Swing bed course-patient was placed in swing bed with PT/OT. Patient was on Levophed no Lucas really helped his pain. But there is some confusion going on. He was not sleeping at night switch try some Remeron which made him sleep very well. His confusion was much improved. He was able to function and do most what he needs to do and his pain was controlled. He uses Percocet occasionally. His blood sugar was under good control. His kidney function also improved. Since he will not a homebound can send him home on home health. Have him check a with primary provider in one week. Brief History: This is a 80-year-old male patient that fell at home and has multiple left rib fractures. He came into the hospital and was admitted for pain control, small pneumothorax with no chest tube, hemothorax and possible lung contusion. He was hypoxic and oxygen 6 L during his hospitalization that was weaned down. He was slowly titrated up on his medication until he finally had some improvement on a Duragesic patch and Percocet when necessary. Receiving physical therapy and occupational therapy and he is good enough to go to swing bed today. Diagnosis: Stroke: No - Discharge Data Discharge Date: 04/10/20 Discharge Disposition: Home, Self-Care 01 Condition: Good - Referral to Home Health Primary Care Physician: Leatha Silverio NP - Discharge Diagnosis/Problem(s) (1) EVAN (acute kidney injury) SNOMED Code(s): 64512861, 93552901 ICD Code: N17.9 - ACUTE KIDNEY FAILURE, UNSPECIFIED Status: Acute Current Visit: No (2) Multiple fractures of ribs of left side SNOMED Code(s): 6169493 ICD Code: S22.42XA - MULTIPLE FRACTURES OF RIBS, LEFT SIDE, INIT FOR CLOS FX Status: Acute Current Visit: No (3) Pleural effusion on left SNOMED Code(s): 82676406 ICD Code: J90 - PLEURAL EFFUSION, NOT ELSEWHERE CLASSIFIED Status: Acute Current Visit: No (4) Pneumothorax, left SNOMED Code(s): 086393586 ICD Code: J93.9 - PNEUMOTHORAX, UNSPECIFIED Status: Acute Current Visit: No (5) DM2 (diabetes mellitus, type 2) SNOMED Code(s): 43733755 ICD Code: E11.9 - TYPE 2 DIABETES MELLITUS WITHOUT COMPLICATIONS Status: Chronic Current Visit: No - Patient Summary/Data Consults: Consultations 04/07/20 09:23 OT Evaluation and Treatment [CONS] Routine Please Evaluate and Treat. OT Reason for Consult: ADL's This query below is only for informational purposes and is not editable. PT Evaluation and Treatment [CONS] Routine Please Evaluate and Treat. PT Reason for Consult: Ambulation This query below is only for informational purposes and is not editable. - Patient Instructions Diet: Diabetic Diet Activity: As Tolerated Driving: Do Not Drive Showering/Bathing: May Shower Notify Provider of: Increased Pain Other/Special Instructions: 1. Recheck with primary provider 1 week. - Discharge Plan Prescriptions/Med Rec: fentaNYL [Duragesic] 12 mcg TRDERM Q72H #7 patch Hydrocodone/Acetaminophen [Hydrocodon-Acetaminophen 5-325] 1 each PO Q4H #30 tablet Mirtazapine [Remeron] 7.5 mg PO BEDTIME #30 tablet Home Medications: Home Meds Aspirin [Low Dose Aspirin EC] 81 mg PO DAILY 01/05/17 [History] Efinaconazole [Jublia] 1 applic TOP DAILY 01/05/17 [History] Ezetimibe [Zetia] 10 mg PO DAILY 01/05/17 [History] Ketoconazole [Nizoral 2% Shampoo] 1 applic TOP ASDIRECTED PRN 01/05/17 [History] Losartan/Hydrochlorothiazide [Losartan-HCTZ 100-25 MG] 0.5 tab PO DAILY 01/05/17 [History] Metoprolol Tartrate [Lopressor] 100 mg PO BID 01/05/17 [History] Omeprazole 20 mg PO DAILY 01/05/17 [History] Rosuvastatin [Crestor] 40 mg PO BEDTIME 01/05/17 [History] Sennosides/Docusate Sodium [Senna-Docusate Sodium] 1 each PO BID PRN 01/05/17 [History] Sertraline [Zoloft] 50 mg PO BEDTIME 01/05/17 [History] Sertraline [Zoloft] 150 mg PO DAILY 01/05/17 [History] amLODIPine [Norvasc] 10 mg PO DAILY 01/05/17 [History] buPROPion [Wellbutrin SR] 150 mg PO DAILY 01/05/17 [History] fluocinolone acetonide oiL [Dermotic] 4 drop EARBOTH BID PRN 01/05/17 [History] Clopidogrel [Plavix] 75 mg PO DAILY 09/11/19 [History] Dutasteride [Avodart] 0.5 mg PO DAILY 09/11/19 [History] Cyclobenzaprine [Flexeril] 5 mg TID PRN 04/02/20 [History] metFORMIN [Glucophage] 500 mg PO BIDMEALS 04/02/20 [History] Carboxymethylcellulose Sodium [Refresh Tears 0.5%] 0 ml EYEBOTH TID bottle 04/07/20 [Rx] Hydrocodone/Acetaminophen [Hydrocodon-Acetaminophen 5-325] 1 each PO Q4H #30 tablet 04/10/20 [Rx] Mirtazapine [Remeron] 7.5 mg PO BEDTIME #30 tablet 04/10/20 [Rx] fentaNYL [Duragesic] 12 mcg TRDERM Q72H #7 patch 04/10/20 [Rx] Patient Handouts: Rib Fracture, Fall Prevention in Hospitals, Adult, Venous Thromboembolism Prevention - Discharge Summary/Plan Comment DC Time >30 min.: No - Patient Data Vitals - Most Recent: Last Vital Signs Temp 97.8 F 04/10/20 08:00 Pulse 60 04/10/20 08:11 Resp 17 04/10/20 08:00 BP 147/61 H 04/10/20 08:11 Pulse Ox 95 04/10/20 08:00 Weight - Most Recent: 206 lb 1 oz Lab Results - Last 24 hrs: Laboratory Results - last 24 hr 04/09/20 Range/Units 16:56 POC Glucose 105 H (74-100) mg/dL Med Orders - Current: Current Medications Amlodipine Besylate (Norvasc) 10 mg PO DAILY [facility] Last Admin: 04/10/20 08:10 Dose: 10 mg Documented by: Artificial Tears (Refresh Tears 0.5%) 0 ml EYEBOTH TID [facility] Last Admin: 04/10/20 08:12 Dose: 1 drop Documented by: Aspirin (Halfprin) 81 mg PO DAILY [facility] Last Admin: 04/10/20 08:10 Dose: 81 mg Documented by: Bisacodyl (Dulcolax) 5 mg PO DAILY PRN PRN Reason: Constipation Last Admin: 04/07/20 10:21 Dose: 5 mg Documented by: Bupropion HCl (Wellbutrin Sr) 150 mg PO DAILY [facility] Last Admin: 04/10/20 08:10 Dose: 150 mg Documented by: Clopidogrel Bisulfate (Plavix) 75 mg PO DAILY [facility] Last Admin: 04/10/20 08:10 Dose: 75 mg Documented by: Dutasteride (Avodart) 0.5 mg PO DAILY [facility] Last Admin: 04/10/20 08:10 Dose: 0.5 mg Documented by: Ezetimibe (Zetia) 10 mg PO DAILY [facility] Last Admin: 04/10/20 08:10 Dose: 10 mg Documented by: Fentanyl (Duragesic) 12 mcg TRDERM Q72H [facility] Last Admin: 04/09/20 16:07 Dose: 12 mcg Documented by: Hydrochlorothiazide (Hydrochlorothiazide) 12.5 mg PO DAILY [facility] Last Admin: 04/10/20 08:11 Dose: 12.5 mg Documented by: Ketoconazole (Nizoral 2% Shampoo) 0 ml TOP ASDIRECTED PRN PRN Reason: Itching Losartan Potassium (Cozaar) 50 mg PO DAILY [facility] Last Admin: 04/10/20 08:11 Dose: 50 mg Documented by: Metformin HCl (Glucophage) 500 mg PO BIDMEALS [facility] Last Admin: 04/10/20 08:10 Dose: 500 mg Documented by: Metoprolol Tartrate (Lopressor) 100 mg PO BID [facility] Last Admin: 04/10/20 08:11 Dose: 100 mg Documented by: Mirtazapine (Remeron) 7.5 mg PO BEDTIME [facility] Last Admin: 04/09/20 20:31 Dose: 7.5 mg Documented by: Oxycodone/Acetaminophen (Percocet 325-5 Mg) 1 tab PO Q4H PRN PRN Reason: Pain Last Admin: 04/09/20 20:39 Dose: 1 tab Documented by: Pantoprazole Sodium (Protonix) 40 mg PO DAILY [facility] Last Admin: 04/10/20 08:11 Dose: 40 mg Documented by: Senna/Docusate Sodium (Senna Plus) 1 tab PO BID PRN PRN Reason: Constipation Last Admin: 04/09/20 18:52 Dose: 1 tab Documented by: Sertraline HCl (Zoloft) 50 mg PO BEDTIME [facility] Last Admin: 04/09/20 20:31 Dose: 50 mg Documented by: Sertraline HCl (Zoloft) 150 mg PO DAILY [facility] Last Admin: 04/10/20 08:10 Dose: 150 mg Documented by: Discontinued Medications Fentanyl (Duragesic) 12 mcg TRDERM Q72H [facility] Last Admin: 04/09/20 16:24 Dose: Not Given Documented by: Non-Formulary Medication (Efinaconazole [Jublia]) 1 applic TOP DAILY [facility] Non-Formulary Medication (Fluocinolone Acetonide Oil [Dermotic]) 4 drop EARBOTH BID PRN PRN Reason: Itching
[2020-04-10] MEDS: Acetaminophen/oxyCODONE 325-5 MG Tab PO PRN (10:52)
== END 2020-04-10 11:00 | disposition home or self-care (01) | DRG 200 ==
LOC: FB.MS 08:09
PROVIDERS: ADMIT Family Medicine; ATTEND Family Medicine
DX: S27.0XXA Traumatic pneumothorax, initial encounter (principal); S22.42XA Multiple fractures of ribs, left side, initial encounter for closed fracture; N17.9 Acute kidney failure, unspecified; J90 Pleural effusion, not elsewhere classified; I25.10 Atherosclerotic heart disease of native coronary artery without angina pectoris; E78.00 Pure hypercholesterolemia, unspecified; I10 Essential (primary) hypertension; E11.42 Type 2 diabetes mellitus with diabetic polyneuropathy; E11.51 Type 2 diabetes mellitus with diabetic peripheral angiopathy without gangrene; M19.90 Unspecified osteoarthritis, unspecified site; Z96.651 Presence of right artificial knee joint; E66.9 Obesity, unspecified; Z79.01 Long term (current) use of anticoagulants; Z91.040 Latex allergy status; Z79.82 Long term (current) use of aspirin; Z79.899 Other long term (current) drug therapy; Z79.84 Long term (current) use of oral hypoglycemic drugs; I25.2 Old myocardial infarction; Z98.49 Cataract extraction status, unspecified eye; Z68.31 Body mass index [BMI] 31.0-31.9, adult
CPT/HCPCS: 36415; 80048; 82962; 97116-GP; 97530-GP; 97535-GO; A9270-GY

== ENCOUNTER 2021-11-21 12:19 | Emergency (ER) | payer MEDICARE, OTHER ==
[2021-11-21] MEDS ORDERED: Sodium Chloride 0.9% 10 ML Syringe FLUSH PRN (12:31)
[2021-11-21 12:44] VITALS: BP 153/87; PULSE 71
== END 2021-11-21 14:10 | disposition home or self-care (01) ==
LOC: FB.ED 12:19
DX: I25.810 Atherosclerosis of coronary artery bypass graft(s) without angina pectoris (principal); E78.00 Pure hypercholesterolemia, unspecified; I10 Essential (primary) hypertension; I25.2 Old myocardial infarction; K21.9 Gastro-esophageal reflux disease without esophagitis; E11.9 Type 2 diabetes mellitus without complications; E78.5 Hyperlipidemia, unspecified; E66.9 Obesity, unspecified; Z91.040 Latex allergy status; Z79.82 Long term (current) use of aspirin; Z79.899 Other long term (current) drug therapy; Z68.26 Body mass index [BMI] 26.0-26.9, adult
CPT/HCPCS: 36415; 71045; 80053; 82150; 83690; 83880; 84484; 85025; 85379; 85610; 85730; 93005; 93010; 99283; 99285-25

== ENCOUNTER 2021-11-27 16:14 | Observation (INO) | payer MEDICARE, OTHER ==
[2021-11-27] MEDS ORDERED: Non-Formulary Medication 1 Each (Cyclobenzaprine [Flexeril] 10 MG Tablet) PO PRN (17:32)
[2021-11-27] MEDS ORDERED: Sodium Chloride 0.9% 1,000 ML IV SCH (19:15)
[2021-11-27] MEDS ORDERED: Iopamidol 755 Mg/ML 100 ML Bottle IV ONE (19:23)
[2021-11-27] MEDS: Lactated Ringers 1,000 ML IV SCH (20:31)
[2021-11-27] MEDS: Ondansetron 4 MG/2 ML SDV IVPUSH PRN (20:40)
[2021-11-27] MEDS ORDERED: Non-Formulary Medication 1 Each (Rosuvastatin [Crestor] 40 MG Tablet) PO SCH (21:00)
[2021-11-27] MEDS ORDERED: SERTRALINE 100 MG PO SCH (21:00)
[2021-11-28] MEDS: Ondansetron 4 MG/2 ML SDV IVPUSH PRN (01:27)
[2021-11-28] MEDS: Carboxymethylcellulose Sodium 0.5% Ophth Soln 15 ML Bottle EYEBOTH PRN ×2 (04:12→09:54)
[2021-11-28] MEDS: Lactated Ringers 1,000 ML IV SCH (06:13)
[2021-11-28] MEDS ORDERED: Clobetasol 0.05% Crm 15 GM Tube TOP PRN (07:56)
[2021-11-28] MEDS ORDERED: Polyethylene Glycol 3350 Powder 17 GM Packet PO PRN (07:58)
[2021-11-28 08:19] VITALS: BP 144/71; PULSE 72
[2021-11-28] MEDS ORDERED: Clopidogrel 75 MG Tab *PTOM PO SCH (09:00)
[2021-11-28] MEDS ORDERED: BUPROPION 150 MG PO SCH (09:00)
[2021-11-28] MEDS ORDERED: DUTASTERIDE 0.5 MG PO SCH (09:00)
[2021-11-28] MEDS ORDERED: Losartan 50 MG Tab *PTOM PO SCH (09:00)
[2021-11-28] MEDS ORDERED: Hydrochlorothiazide 12.5 MG Cap *PTOM PO SCH (09:00)
[2021-11-28] MEDS ORDERED: EZETIMIBE 10 MG PO SCH (09:00)
[2021-11-28] MEDS ORDERED: [UNRECOGNIZED DRUG - REMARK] PO SCH (09:00)
[2021-11-28] MEDS ORDERED: Sertraline 100 MG Tab PO SCH (09:00)
[2021-11-28] MEDS ORDERED: Aspirin 81 MG Tab.EC *PTOM PO SCH (09:00)
[2021-11-28] MEDS ORDERED: amLODIPine 5 MG Tab *PTOM PO SCH (09:00)
[2021-11-28] MEDS ORDERED: Bisacodyl 10 MG Supp RECTAL ONE (10:50)
[2021-11-28] MEDS ORDERED: SERTRALINE 100 MG PO SCH (21:00)
== END 2021-11-28 14:30 ==
LOC: FB.MS 16:14
PROVIDERS: ADMIT Family Medicine; ATTEND Family Medicine
DX: R11.2 Nausea with vomiting, unspecified (principal); R17 Unspecified jaundice; H54.7 Unspecified visual loss; I25.810 Atherosclerosis of coronary artery bypass graft(s) without angina pectoris; E78.00 Pure hypercholesterolemia, unspecified; K59.00 Constipation, unspecified; I10 Essential (primary) hypertension; I25.2 Old myocardial infarction; E66.9 Obesity, unspecified; E11.51 Type 2 diabetes mellitus with diabetic peripheral angiopathy without gangrene; M19.90 Unspecified osteoarthritis, unspecified site; Z51.5 Encounter for palliative care; Z20.822 Contact with and (suspected) exposure to COVID-19; Z68.29 Body mass index [BMI] 29.0-29.9, adult; Z79.82 Long term (current) use of aspirin; Z79.899 Other long term (current) drug therapy; Z79.02 Long term (current) use of antithrombotics/antiplatelets; Z79.1 Long term (current) use of non-steroidal anti-inflammatories (NSAID); Z87.891 Personal history of nicotine dependence
CPT/HCPCS: 36415; 74177; 80053; 82247; 82248; 83690; 85025; 85027; 96374; 96376; A9270-GY; G0378; G0379; J2405; J7120; Q9967; U0002

== ENCOUNTER 2022-01-03 01:00 | Emergency (ER) | payer MEDICARE, OTHER ==
[2022-01-03 01:17] VITALS: BP 152/82; PULSE 90
[2022-01-03] MEDS ORDERED: Sodium Chloride 0.9% 1,000 ML IV SCH (01:30)
[2022-01-03] MEDS ORDERED: Ondansetron 4 MG/2 ML SDV IVPUSH ONE (01:30)
[2022-01-03] MEDS ORDERED: Prochlorperazine 10 MG in Sodium Chloride 0.9% 50 ML IV ONE (01:37)
[2022-01-03] MEDS: Sodium Chloride 0.9% 10 ML Syringe FLUSH PRN ×2 (01:50→03:15)
== END 2022-01-03 03:25 | disposition home or self-care (01) ==
LOC: FB.ED 01:00
DX: C22.8 Malignant neoplasm of liver, primary, unspecified as to type (principal); E86.0 Dehydration; I25.119 Atherosclerotic heart disease of native coronary artery with unspecified angina pectoris; E78.00 Pure hypercholesterolemia, unspecified; I10 Essential (primary) hypertension; I25.2 Old myocardial infarction; K21.9 Gastro-esophageal reflux disease without esophagitis; E11.9 Type 2 diabetes mellitus without complications; E66.9 Obesity, unspecified; Z79.899 Other long term (current) drug therapy; Z68.29 Body mass index [BMI] 29.0-29.9, adult
CPT/HCPCS: 36415; 80053; 85025; 96361; 96365; 96375; 99284; J0780; J1642; J2405; J3490; J7030; 99282

== ENCOUNTER 2022-03-30 22:02 | Emergency (ER) | payer MEDICARE, OTHER ==
[2022-03-30 22:40] LABS: ESTIMATED GFR 61 mL/min (>60)
[2022-03-30 23:09] VITALS: BP 132/52; PULSE 86
[2022-03-31] MEDS ORDERED: Potassium Chloride 20 MEQ Packet PO ONE (00:11)
== END 2022-03-31 00:40 | disposition home or self-care (01) ==
LOC: FB.ED 22:02
DX: R63.0 Anorexia (principal); E87.6 Hypokalemia; E83.51 Hypocalcemia; K21.9 Gastro-esophageal reflux disease without esophagitis; I25.119 Atherosclerotic heart disease of native coronary artery with unspecified angina pectoris; E78.00 Pure hypercholesterolemia, unspecified; I10 Essential (primary) hypertension; I25.2 Old myocardial infarction; E11.9 Type 2 diabetes mellitus without complications; E66.9 Obesity, unspecified; Z91.040 Latex allergy status; Z79.899 Other long term (current) drug therapy; Z79.02 Long term (current) use of antithrombotics/antiplatelets; Z95.1 Presence of aortocoronary bypass graft; Z20.822 Contact with and (suspected) exposure to COVID-19; Z68.26 Body mass index [BMI] 26.0-26.9, adult
CPT/HCPCS: 36415; 80053; 81001; 85025; 86140; 99282; 99284; A9270-GY; U0002

== ENCOUNTER 2022-06-07 18:55 | Emergency (ER) | payer MEDICARE, OTHER ==
[2022-06-07 21:51] LABS: ESTIMATED GFR 86 mL/min (>60)
[2022-06-07] MEDS: Simethicone 80 MG Tab.Chew PO STA (22:16)
[2022-06-07] MEDS: Polyethylene Glycol 3350 Powder 17 GM Packet PO ONE (22:16)
[2022-06-07] MEDS: NS + KCl 20mEq/L 1,000 ML IV SCH (22:17)
[2022-06-07] MEDS: Ondansetron 4 MG/2 ML SDV IVPUSH ONE (22:24)
[2022-06-07] MEDS: Ondansetron 4 MG/2 ML SDV ONE (23:50)
[2022-06-08] MEDS: Iopamidol 755 Mg/ML 100 ML Bottle IV ONE (00:13)
[2022-06-08 01:03] VITALS: BP 154/78; PULSE 84
== END 2022-06-08 00:53 | disposition home or self-care (01) ==
LOC: FB.ED 18:55
DX: K59.03 Drug induced constipation (principal); E86.0 Dehydration; I25.119 Atherosclerotic heart disease of native coronary artery with unspecified angina pectoris; E78.00 Pure hypercholesterolemia, unspecified; I10 Essential (primary) hypertension; I25.2 Old myocardial infarction; K21.9 Gastro-esophageal reflux disease without esophagitis; E11.40 Type 2 diabetes mellitus with diabetic neuropathy, unspecified; N40.0 Benign prostatic hyperplasia without lower urinary tract symptoms; M19.90 Unspecified osteoarthritis, unspecified site; Z91.040 Latex allergy status; Z79.02 Long term (current) use of antithrombotics/antiplatelets; Z79.899 Other long term (current) drug therapy
CPT/HCPCS: 36415; 74019; 74177; 80048; 81001; 96365; 96366; 96375; 99284-25; A9270-GY; J1642; J2405; J3480; Q9967

== ENCOUNTER 2022-06-08 05:32 | Emergency (ER) | payer MEDICARE, OTHER ==
[2022-06-08 05:53] VITALS: BP 174/89; PULSE 100
[2022-06-08] MEDS: Temazepam 7.5 MG Cap PO ONE (06:01)
== END 2022-06-08 14:50 | disposition home or self-care (01) ==
LOC: FB.ED 05:32
DX: C22.0 Liver cell carcinoma (principal); G47.01 Insomnia due to medical condition; R53.1 Weakness; I25.119 Atherosclerotic heart disease of native coronary artery with unspecified angina pectoris; E78.00 Pure hypercholesterolemia, unspecified; I10 Essential (primary) hypertension; I25.2 Old myocardial infarction; K21.9 Gastro-esophageal reflux disease without esophagitis; E11.40 Type 2 diabetes mellitus with diabetic neuropathy, unspecified; Z91.040 Latex allergy status; Z79.02 Long term (current) use of antithrombotics/antiplatelets; Z87.891 Personal history of nicotine dependence; K59.03 Drug induced constipation; E86.0 Dehydration; N40.0 Benign prostatic hyperplasia without lower urinary tract symptoms; M19.90 Unspecified osteoarthritis, unspecified site; Z79.899 Other long term (current) drug therapy
CPT/HCPCS: 36415; 74019; 74177; 80048; 81001; 96365; 96366; 96375; 99284; 99284-25; A9270-GY; J1642; J2405; J3480; Q9967